=== PATIENT | female | born 1935 | race Caucasian/White ===

== ENCOUNTER 2017-04-28 12:05 | Emergency (ER) | payer MEDICARE, OTHER ==
[~2017-04-28] VITALS: Ht 167.6 cm; Wt 74.0 kg
[~2017-04-28 12:05] MED LIST: ALPR0.25 PO; ATEN-100 PO; CALC1TAB42 PO; CYCL1PAK PO; DILT30 PO; DOCU1CAP39 PO; DULO20 PO; DUONI NEB; ENEMENE PR; FENT25DI T-DERMAL; LANO0.1212 PO; LIDO5T TD; MILKSUS5 PO; NEUR600T PO; OXYC1SOL5 PO; PERI8.6T PO; PRAV20 PO; PREG25 PO; PRIL20CA PO; TRAZ50TA4 PO; WARF2 PO; [UNRECOGNIZED DRUG - OTHER] PO
[2017-04-28 12:26] VITALS: BP 128/58; PULSE 59; RESP 20; TEMP 97.8; O2SAT 95
[2017-04-28 12:36] VITALS: O2SAT 95
--- NOTE | 2017-04-28 12:37 | PD ---
HPI Chief Complaint: Dizziness Time Seen by Provider: 12:32 Travel History International Travel<30 days: No Contact w/Intl Traveler<30days: No Traveled to known affect area: No History of Present Illness HPI 81-year-old female with PMH of A. fib, chronic pain, left AKA, CHF, on Coumadin presents to the ED [facility] for evaluation of intermittent dizziness. Onset this morning. Patient denies vertigo symptoms. She complains of accompanying shortness of breath and nonproductive cough for "about a week." She endorses palpitations, which she states are chronic. She endorses chronic swelling of left lower extremity, no worse today. She denies headache, vision changes, chest pain, abdominal pain, nausea, vomiting, changes in bowel habits, dysuria. She does ambulate on her prosthesis. PFSH Past Medical History Hx Anticoagulant Therapy: Yes (warfarin) Arthritis: Yes Atrial Fibrillation: Yes Blood Disorders: No Anxiety: Yes Depression: No Heart Rhythm Problems: Yes (a fib) Cancer: No Cardiovascular Problems: Yes High Cholesterol: Yes Chemotherapy: No Chest Pain: No Congestive Heart Failure: Yes Diabetes: No Diminished Hearing: Yes Endocrine: No Gastrointestinal Disorders: Yes (ibs) GERD: Yes Genitourinary: No Hypertension: Yes Immune Disorder: No Musculoskeletal: Yes (chronic back pain) Neurologic: No Reproductive: No Respiratory: Yes (asthma) Immunizations Current: Yes Radiation Therapy: No Sleep Apnea: No Thyroid Disease: No Triglycerides - High: Yes (hyperlipidemia) Ulcer: No Past Surgical History Endocrine Surgery: Yes (TONSILLECTEMY) Eye Surgery: Yes (cataract) Gynecologic Surgery: Yes (TUBAL LIGATION) Hysterectomy: Yes Tonsillectomy: Yes Other Surgery: Yes (thoracic back surgery ,hysterectomy) Social History Alcohol Use: No Tobacco Use: No (quit 6 yrs ago) Substance Use: No Allergies-Medications (Allergen,Severity, Reaction): Coded Allergies: vancomycin (Unverified Allergy, Intermediate, Itching, 04/28/17) *MDRO Multi-Drug Resistant Organism (Verified Adverse Reaction, Unknown, 04/28/17) 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; 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 Uncoded Allergies: cefepime (Allergy, Severe, Rash, 05/13/15) Reported Meds & Prescriptions Reported Meds & Active Scripts Active Macrobid (Nitrofurantoin Monoh/Nitrofur Macro) 100 Mg Cap 100 Mg PO BID 5 Days Reported Zanaflex (Tizanidine HCl) 4 Mg Tab 4 Mg PO Q8HR PRN Milk of Magnesia Liq (Magnesium Hydroxide) 400 Mg/5 Ml Susp 30 Ml PO Q4HR PRN Loperamide (Loperamide HCl) 2 Mg Tablet 4 Mg PO INITIAL DOSE PRN After initial dose give 1 tab (2mg) after each loose stool-not to exceed 8 tablets/24hrs-May give liquid if unable to give tablet Vajrpqjh-Byueulowa-Uxovjlohsjk Liq 200-200-20 Mg/5 Ml Susp 30 Ml PO Q4HR PRN Take between meals or as directed. Shake well. Do not exceed 120 mL/24 hrs. Dulcolax Supp (Bisacodyl) 10 Mg Supp 10 Mg RECTAL DAILY PRN Tylenol (Acetaminophen) 325 Mg Tab 650 Mg PO Q4H PRN Coumadin (Warfarin) 1 Mg Tab 1 Mg PO DAILY@1600 Symbicort Inh (Budesonide/Formoterol Fumarate) 160-4.5 Mcg/Act Aero 1 Puff INH BID Senna-Docusate Sodium Tablet (Sennosides/Docusate Sodium) 8.6 Mg-50 Mg Tablet 1 Tab PO BID Requip (Ropinirole HCl) 0.25 Mg Tab 0.25 Mg PO HS Miralax Powder (Polyethylene Glycol 3350 Powder) 17 Gm Powd 17 Gm PO DAILY Mix and dissolve one measuring capful (17 grams) in 4-8oz water/juice. Prilosec (Omeprazole Magnesium) 20 Mg Tab 20 Mg PO DAILY Nystatin Topical 100,000 Unit/Gram Pow 1 Applic TOPICAL BID Apply to groin and inner thighs (instead of baby powder) Multi-Vitamin/Minerals (Multiple Vitamins W/ Minerals) 1 Tab Tab 1 Tab PO DAILY Lovastatin 20 Mg Tab 20 Mg PO DAILY Hydroxyzine HCl 25 Mg Tab 25 Mg PO HS Neurontin (Gabapentin) 600 Mg Tab 600 Mg PO TID Fentanyl Patch 72 HR (Fentanyl) 25 Mcg/Hr Patch 25 Mcg T-DERMAL Q72H Remove old patch before applying new patch Cymbalta DR (Duloxetine HCl) 30 Mg Capdr 30 Mg PO DAILY Cardizem (Diltiazem HCl) 30 Mg Tab 30 Mg PO QID Lanoxin (Digoxin) 125 Mcg Tablet 125 Mcg PO DAILY Caltrate 600+D Chew (Calcium Carbonate-Vitamin D Chew) 600-400 Mg-Unit Chew 1 Tab PO BID Tenormin (Atenolol) 25 Mg Tab 25 Mg PO DAILY Review of Systems Except as stated in HPI: all other systems reviewed are Neg Physical Exam Narrative GENERAL: Well-nourished, well-developed pleasant white female in no acute distress. A&O 4 SKIN: Focused skin assessment warm/dry. HEAD: Normocephalic. Atraumatic. EYES: No scleral icterus. No injection or drainage. NECK: Supple, trachea midline. No JVD or lymphadenopathy. CARDIOVASCULAR: Regular rate and rhythm without murmurs, gallops, or rubs. RESPIRATORY: Breath sounds clear and equal bilaterally. No accessory muscle use. GASTROINTESTINAL: Abdomen soft, non-tender, nondistended. Active bowel sounds. MUSCULOSKELETAL: No cyanosis. Left AKA with no signs of infection. Trace edema in the right lower extremity. NEUROLOGICAL: Awake and alert. Cranial nerves II through XII intact. Motor and sensory grossly within normal limits. Five out of 5 muscle strength in all muscle groups. Normal speech. BACK: Nontender without obvious deformity. No CVA tenderness. Data Data Last Documented VS Vital Signs Date Time Temp Pulse Resp B/P (MAP) Pulse Ox O2 Delivery O2 Flow Rate FiO2 04/28/17 12:36 95 Room Air 04/28/17 12:26 97.8 59 20 Orders Orders Electrocardiogram (04/28/17 12:32) Complete Blood Count With Diff (04/28/17 12:32) Comprehensive Metabolic Panel (04/28/17 12:32) Magnesium (Mg) (04/28/17 12:32) B-Type Natriuretic Peptide (04/28/17 12:32) Troponin I (04/28/17 12:32) Act Partial Throm Time (Ptt) (04/28/17 12:32) Prothrombin Time / Inr (Pt) (04/28/17 12:32) Urinalysis - C+S If Indicated (04/28/17 12:32) Chest, Single Ap (04/28/17 12:32) Ct Brain W/O Iv Contrast(Rout) (04/28/17 12:32) Ecg Monitoring (04/28/17 12:32) Iv Access Insert/Monitor (04/28/17 12:32) Oximetry (04/28/17 12:32) Sodium Chloride 0.9% Flush (Ns Flush) (04/28/17 12:45) Cath For Specimen (04/28/17 12:57) Sodium Chlorid 0.9% 500 Ml Inj (Ns 500 M (04/28/17 13:45) Orthostatic Vital Signs (04/28/17 13:41) Calcium Carbonate Chew (Tums Chew) (04/28/17 13:45) Urine Culture (04/28/17 13:40) Ceftriaxone Inj (Rocephin Inj) (04/28/17 14:30) Ed Discharge Order (04/28/17 14:32) Labs Laboratory Tests Test 04/28/17 12:40 04/28/17 13:40 White Blood Count 7.1 TH/MM3 Red Blood Count 4.44 MIL/MM3 Hemoglobin 13.1 GM/DL Hematocrit 39.5 % Mean Corpuscular Volume 89.1 FL Mean Corpuscular Hemoglobin 29.5 PG Mean Corpuscular Hemoglobin Concent 33.1 % Red Cell Distribution Width 13.8 % Platelet Count 185 TH/MM3 Mean Platelet Volume 8.3 FL Neutrophils (%) (Auto) 65.2 % Lymphocytes (%) (Auto) 20.9 % Monocytes (%) (Auto) 8.7 % Eosinophils (%) (Auto) 4.1 % Basophils (%) (Auto) 1.1 % Neutrophils # (Auto) 4.6 TH/MM3 Lymphocytes # (Auto) 1.5 TH/MM3 Monocytes # (Auto) 0.6 TH/MM3 Eosinophils # (Auto) 0.3 TH/MM3 Basophils # (Auto) 0.1 TH/MM3 CBC Comment DIFF FINAL Differential Comment Prothrombin Time 12.9 SEC Prothromb Time International Ratio 1.3 RATIO Activated Partial Thromboplast Time 25.2 SEC Blood Urea Nitrogen 19 MG/DL Creatinine 0.54 MG/DL Random Glucose 98 MG/DL Total Protein 5.6 GM/DL Albumin 2.7 GM/DL Calcium Level 8.4 MG/DL Magnesium Level 1.8 MG/DL Alkaline Phosphatase 127 U/L Aspartate Amino Transf (AST/SGOT) 16 U/L Alanine Aminotransferase (ALT/SGPT) 22 U/L Total Bilirubin 0.3 MG/DL Sodium Level 144 MEQ/L Potassium Level 4.0 MEQ/L Chloride Level 109 MEQ/L Carbon Dioxide Level 28.3 MEQ/L Anion Gap 7 MEQ/L Estimat Glomerular Filtration Rate 108 ML/MIN Troponin I LESS THAN 0.02 NG/ML B-Type Natriuretic Peptide 145 PG/ML Urine Color YELLOW Urine Turbidity HAZY Urine pH 5.5 Urine Specific [place] 1.024 Urine Protein 30 mg/dL Urine Glucose (UA) NEG mg/dL Urine Ketones NEG mg/dL Urine Occult Blood SMALL Urine Nitrite POS Urine Bilirubin NEG Urine Urobilinogen LESS THAN 2.0 MG/DL Urine Leukocyte Esterase LARGE Urine RBC 11 /hpf Urine WBC 141 /hpf Urine Squamous Epithelial Cells 1 /hpf Urine Calcium Oxalate Crystals OCC /hpf Urine Bacteria MANY /hpf Urine Mucus MOD /lpf Microscopic Urinalysis Comment CATH-CULTURE IND MDM Medical Decision Making Medical Screen Exam Complete: Yes Emergency Medical Condition: Yes Differential Diagnosis UTI versus dehydration versus metabolic derangement versus less likely ICH versus anxiety versus other Narrative Course 81-year-old female with PMH of A. fib, chronic pain, left AKA, CHF, on Coumadin presents to the ED from her [facility] for evaluation of intermittent dizziness. Onset this morning. Patient denies vertigo symptoms. She complains of accompanying shortness of breath and nonproductive cough for "about a week." She endorses palpitations, which she states are chronic. She endorses chronic swelling of left lower extremity, no worse today. She denies headache, vision changes, chest pain, abdominal pain, nausea, vomiting, changes in bowel habits, dysuria. She does ambulate on her prosthesis. Vitals reviewed. On physical exam the patient is alert and oriented 4. No focal neuro deficits. Chest is CTAB. Abdomen soft and nontender. Trace edema in the right lower extremity, left lower extremity with AKA without signs of infection. IV was established. Patient was administered 500 mL NS. EKG: Rate 59, A. fib with slow ventricular response. Normal axis. No acute ST changes. Reviewed by Dr. Romero. Similar to previous EKG. Troponin: Negative 1. CXR: No intrathoracic disease per radiology read. CT brain unremarkable. CBC: No leukocytosis or anemia. INR 1.3 CMP: BUN 19, creatinine 0.54. Calcium 8.4 BNP 145 UA: Hazy, nitrite positive. Large leukocyte Estrace, 141 WBCs, 11 RBCs, many bacteria. Culture indicated. The patient was administered 1 g calcium by mouth, 1 g of Rocephin IV. This is UTI. Patient's prescribed Macrobid 100 mg twice a day 5 days. She is instructed to return to the ED should her dizziness not resolve. She stable and discharged to her [facility]. Diagnosis Primary Impression: UTI (urinary tract infection) Qualified Codes: N39.0 - Urinary tract infection, site not specified Referrals: Primary Care Physician Patient Instructions: General Instructions, Urinary Tract Infection in Women ( ED) Additional Instructions: Rest, hydrate. Take all antibiotics until every pill is gone. Follow-up with your primary care provider. Return to the ED for any urgent or emergent medical condition. Med/Other Pt SpecificInfo: Prescription(s) given Scripts Nitrofurantoin Monohydrate Macrocrystals (Macrobid) 100 Mg Cap 100 MG PO BID for Infection for 5 Days, #10 CAP 0 Refills Prov: Dariel Romero MD 04/28/17 Disposition: 03 DISCHARGE TO SNF Condition: Stable Joi James Apr 28, 2017 12:37
[2017-04-28] MEDS ORDERED: SODIUM CHLORIDE 0.9% FLUSH 10 ML FLUSH IVF PRN (12:45)
[2017-04-28 12:54] LABS: AUTOMATED NEUTROPHIL # 4.6 TH/MM3 (1.8-7.7); BASOPHIL # 0.1 TH/MM3 (0-0.2); BASOPHIL % 1.1 % (0.0-2.0); EOSINOPHIL # 0.3 TH/MM3 (0-0.4); EOSINOPHIL % 4.1 % (0.0-4.0); HEMATOCRIT 39.5 % (35.0-46.0); HEMO FLAGS DIFF FINAL; LYMPH % 20.9 % (9.0-44.0); LYMPHOCYTE # 1.5 TH/MM3 (1.0-4.8); MEAN CELL VOLUME 89.1 FL (80.0-100.0); MEAN CORPUSCULAR HEMOGLOBIN 29.5 PG (27.0-34.0); MEAN CORPUSCULAR HGB CONC 33.1 % (32.0-36.0); MONO % 8.7 % (0.0-8.0); NEUT % 65.2 % (16.0-70.0); PLATELET COUNT 185 TH/MM3 (150-450); RED BLOOD COUNT 4.44 MIL/MM3 (4.00-5.30); RED CELL DISTRIBUTION WIDTH 13.8 % (11.6-17.2); WHITE BLOOD COUNT 7.1 TH/MM3 (4.0-11.0)
--- NOTE | 2017-04-28 12:56 | RADRPT ---
EXAM DATE/TIME: 04/28/2017 12:41 [facility] COMPARISON: CHEST SINGLE AP, October 08, 2015, 16:16. INDICATIONS : Shortness of breath and dizziness. MEDICAL HISTORY : Hypertension. Congestive heart failure. A-fib SURGICAL HISTORY : Hysterectomy. Tubal ligation. Back surgery. ENCOUNTER: Initial ACUITY: 1 day PAIN SCORE: 0/10 LOCATION: Bilateral chest FINDINGS: A single view of the chest demonstrates the lungs to be symmetrically aerated without evidence of mas s, infiltrate or effusion. The heart size is enlarged but stable.. Bony structures are stable. Evide nce of previous fusion of the lower thoracic and upper lumbar spine. CONCLUSION: No focal or acute intrathoracic disease. Enrique Reyes MD on April 28, 2017 at 12:54 Board Certified Radiologist. This report was verified electronically.
[2017-04-28 13:04] LABS: APTT (PATIENT) 25.2 SEC (24.3-30.1); INTERNATIONAL NORMALIZED RATIO 1.3 RATIO; PROTHROMBIN TIME - PATIENT 12.9 SEC (9.8-11.6)
[2017-04-28 13:23] LABS: ALT (GPT) 22 U/L (10-53); ANION GAP 7 MEQ/L (5-15); AST (GOT) 16 U/L (15-37); BICARBONATE 28.3 MEQ/L (21.0-32.0); BLOOD UREA NITROGEN 19 MG/DL (7-18); CHLORIDE 109 MEQ/L (98-107); GLOMERULAR FILTRATION RATE 108 ML/MIN (>89); MAGNESIUM 1.8 MG/DL (1.5-2.5); SODIUM (NA) 144 MEQ/L (136-145)
[2017-04-28] MEDS ORDERED: PRIL20TA2 PO (13:24)
[2017-04-28] MEDS ORDERED: FENT25DI T-DERMAL (13:24)
[2017-04-28] MEDS ORDERED: MILKSUS PO (13:24)
[2017-04-28] MEDS ORDERED: HYDR-3133 PO (13:24)
[2017-04-28] MEDS ORDERED: ATEN1TAB73 PO (13:24)
[2017-04-28] MEDS ORDERED: DULC10SU3 RECTAL (13:24)
[2017-04-28] MEDS ORDERED: MULTTAB62 PO (13:24)
[2017-04-28] MEDS ORDERED: LOVA20TA PO (13:24)
[2017-04-28] MEDS ORDERED: NYST1POW16 TOPICAL (13:24)
[2017-04-28] MEDS ORDERED: CALTCHW5 PO (13:24)
[2017-04-28] MEDS ORDERED: TIZA4 PO (13:24)
[2017-04-28] MEDS ORDERED: LANO0.12 PO (13:24)
[2017-04-28] MEDS ORDERED: MIRA3350 PO (13:24)
[2017-04-28] MEDS ORDERED: CYMB30CA PO (13:24)
[2017-04-28] MEDS ORDERED: SYMB160A INH (13:24)
[2017-04-28] MEDS ORDERED: TYLE325T PO (13:24)
[2017-04-28] MEDS ORDERED: SENN8.6T88 PO (13:24)
[2017-04-28] MEDS ORDERED: DILT31TA PO (13:24)
[2017-04-28] MEDS ORDERED: NEUR600T PO (13:24)
[2017-04-28] MEDS ORDERED: ROPI.25 PO (13:24)
[2017-04-28] MEDS ORDERED: LOPE2TAB21 PO (13:24)
[2017-04-28] MEDS ORDERED: COUM1TAB PO (13:24)
[2017-04-28] MEDS ORDERED: ALUMSUS2 PO (13:24)
[2017-04-28 13:27] LABS: ALKALINE PHOSPHATASE 127 U/L (45-117); TOTAL BILIRUBIN ADULT 0.3 MG/DL (0.2-1.0)
[2017-04-28] MEDS ORDERED: SODIUM CHLORID 0.9% 500 ML INJ 500 ML IV ONE (13:45)
[2017-04-28] MEDS ORDERED: CALCIUM CARBONATE 500 MG CHEWABLE TAB CHEW ONE (13:45)
[2017-04-28 14:19] LABS: BACTERIA, URINE MANY /hpf; BLOOD, URINE SMALL (NEG); CALCIUM OXALATE CRYSTALS,URINE OCC /hpf; COMMENT (UR) CATH-CULTURE IND; CULTURE IF INDICATED CATH CULTURE IND; GLUCOSE,URINE NEG (NEG); KETONE, URINE NEG (NEG); MUCUS URINE MOD /lpf (OCC); NITRITE,URINE POS (NEG); PH, URINE 5.5 (5.0-8.5); SQUAMOUS EPITHELIAL CELL URINE 1 /hpf (0-5); URINE COLOR YELLOW (YELLW/STRAW)
--- NOTE | 2017-04-28 14:25 | RADRPT ---
EXAM DATE/TIME: 04/28/2017 14:06 [facility] COMPARISON: No previous studies available for comparison. INDICATIONS : Intermittent dizziness. RADIATION DOSE: 30.95 CTDIvol (mGy) MEDICAL HISTORY : Cardiovascular disease. Hypertension. SURGICAL HISTORY : Tonsillectomy. ENCOUNTER: Initial ACUITY: 1 day PAIN SCALE: 0/10 LOCATION: cranial TECHNIQUE: Multiple contiguous axial images were obtained of the head. Using automated exposure control and adj ustment of the mA and/or kV according to patient size, radiation dose was kept as low as reasonably a chievable to obtain optimal diagnostic quality images. DICOM format image data is available electro nically for review and comparison. FINDINGS: CEREBRUM: The ventricles are normal for age. No evidence of midline shift, mass lesion, hemorrhage or acute in farction. No extra-axial fluid collections are seen. POSTERIOR FOSSA: The cerebellum and brainstem are intact. The 4th ventricle is midline. The cerebellopontine angle i s unremarkable. EXTRACRANIAL: The visualized portion of the orbits is intact. Chronic sinus disease in the sphenoid sinuses bilater ally, right greater than left. SKULL: The calvaria is intact. No evidence of skull fracture. CONCLUSION: 1. Unremarkable CT scan of the brain. 2. Chronic sinus disease involving the sphenoid sinuses. Enrique Reyes MD on April 28, 2017 at 14:22 Board Certified Radiologist. This report was verified electronically.
[2017-04-28] MEDS ORDERED: cefTRIAXone INJ 1,000 MG in SODIUM CHLORIDE 0.9% INJ 25 ML IV ONE (14:30)
[2017-04-28] MEDS ORDERED: MACR100C2 PO (14:31)
--- NOTE | 2017-04-29 13:19 | EKG ---
Date Performed: 04/28/2017 Time Performed: 12:31:37 PTAGE: 81 years EKG: Electrical baseline artifact Atrial fibrillation with slightly slow ventricular response Lo w limb lead voltage Poor initial anterior forces, which may be normal variant PREVIOUS TRACING 10/22/15 Since previous tracing, heart rate is slower, otherwise no signi ficant change. DOCTOR: Antolin Varghese Interpretating Date/Time 04/29/2017 13:18:11
== END 2017-04-28 16:35 ==
LOC: NEPC 12:05
DX: N39.0 Urinary tract infection, site not specified (principal); B96.29 Other Escherichia coli [E. coli] as the cause of diseases classified elsewhere; I48.91 Unspecified atrial fibrillation; E78.00 Pure hypercholesterolemia, unspecified; I11.0 Hypertensive heart disease with heart failure; I50.9 Heart failure, unspecified; K21.9 Gastro-esophageal reflux disease without esophagitis; Z79.01 Long term (current) use of anticoagulants
CPT/HCPCS: 70450; 71010; 80053; 81001; 83735; 83880; 84484; 85025; 85610; 85730; 87077; 87086; 87186; 93005; 96365; 99285; J0696

== ENCOUNTER 2018-03-08 08:41 | Inpatient (IN) ==
[2018-03-08] MEDS ORDERED: Acetaminophen 325 MG Tablet PO ONE (08:59)
[2018-03-08] MEDS ORDERED: Sod Chloride 0.9% Inj 100 ML IV.SIG SCH (09:00)
[2018-03-08] MEDS ORDERED: Sod Chloride 0.9% Inj 1,000 ML IV.SIG SCH ×2 (09:00)
[2018-03-08] MEDS ORDERED: Piperacil/Tazo 3.375 GM Premix 50 ML IV.SIG ONE (09:02)
--- NOTE | 2018-03-08 09:10 | ED ---
HPI General Chief Complaint: Fever Stated Complaint: fever Time Seen by Provider: 03/08/18 08:47 Source: EMS Mode of arrival: EMS Limitations: no limitations History of Present Illness HPI Narrative: Patient is an 82-year-old female who was brought to the emergency room by EMS for evaluation of "altered mental status with fever." Patient is a resident at [facility]. EMS were called as they were reporting altered mental status. Patient is currently alert and oriented x3, patient reports that for the past few days she has had a productive cough, reports that she is also had urinary urgency and frequency. Patient denies any headache or dizziness, denies any chest pain or shortness of breath, denies any abdominal pain, denies any weakness. Related Data Allergies Allergy/AdvReac Type Severity Reaction Status Date / Time vancomycin Allergy Intermediate Itching Unverified 04/28/17 12:25 cefepime Allergy Severe Rash Uncoded 05/13/15 12:40 *MDRO Multi-Drug Resistant AdvReac Unknown Uncoded 04/28/17 12:25 Organism Review of Systems ROS: all other systems reviewed are negative [facility] Medical History Medical History CHF (congestive heart failure) (Acute) COPD (chronic obstructive pulmonary disease) (Acute) Falls (Acute) Hypertension (Acute) Weakness (Acute) Surgical History Surgical History Status post below knee amputation of left lower extremity (Acute) Social History Social History Substance History: No History of Abuse Second Hand Smoke Exposure: No Smoking Status: Never smoker How Often Do You Have a Drink Containing Alcohol: Never Recent Travel in [facility] within the Last 8 Weeks: No Recent Out of Country Travel within the Last 8 Weeks: No Immunization History Tetanus Immunization: Unsure Exam Narrative Exam Narrative: GENERAL: mild distress, patient with a cellulitis to her right anterior thigh which radiates to her left anterior thigh. SKIN: Focused skin assessment warm/dry. HEAD: Atraumatic. Normocephalic. EYES: Pupils equal and round. No scleral icterus. No injection or drainage. ENT: No nasal bleeding or discharge. Mucous membranes pink and moist. NECK: Trachea midline. No JVD. CARDIOVASCULAR: Tachycardic with a systolic murmur appreciated. RESPIRATORY: No accessory muscle use. Clear to auscultation. Breath sounds equal bilaterally. GASTROINTESTINAL: Abdomen soft, non-tender, nondistended. Hepatic and splenic margins not palpable. MUSCULOSKELETAL: Patient with a left-sided AKA. No clubbing. No cyanosis. No edema. NEUROLOGICAL: Awake and alert. No obvious cranial nerve deficits. Motor grossly within normal limits. Normal speech. PSYCHIATRIC: Appropriate mood and affect; insight and judgment normal. Course Initial Documented Vital Signs Temperature 103.3 F H 03/08/18 08:52 Pulse Rate 124 H 03/08/18 08:52 Respiratory Rate 24 03/08/18 08:52 Blood Pressure 196/85 H 03/08/18 08:52 Last Documented Vital Signs Temperature 101.2 F H 03/08/18 10:26 Pulse Rate 108 H 03/08/18 10:26 Respiratory Rate 18 03/08/18 10:26 Blood Pressure 128/60 03/08/18 10:26 Pulse Oximetry 97 03/08/18 10:26 Medical Decision Making [facility] Narrative Medical decision making narrative: During the course of the patients emergency department visit, the patients history, examination, and differential diagnosis were reviewed with the patient. The patient was placed on a potline monitor with oximetry and frequent blood pressure monitoring. The patient had an IV access obtained and blood work sent for analysis. The patient was initially provided IVF, acetaminophen as well as IV vancomycin Patient with cellulitis to her right anterior to lateral thigh The patients laboratory studies were reviewed and remarkable for wbc 9.0, hgb 14.2, hcgt 43.5, platelet 153 sodium 140, chloride 106, bun 13, cr 0.68, glucose 149 lactic acid 2.0 X-ray of the chest shows mild bibasilar and right perihilar atelectatic changes and scarring, no acute infiltrates,, compensated cardiomegaly. Patient was only given 1 L of IV fluid, the other liters of IV fluid were held given her history of CHF. Patient does have SIRS criteria, she does have a UTI as well as a right thigh cellulitis and will require admission to the hospital. Case was reviewed with Dr. Daniel who accepts patient to service. Medical Screen Exam Complete: Yes Emergency Medical Condition: Yes Differential Diagnosis Differential Diagnosis: SEPSIS, pneumonia, UTI, bacteremia, cellulitis Lab Data Result diagrams: 03/08/18 09:00 03/08/18 09:00 Lab Results 03/08/18 03/08/18 03/08/18 Range/Units 09:00 09:00 09:00 WBC 9.0 (4.0-11.0) th/mm3 RBC 4.73 (4.00-5.30) mil/mm3 Hgb 14.2 (11.6-15.3) gm/dL Hct 43.5 (35.0-46.0) % MCV 92.2 (80.0-100.0) fL MCH 30.0 (27.0-34.0) pg MCHC 32.6 (32.0-36.0) % RDW 14.6 (11.6-17.2) % Plt Count 153 (150-450) th/mm3 MPV 8.1 (7.0-11.0) fL Neut % (Auto) 87.4 H (16.0-70.0) % Lymph % (Auto) 6.8 L (9.0-44.0) % [place] % (Auto) 2.9 (0.0-8.0) % Eos % (Auto) 2.4 (0.0-4.0) % Baso % (Auto) 0.5 (0.0-2.0) % Neut # (Auto) 7.9 H (1.8-7.7) th/mm3 Lymph # (Auto) 0.6 L (1.0-4.8) th/mm3 [place] # (Auto) 0.3 (0.0-0.9) th/mm3 Eos # (Auto) 0.2 (0.0-0.4) th/mm3 Baso # (Auto) 0.0 (0.0-0.2) th/mm3 WBC Differential . Differential Comment Auto diff final PT 16.1 H (9.8-11.6) sec INR 1.6 Ratio APTT 28.7 (24.3-30.1) sec Sodium 140 (136-145) meq/L Potassium 4.8 (3.5-5.1) meq/L Chloride 106 (98-107) meq/L Carbon Dioxide 27.9 (21.0-32.0) meq/L Anion Gap 6 (5-15) meq/L BUN 13 (7-18) mg/dL Creatinine 0.68 (0.50-1.00) mg/dL Estimated GFR 83 L (>89) mL/min Random Glucose 149 H (74-106) mg/dL Lactic Acid (0.4-2.0) mmol/L Calcium 8.1 L (8.5-10.1) mg/dL Magnesium 1.8 (1.5-2.5) mg/dL Total Bilirubin 0.8 (0.2-1.0) mg/dL AST 29 (15-37) U/L ALT 19 (10-53) U/L Alkaline Phosphatase 123 H (45-117) U/L Total Protein 6.5 (6.4-8.2) g/dL Albumin 2.8 L (3.4-5.0) g/dL Urine Color (Yellw/Straw) Urine Clarity (Clear) Urine pH (5.0-8.5) Ur Specific [place] (1.002-1.035) Urine Protein (Neg-Trace) mg/dL Urine Glucose (UA) (Negative) mg/dL Urine Ketones (Negative) mg/dL Urine Occult Blood (Negative) Urine Nitrate (Negative) Urine Bilirubin (Negative) Urine Urobilinogen (Less than 2) mg/dL Ur Leukocyte Esterase (Negative) Urine RBC (0-3) /hpf Urine WBC (0-5) /hpf Ur Squamous Epith Cells (0-5) /hpf Urine Bacteria (None) /hpf Micro UA Comment Ur Microscopic Review Urine Culture Comments 03/08/18 03/08/18 Range/Units 09:00 09:11 WBC (4.0-11.0) th/mm3 RBC (4.00-5.30) mil/mm3 Hgb (11.6-15.3) gm/dL Hct (35.0-46.0) % MCV (80.0-100.0) fL MCH (27.0-34.0) pg MCHC (32.0-36.0) % RDW (11.6-17.2) % Plt Count (150-450) th/mm3 MPV (7.0-11.0) fL Neut % (Auto) (16.0-70.0) % Lymph % (Auto) (9.0-44.0) % [place] % (Auto) (0.0-8.0) % Eos % (Auto) (0.0-4.0) % Baso % (Auto) (0.0-2.0) % Neut # (Auto) (1.8-7.7) th/mm3 Lymph # (Auto) (1.0-4.8) th/mm3 [place] # (Auto) (0.0-0.9) th/mm3 Eos # (Auto) (0.0-0.4) th/mm3 Baso # (Auto) (0.0-0.2) th/mm3 WBC Differential Differential Comment PT (9.8-11.6) sec INR Ratio APTT (24.3-30.1) sec Sodium (136-145) meq/L Potassium (3.5-5.1) meq/L Chloride (98-107) meq/L Carbon Dioxide (21.0-32.0) meq/L Anion Gap (5-15) meq/L BUN (7-18) mg/dL Creatinine (0.50-1.00) mg/dL Estimated GFR (>89) mL/min Random Glucose (74-106) mg/dL Lactic Acid 2.0 (0.4-2.0) mmol/L Calcium (8.5-10.1) mg/dL Magnesium (1.5-2.5) mg/dL Total Bilirubin (0.2-1.0) mg/dL AST (15-37) U/L ALT (10-53) U/L Alkaline Phosphatase (45-117) U/L Total Protein (6.4-8.2) g/dL Albumin (3.4-5.0) g/dL Urine Color Yellow (Yellw/Straw) Urine Clarity Hazy H (Clear) Urine pH 7.0 (5.0-8.5) Ur Specific [place] 1.010 (1.002-1.035) Urine Protein Negative (Neg-Trace) mg/dL Urine Glucose (UA) Negative (Negative) mg/dL Urine Ketones Trace H (Negative) mg/dL Urine Occult Blood Small H (Negative) Urine Nitrate Positive H (Negative) Urine Bilirubin Negative (Negative) Urine Urobilinogen Less than 2 (Less than 2) mg/dL Ur Leukocyte Esterase Moderate H (Negative) Urine RBC 3 (0-3) /hpf Urine WBC 37 H (0-5) /hpf Ur Squamous Epith Cells 1 (0-5) /hpf Urine Bacteria Moderate H (None) /hpf Micro UA Comment Culture indicated Ur Microscopic Review Not Reportable Urine Culture Comments Culture indicated Imaging Data Radiologist's impression: Chest X-Ray 03/08/18 09:00 CONCLUSION: 1. Mild bibasilar and right perihilar atelectatic changes/scarring. Otherwise, no acute infiltrate. 2. Compensated cardiomegaly. 3. Stable degenerative changes of the dorsal spine with transpedicular fixation of the thoracolumbar junction. Discharge Plan Discharge Disposition Patient Disposition: 30 Still Patient Discharge Condition Condition: Serious Discharge Details Diagnosis: Sepsis, Cellulitis, Acute UTI Physicians Team ED Provider: Jeannine Matson Primary Care Provider: UNKNOWN, Status ED Status: With Doctor
[2018-03-08 09:19] LABS: Baso % (Auto) 0.5 % (0.0-2.0); Eos # (Auto) 0.2 th/mm3 (0.0-0.4); Eos % (Auto) 2.4 % (0.0-4.0); Hematocrit 43.5 % (35.0-46.0); Hemoglobin 14.2 gm/dL (11.6-15.3); Lymph # (Auto) 0.6 th/mm3 (1.0-4.8); Lymph % (Auto) 6.8 % (9.0-44.0); Mean Corpuscular HGB Conc 32.6 % (32.0-36.0); Mean Corpuscular Volume 92.2 fL (80.0-100.0); Mean Platelet Volume 8.1 fL (7.0-11.0); Mono # (Auto) 0.3 th/mm3 (0.0-0.9); Mono % (Auto) 2.9 % (0.0-8.0); Neut # (Auto) 7.9 th/mm3 (1.8-7.7); Neut % (Auto) 87.4 % (16.0-70.0); Platelet Count 153 th/mm3 (150-450); Red Blood Count 4.73 mil/mm3 (4.00-5.30); Red Cell Distribution Width 14.6 % (11.6-17.2)
[2018-03-08 09:27] LABS: Activated Partial Thrombo Time 28.7 sec (24.3-30.1); INR 1.6 Ratio; Prothrombin Time 16.1 sec (9.8-11.6)
[2018-03-08 09:33] LABS: Alanine Aminotransferase 19 U/L (10-53)
[2018-03-08 09:35] LABS: Alkaline Phosphatase 123 U/L (45-117); Total Protein 6.5 g/dL (6.4-8.2)
--- NOTE | 2018-03-08 09:48 | XR ---
EXAM DATE: 03/08/2018 9:00 AM EDT AGE/SEX: 82 years / Female INDICATIONS: Shortness of breath. CLINICAL DATA: This is the patient's initial encounter. Patient reports that signs and symptoms have been present for 1 day and indicates a pain score of 0/10. MEDICAL/SURGICAL HISTORY: Hypertension. Congestive heart failure. AFIB. None. COMPARISON: [facility] – [place] CHEST SINGLE AP, 04/28/2017. . FINDINGS: A single AP view of the chest demonstrates the lungs to be symmetrically aerated with mild bibasilar atelectatic changes. Some linear atelectasis or scarring seen in the right perihilar distribution as well. Heart size is prominent but well compensated. Transpedicular fixation in the thoracolumbar junc tion. Osseous structures are intact with some degenerative spurring of the dorsal spine. CONCLUSION: 1. Mild bibasilar and right perihilar atelectatic changes/scarring. Otherwise, no acute infiltrate. 2. Compensated cardiomegaly. 3. Stable degenerative changes of the dorsal spine with transpedicular fixation of the thoracolumbar junction. Electronically signed by: Amilcar Gandhi MD 03/08/2018 9:46 AM EDT
[2018-03-08 09:49] LABS: Bacteria,Urine Moderate /hpf; Bilirubin,Urine Negative (Negative); Clarity,Urine Hazy (Clear); Color,Urine Yellow (Yellw/Straw); Glucose,Urine (UA) Negative (Negative); Leukocyte Esterase,Urine Moderate (Negative); Nitrite,Urine Positive (Negative); Squamous Epithelial Cell,Urine 1 /hpf (0-5)
[2018-03-08 09:54] LABS: Albumin 2.8 g/dL (3.4-5.0); Anion Gap 6 meq/L (5-15); Aspartate Aminotransferase 29 U/L (15-37); Blood Urea Nitrogen 13 mg/dL (7-18); Calcium 8.1 mg/dL (8.5-10.1); Carbon Dioxide 27.9 meq/L (21.0-32.0); Chloride 106 meq/L (98-107); Glomerular Filtration Rate 83 mL/min (>89); Glucose,Random 149 mg/dL (74-106); Magnesium 1.8 mg/dL (1.5-2.5); Sodium 140 meq/L (136-145)
[2018-03-08 09:57] LABS: Potassium 4.8 meq/L (3.5-5.1)
[2018-03-08] MEDS ORDERED: Azithromycin 250 MG Tablet PO ONE (10:42)
[2018-03-08] MEDS ORDERED: Bisacodyl 10 MG Supp RECTAL PRN (10:44)
[2018-03-08] MEDS ORDERED: Acetaminophen 325 MG Tablet PO PRN (10:44)
[2018-03-08] MEDS: Enoxaparin Inj 40 MG/0.4 ML Syringe SQ SCH (14:09)
[2018-03-08 15:24] LABS: Creatine Kinase 74 U/L (26-192)
--- NOTE | 2018-03-08 21:07 | P.HP ---
History of Present Illness Service: Ms. Bernstein is a pleasant 82 year old female with probable history of Atrial fibrillation, hyperlipidemia, left sided BKA who presents to the ED due to altered mental status, fever. Patient is a resident of [facility]. By the time ED provider evaluated patient, she was alert, oriented x 3 and coherent. At the time of this interview (around noon on 03/08/2018), patient also was coherent. She denies any chest pain, cough, dyspnea. She reports some dysuria but no hematuria. She also reports some mild redness of her lower extremity especially around her thighs. She reports no orthopnea but reports some leg swelling. No changes bladder or bowel habits. PMH: Atrial fibrillation, COPD, Hypertension, hyperlipidemia PSH: Back surgery, left sided BKA Social history: No smoking or drinking. Family history: No family history of Alzheimer's or Parkinson's. Primary Care Physician: UNKNOWN Inpatient Certification: I certify that the inpatient services were ordered in accordance with Medicare regulations governing the order. This includes certification that hospital inpatient services are reasonable and necessary and in the case of services not specified as inpatient-only under 42 CFR 419.22(n), that they are appropriately provided as inpatient services in accordance to with the 2-midnight benchmark under 43 CFR 412.3(e) Estimated Total Length of Stay (Days): 3 Plans for Post Hospital Care: Not yet determined Review of Systems All other systems reviewed negative except as stated in HPI [facility] - History History Provided By: Patient - Medical History Medical History: Medical History (Last Reviewed 03/08/18 @ 09:11 by Jeannine Matson) CHF (congestive heart failure) COPD (chronic obstructive pulmonary disease) Falls Hypertension Weakness - Surgical History Surgical History: Surgical History (Last Reviewed 03/08/18 @ 09:11 by Jeannine Matson) Status post below knee amputation of left lower extremity - Tobacco History Second Hand Smoke Exposure: No Tobacco Use In Past 30 Days: No Smoking Status: Former smoker - Alcohol History How Often Do You Have a Drink Containing Alcohol: Never - Substance Use History Substance History: No History of Abuse - Travel History Recent Travel in the [place] Within the Last 8 Weeks: No Recent Travel Out of the Country Within the Last 8 Weeks: No - Immunization History Tetanus Immunization: Unsure Hx Influenza Vaccine This Season: Yes Medications and Allergies Active Medications: Active Medications Acetaminophen (Tylenol) 650 mg PO Q4H PRN PRN Reason: Headache, fever, pain 1-4 Al Hydroxide/Mg Hydroxide (Milk Of Magnesia Liq) 30 ml PO Q12H PRN PRN Reason: Mild Constipation Azithromycin (Zithromax) 500 mg PO DAILY [facility] Stop: 03/14/18 08:59 Bisacodyl (Dulcolax Supp) 10 mg RECTAL DAILY PRN PRN Reason: SEVERE CONSITIPATION Enoxaparin Sodium (Lovenox Inj) 40 mg SQ Q24H [facility] Last Admin: 03/08/18 14:09 Dose: 40 mg Sodium Chloride (Ns Inj) 1,000 mls @ 0 mls/hr IV.SIG .Q0M [facility] Last Infusion: 03/08/18 12:43 Dose: Infused Sodium Chloride (Ns Inj) 100 mls @ 0 mls/hr IV.SIG .Q0M [facility] Sodium Chloride (Ns Inj) 1,000 mls @ 0 mls/hr IV.SIG .Q0M [facility] Ceftriaxone Sodium 2,000 mg/ (Sodium Chloride) 100 mls @ 200 mls/hr IV.SIG Q24H [facility] Lactulose (Lactulose Liq) 30 ml PO DAILY PRN PRN Reason: SEVERE CONSITIPATION Ondansetron HCl (Zofran Inj) 4 mg IV.PUSH Q6H PRN PRN Reason: NAUSEA OR VOMITING Sennosides (Senokot) 17.2 mg PO Q12H PRN PRN Reason: Moderate Constipation Allergies Allergy/AdvReac Type Severity Reaction Status Date / Time vancomycin Allergy Intermediate Itching Unverified 04/28/17 12:25 cefepime Allergy Severe Rash Uncoded 05/13/15 12:40 *MDRO Multi-Drug Resistant AdvReac Unknown Uncoded 04/28/17 12:25 Organism Home Medications Medication Instructions Recorded Confirmed Type atenolol 25 mg PO DAILY 03/08/18 03/08/18 History baclofen 10 mg PO BID 03/08/18 03/08/18 History cetirizine 10 mg PO DAILY 03/08/18 03/08/18 History digoxin 0.125 mg PO DAILY 03/08/18 03/08/18 History diltiazem HCl [Cardizem] 30 mg PO TID 03/08/18 03/08/18 History duloxetine 20 mg PO BID 03/08/18 03/08/18 History fentanyl 1 patch TRANSDERMAL Q72H 03/08/18 03/08/18 History furosemide [Lasix] 03/08/18 History gabapentin 600 mg PO TID 03/08/18 03/08/18 History lovastatin 20 mg PO BID 03/08/18 03/08/18 History warfarin 1 mg PO DAILY 03/08/18 03/08/18 History warfarin 2 mg PO [id number] 03/08/18 03/08/18 History Exam Vital signs: Vital Signs 03/08/18 08:52 03/08/18 09:05 03/08/18 09:06 Temperature 103.3 F H 103.3 F H Pulse Rate 124 H 116 H Respiratory Rate 24 20 Blood Pressure 196/85 H 152/65 H Pulse Oximetry 97 96 03/08/18 10:26 03/08/18 12:30 03/08/18 14:17 Temperature 101.2 F H 99.2 F 98.8 F Pulse Rate 108 H 97 H 97 H Respiratory Rate Blood Pressure 128/60 114/53 L 123/73 Pulse Oximetry 97 97 Intake & Output 03/08/18 03/08/18 03/09/18 06:59 18:59 06:59 Intake Total 1050 / 1050 Balance 1050 / 1050 Weight 68.039 kg Intake: IV 1050 / 1050 Zosyn 3.375 GM Premix 50 ML @ 50 / 50 100 mls/hr IV.SIG ONCE ONE Rx#: [id number] NS Inj 1,000 ML @ Wide Open IV. 1000 / 1000 SIG .Q0M [facility] Rx#:[id number] Narrative: GENERAL: This is a well-nourished, well-developed patient, in no apparent distress. SKIN: Lower part of right lower ext has mild erythema and 1+ edema. However, RLE thigh area has significant erythema. Right sided BKA noted. HEAD: Atraumatic. Normocephalic. No temporal or scalp tenderness. EYES: Pupils equal round and reactive. No injection or drainage. ENT: Nose without bleeding, purulent drainage or septal hematoma. Airway patent. NECK: Trachea midline. No lymphadenopathy. Supple, nontender, no meningeal signs. CARDIOVASCULAR: Regular rate and rhythm without murmurs, gallops, or rubs. No JVD. RESPIRATORY: Clear to auscultation. Breath sounds equal bilaterally. No wheezes , rales, or rhonchi. GASTROINTESTINAL: Abdomen soft, non-tender, nondistended. No guarding. MUSCULOSKELETAL: Extremities without clubbing, cyanosis. RLE thigh area erythema , NEUROLOGICAL: Awake and alert. Cranial nerves II through XII intact. No focal neurological deficits. Normal speech. Results - Labs CBC & Chem 7: 03/08/18 09:00 03/08/18 09:00 Labs: Laboratory Results - last 24 hr 03/08/18 03/08/18 03/08/18 09:00 09:00 09:00 WBC 9.0 RBC 4.73 Hgb 14.2 Hct 43.5 MCV 92.2 MCH 30.0 MCHC 32.6 RDW 14.6 Plt Count 153 MPV 8.1 Neut % (Auto) 87.4 H Lymph % (Auto) 6.8 L [place] % (Auto) 2.9 Eos % (Auto) 2.4 Baso % (Auto) 0.5 Neut # (Auto) 7.9 H Lymph # (Auto) 0.6 L [place] # (Auto) 0.3 Eos # (Auto) 0.2 Baso # (Auto) 0.0 WBC Differential . Differential Comment Auto diff final PT 16.1 H INR 1.6 APTT 28.7 Sodium Potassium Chloride Carbon Dioxide Anion Gap BUN Creatinine Estimated GFR Random Glucose Lactic Acid Calcium Magnesium Total Bilirubin AST ALT Alkaline Phosphatase Total Creatine Kinase 74 Troponin I Less than 0.02 L B-Natriuretic Peptide Total Protein Albumin Urine Color Urine Clarity Urine pH Ur Specific [place] Urine Protein Urine Glucose (UA) Urine Ketones Urine Occult Blood Urine Nitrate Urine Bilirubin Urine Urobilinogen Ur Leukocyte Esterase Urine RBC Urine WBC Ur Squamous Epith Cells Urine Bacteria Micro UA Comment Ur Microscopic Review Urine Culture Comments 03/08/18 03/08/18 03/08/18 09:00 09:00 09:00 WBC RBC Hgb Hct MCV MCH MCHC RDW Plt Count MPV Neut % (Auto) Lymph % (Auto) [place] % (Auto) Eos % (Auto) Baso % (Auto) Neut # (Auto) Lymph # (Auto) [place] # (Auto) Eos # (Auto) Baso # (Auto) WBC Differential Differential Comment PT INR APTT Sodium 140 Potassium 4.8 Chloride 106 Carbon Dioxide 27.9 Anion Gap 6 BUN 13 Creatinine 0.68 Estimated GFR 83 L Random Glucose 149 H Lactic Acid 2.0 Calcium 8.1 L Magnesium 1.8 Total Bilirubin 0.8 AST 29 ALT 19 Alkaline Phosphatase 123 H Total Creatine Kinase Troponin I B-Natriuretic Peptide 122 H Total Protein 6.5 Albumin 2.8 L Urine Color Urine Clarity Urine pH Ur Specific [place] Urine Protein Urine Glucose (UA) Urine Ketones Urine Occult Blood Urine Nitrate Urine Bilirubin Urine Urobilinogen Ur Leukocyte Esterase Urine RBC Urine WBC Ur Squamous Epith Cells Urine Bacteria Micro UA Comment Ur Microscopic Review Urine Culture Comments 03/08/18 09:11 WBC RBC Hgb Hct MCV MCH MCHC RDW Plt Count MPV Neut % (Auto) Lymph % (Auto) [place] % (Auto) Eos % (Auto) Baso % (Auto) Neut # (Auto) Lymph # (Auto) [place] # (Auto) Eos # (Auto) Baso # (Auto) WBC Differential Differential Comment PT INR APTT Sodium Potassium Chloride Carbon Dioxide Anion Gap BUN Creatinine Estimated GFR Random Glucose Lactic Acid Calcium Magnesium Total Bilirubin AST ALT Alkaline Phosphatase Total Creatine Kinase Troponin I B-Natriuretic Peptide Total Protein Albumin Urine Color Yellow Urine Clarity Hazy H Urine pH 7.0 Ur Specific [place] 1.010 Urine Protein Negative Urine Glucose (UA) Negative Urine Ketones Trace H Urine Occult Blood Small H Urine Nitrate Positive H Urine Bilirubin Negative Urine Urobilinogen Less than 2 Ur Leukocyte Esterase Moderate H Urine RBC 3 Urine WBC 37 H Ur Squamous Epith Cells 1 Urine Bacteria Moderate H Micro UA Comment Culture indicated Ur Microscopic Review Not Reportable Urine Culture Comments Culture indicated - Imaging Impressions Chest X-Ray 03/08/18 09:00 CONCLUSION: 1. Mild bibasilar and right perihilar atelectatic changes/scarring. Otherwise, no acute infiltrate. 2. Compensated cardiomegaly. 3. Stable degenerative changes of the dorsal spine with transpedicular fixation of the thoracolumbar junction. Caprini VTE Risk Assessment Caprini VTE Risk Assessment: No/Low Risk (score <= 1) Caprini Risk Assessment Model: Point Value = 1 Point Value = 2 Point Value = 3 Point Value = 5 Age 41-60 Minor surgery BMI > 25 kg/m2 Swollen legs Varicose veins or History of unexplained or recurrent spontaneous Oral contraceptives or hormone replacement Sepsis (< 1 month) Serious lung disease, including pneumonia (< 1 month) Abnormal pulmonary function Acute myocardial infarction Congestive heart failure (< 1 month) History of inflammatory bowel disease Medical patient at bed rest Age 61-74 Arthroscopic surgery Major open surgery (> 45 min) Laparoscopic surgery (> 45 min) Malignancy Confined to bed (> 72 hours) Immobilizing plaster cast Central venous access Age >= 75 History of VTE Family history of VTE Factor V Leiden Prothrombin [id number] Lupus anticoagulant Anticardiolipin antibodies Elevated serum homocysteine Heparin-induced thrombocytopenia Other congenital or acquired thrombophilia Stroke (< 1 month) Elective arthroplasty Hip, pelvis, or leg fracture Acute spinal cord injury (< 1 month) Prophylaxis Regimen: Total Risk Factor Score Risk Level Prophylaxis Regimen 0-1 Low Early ambulation 2 Moderate Order ONE of the following: *Sequential Compression Device (SCD) *Heparin 5000 units SQ BID 3-4 Higher Order ONE of the following medications: *Heparin 5000 units SQ TID *Enoxaparin/Lovenox 40 mg SQ daily (WT < 150 kg, CrCl > 30 mL/min) *Enoxaparin/Lovenox 30 mg SQ daily (WT < 150 kg, CrCl > 10-29 mL/min) *Enoxaparin/Lovenox 30 mg SQ BID (WT < 150 kg, CrCl > 30 mL/min) AND/OR *Sequential Compression Device (SCD) 5 or more Highest Order ONE of the following medications: *Heparin 5000 units SQ TID (Preferred with Epidurals) *Enoxaparin/Lovenox 40 mg SQ daily (WT < 150 kg, CrCl > 30 mL/min) *Enoxaparin/Lovenox 30 mg SQ daily (WT < 150 kg, CrCl > 10-29 mL/min) *Enoxaparin/Lovenox 30 mg SQ BID (WT < 150 kg, CrCl > 30 mL/min) AND *Sequential Compression Device (SCD) Assessment and Plan - Plan Ms. Bernstein is a pleasant 82 year old female who presents to the ED for an evaluation for altered mental status. Patient resides at [facility]. Patient was alert, oriented x 3 by the time ED provider assessed patient, she was alert, oriented x 3. Sepsis (Temp > 103F, Resp rate 24, suspected infectiooun celllitis). Acute right lower extremity cellulitis -No purulence noted. -We can likely cover with Ceftriaxone 2g Qday. -De-escalate abx if needed Probable bronchitis or early pneumonia - Continue Ceftriaxone but also start Azithromycin. - DuoNeb PRN Q4hrs while awauke Probable Atrial fibirllation Hyperlipidemia Probable congestive heart failure, likely systolic -Will start Metoprolol tartrate 25mg BID with holding parameters. -Start Cardizem 30mg QID. Consider switching to Long acting Cardizem upon discharge. -Patient is on Warfarin for anticoagulation. INR 1.6. -Patient may benefit from Apixaban instead of Warfarin. Apixaban 2.5mg BID maybe an appropriate dose. -Continue statin. -Will start Torsemide 10mg Qday. Full code. Lovenox.
--- NOTE | 2018-03-08 21:07 | ECG ---
Date Performed: 03/08/2018 Time Performed: 08:50:41 PTAGE: 82 years EKG: TECHNICALLY POOR TRACING WITH MARKED BASELINE WANDERING ATRIAL FIBRILLATION WITH RAPID VENT RICULAR RESPONSE LOW QRS VOLTAGE IN EXTREMITY LEADS NONSPECIFIC ST-T CHANGE Compared to previous trac ing, ventricular response to the atrial fibrillation is more rapid. Repeat tracing recommended ABNORM AL ECG PREVIOUS TRACING : 04/28/2017 12.31 DOCTOR: Antolin Varghese Interpretating Date/Time 03/08/2018 21:05:49
[2018-03-08] MEDS: dilTIAZem 30 MG Tablet PO SCH (23:17)
[2018-03-09] MEDS ORDERED: Baclofen 10 MG Tablet PO ONE (03:24)
--- NOTE | 2018-03-09 08:33 | P.PNIM ---
Subjective Interval history: Follow-up sepsis, early pneumonia and UTI. Patient seen and examined, lying in bed comfortably in no apparent distress, on supplemental O2. Did sleep well. No shortness of breath or chest pain. Tolerating p.o. intake, denies any abdominal pain, nausea or vomiting. Continued on IV antibiotics. VSS. Afebrile. Physical Exam Vital signs: Vital Signs 03/08/18 08:52 03/08/18 09:05 03/08/18 09:06 Temperature 103.3 F H 103.3 F H Pulse Rate 124 H 116 H Respiratory Rate 24 20 Blood Pressure 196/85 H 152/65 H Pulse Oximetry 97 96 03/08/18 10:26 03/08/18 12:30 03/08/18 14:17 Temperature 101.2 F H 99.2 F 98.8 F Pulse Rate 108 H 97 H 97 H Respiratory Rate 18 18 18 Blood Pressure 128/60 114/53 L 123/73 Pulse Oximetry 97 97 03/08/18 20:00 03/09/18 00:00 Temperature 97.4 F L 98.5 F Pulse Rate 86 87 Respiratory Rate 18 18 Blood Pressure 129/62 132/58 L Pulse Oximetry 99 99 Intake & Output 03/08/18 03/09/18 03/09/18 18:59 06:59 18:59 Intake Total 1050 / 1050 340 / 340 Output Total 250 / 250 Balance 1050 / 1050 90 / 90 Weight 68.039 kg 68.3 kg Intake: IV 1050 / 1050 100 / 100 Zosyn 3.375 GM Premix 50 ML @ 50 / 50 100 mls/hr IV.SIG ONCE ONE Rx#: [id number] NS Inj 1,000 ML @ Wide Open IV. 1000 / 1000 SIG .Q0M [facility] Rx#:[id number] Rocephin Inj 2,000 MG In NS Inj 100 / 100 100 ML @ 200 mls/hr IV.SIG Q24H [facility] Rx#:[id number] Oral 240 / 240 Output: Urine 250 / 250 Narrative: GENERAL: This is a well-nourished, well-developed patient, in no apparent distress. Lying in bed comfortably on supplemental O2, 3-1/2 L nasal cannula. SKIN: Lower part of right lower ext has mild erythema and 1+ edema. However, RLE lateral thigh area has significant erythema. No purulence. Left sided BKA noted. HEAD: Atraumatic. Normocephalic. No temporal or scalp tenderness. EYES: Pupils equal round and reactive. No injection or drainage. ENT: Nose without bleeding, purulent drainage or septal hematoma. Airway patent. NECK: Trachea midline. No lymphadenopathy. Supple, nontender, no meningeal signs. CARDIOVASCULAR: Regular rate and rhythm without murmurs, gallops, or rubs. No JVD. RESPIRATORY: Clear to auscultation. Breath sounds equal bilaterally. No wheezes , rales, or rhonchi. GASTROINTESTINAL: Abdomen soft, non-tender, nondistended. No guarding. MUSCULOSKELETAL: Extremities without clubbing, cyanosis. RLE thigh area erythema , NEUROLOGICAL: Awake and alert. Cranial nerves II through XII intact. No focal neurological deficits. Normal speech. Results - Labs CBC & Chem 7: 03/08/18 09:00 03/08/18 09:00 Laboratory Results - last 24 hr 03/08/18 03/08/18 03/08/18 09:00 09:00 09:00 WBC 9.0 RBC 4.73 Hgb 14.2 Hct 43.5 MCV 92.2 MCH 30.0 MCHC 32.6 RDW 14.6 Plt Count 153 MPV 8.1 Neut % (Auto) 87.4 H Lymph % (Auto) 6.8 L [place] % (Auto) 2.9 Eos % (Auto) 2.4 Baso % (Auto) 0.5 Neut # (Auto) 7.9 H Lymph # (Auto) 0.6 L [place] # (Auto) 0.3 Eos # (Auto) 0.2 Baso # (Auto) 0.0 WBC Differential . Differential Comment Auto diff final PT 16.1 H INR 1.6 APTT 28.7 Sodium Potassium Chloride Carbon Dioxide Anion Gap BUN Creatinine Estimated GFR Random Glucose Lactic Acid Calcium Magnesium Total Bilirubin AST ALT Alkaline Phosphatase Total Creatine Kinase 74 Troponin I Less than 0.02 L B-Natriuretic Peptide Total Protein Albumin Urine Color Urine Clarity Urine pH Ur Specific [place] Urine Protein Urine Glucose (UA) Urine Ketones Urine Occult Blood Urine Nitrate Urine Bilirubin Urine Urobilinogen Ur Leukocyte Esterase Urine RBC Urine WBC Ur Squamous Epith Cells Urine Bacteria Micro UA Comment Ur Microscopic Review Urine Culture Comments Digoxin 03/08/18 03/08/18 03/08/18 09:00 09:00 09:00 WBC RBC Hgb Hct MCV MCH MCHC RDW Plt Count MPV Neut % (Auto) Lymph % (Auto) [place] % (Auto) Eos % (Auto) Baso % (Auto) Neut # (Auto) Lymph # (Auto) [place] # (Auto) Eos # (Auto) Baso # (Auto) WBC Differential Differential Comment PT INR APTT Sodium 140 Potassium 4.8 Chloride 106 Carbon Dioxide 27.9 Anion Gap 6 BUN 13 Creatinine 0.68 Estimated GFR 83 L Random Glucose 149 H Lactic Acid 2.0 Calcium 8.1 L Magnesium 1.8 Total Bilirubin 0.8 AST 29 ALT 19 Alkaline Phosphatase 123 H Total Creatine Kinase Troponin I B-Natriuretic Peptide 122 H Total Protein 6.5 Albumin 2.8 L Urine Color Urine Clarity Urine pH Ur Specific [place] Urine Protein Urine Glucose (UA) Urine Ketones Urine Occult Blood Urine Nitrate Urine Bilirubin Urine Urobilinogen Ur Leukocyte Esterase Urine RBC Urine WBC Ur Squamous Epith Cells Urine Bacteria Micro UA Comment Ur Microscopic Review Urine Culture Comments Digoxin 03/08/18 03/08/18 09:11 22:05 WBC RBC Hgb Hct MCV MCH MCHC RDW Plt Count MPV Neut % (Auto) Lymph % (Auto) [place] % (Auto) Eos % (Auto) Baso % (Auto) Neut # (Auto) Lymph # (Auto) [place] # (Auto) Eos # (Auto) Baso # (Auto) WBC Differential Differential Comment PT INR APTT Sodium Potassium Chloride Carbon Dioxide Anion Gap BUN Creatinine Estimated GFR Random Glucose Lactic Acid Calcium Magnesium Total Bilirubin AST ALT Alkaline Phosphatase Total Creatine Kinase Troponin I B-Natriuretic Peptide Total Protein Albumin Urine Color Yellow Urine Clarity Hazy H Urine pH 7.0 Ur Specific [place] 1.010 Urine Protein Negative Urine Glucose (UA) Negative Urine Ketones Trace H Urine Occult Blood Small H Urine Nitrate Positive H Urine Bilirubin Negative Urine Urobilinogen Less than 2 Ur Leukocyte Esterase Moderate H Urine RBC 3 Urine WBC 37 H Ur Squamous Epith Cells 1 Urine Bacteria Moderate H Micro UA Comment Culture indicated Ur Microscopic Review Not Reportable Urine Culture Comments Culture indicated Digoxin 0.8 Microbiology 03/08/18 09:00 Blood - Peripheral Anaerobic Blood Culture - Preliminary gram positive cocci 03/08/18 09:00 Blood - Peripheral Anaerobic Blood Culture - Preliminary gram positive cocci 03/08/18 09:13 Nasal Wash Influenza Types A,B Antigen - Final Negative for FLU A and B antigen Infection due to influenza A or B cannot be ruled out since the antigen present in the sample may be below the detection limit of the test. - Imaging Impressions Chest X-Ray 03/08/18 09:00 CONCLUSION: 1. Mild bibasilar and right perihilar atelectatic changes/scarring. Otherwise, no acute infiltrate. 2. Compensated cardiomegaly. 3. Stable degenerative changes of the dorsal spine with transpedicular fixation of the thoracolumbar junction. Assessment and Plan - Plan Ms. Bernstein is a pleasant 82 year old female who presents to the ED for an evaluation for altered mental status. Patient resides at [facility]. Patient was alert, oriented x 3 by the time ED provider assessed patient, she was alert, oriented x 3. Sepsis (Temp > 103F, Resp rate 24, suspected infection cellulitis as well as possible UTI). Acute right lower extremity cellulitis -Cover with Ceftriaxone 2g Qday. -Continued erythema to lateral aspect of right leg as well as right mid- calf. Monitor for improvement. No purulence noted. Probable bronchitis or early pneumonia Hypoxia with need for supplemental O2 suspect secondary to above -Continue Ceftriaxone but also start Azithromycin. -DuoNeb PRN Q4hrs while awake -Patient complaint of cough, will add Mucinex. -Wean O2 as needed, currently on 3.5 L nasal cannula. Does not use oxygen at home. Abnormal UA rule out UTI -UA positive for nitrates, leukocyte esterase and white blood cells. Urine culture pending. Follow. -Patient was started on Ceftriaxone, will continue. Await culture growth. Probable Atrial fibrillation Hyperlipidemia Probable congestive heart failure, likely systolic -Started on Metoprolol tartrate 25mg BID with holding parameters. Continue. -Started on Cardizem 30mg QID. Consider switching to Long acting Cardizem upon discharge. -Patient is on Warfarin for anticoagulation. INR 1.6. -Patient may benefit from Apixaban instead of Warfarin. Apixaban 2.5mg BID maybe an appropriate dose. -Continue statin. -Will start Torsemide 10mg Qday. Full code. Lovenox. Code Status: Full code Discussed Condition With: Patient Discharge Planning: Awaiting clinical improvement, still on IV antibiotics and supplemental O2.
[2018-03-09] MEDS: Metoprolol Tartrate 25 MG Tablet PO SCH ×2 (10:02→22:23)
[2018-03-09] MEDS: Azithromycin 250 MG Tablet PO SCH (10:02)
[2018-03-09] MEDS: dilTIAZem 30 MG Tablet PO SCH ×4 (10:02→22:24)
[2018-03-09] MEDS: Enoxaparin Inj 40 MG/0.4 ML Syringe SQ SCH (13:06)
[2018-03-09] MEDS ORDERED: Digoxin 125 MCG Tablet PO SCH (16:30)
[2018-03-09] MEDS ORDERED: Gabapentin 300 MG Capsule PO SCH (18:00)
[2018-03-09] MEDS ORDERED: dilTIAZem 30 MG Tablet PO SCH (18:00)
[2018-03-09] MEDS: Baclofen 10 MG Tablet PO SCH (22:22)
[2018-03-10 08:28] LABS: INR 1.2 Ratio; Prothrombin Time 12.1 sec (9.8-11.6)
[2018-03-10] MEDS: Metoprolol Tartrate 25 MG Tablet PO SCH ×2 (08:48→21:39)
[2018-03-10] MEDS: Baclofen 10 MG Tablet PO SCH ×2 (08:48→21:39)
[2018-03-10] MEDS: dilTIAZem 30 MG Tablet PO SCH (08:49)
[2018-03-10] MEDS: Azithromycin 250 MG Tablet PO SCH (08:49)
--- NOTE | 2018-03-10 08:55 | P.PNIM ---
Subjective Interval history: Follow-up pneumonia, UTI, cellulitis. Patient seen and examined, lying in bed comfortably no apparent distress. Patient is on room air breathing comfortably. No chest pain. Patient urine growing ESBL positive as well as E. coli. Blood cultures pending. Afebrile overnight. Vital signs stable. No acute events. Await culture growth, continue antibiotics. Physical Exam Vital signs: Vital Signs 03/09/18 09:09 03/09/18 12:00 03/09/18 13:16 Temperature 97.7 F Pulse Rate 97 H 75 Respiratory Rate 18 20 Blood Pressure 146/73 H Pulse Oximetry 94 L 96 03/09/18 15:52 03/09/18 19:30 03/09/18 20:00 Temperature 98.1 F 96.5 F L Pulse Rate 84 78 Respiratory Rate 18 20 Blood Pressure 138/65 139/63 Pulse Oximetry 100 94 L 98 03/10/18 00:00 03/10/18 04:00 03/10/18 08:00 Temperature 96.5 F L 96.5 F L 96.9 F L Pulse Rate 62 62 78 Respiratory Rate 18 18 16 Blood Pressure 144/62 H 144/62 H 160/69 H Pulse Oximetry 98 98 98 03/10/18 08:07 03/10/18 08:40 Temperature Pulse Rate Respiratory Rate Blood Pressure Pulse Oximetry 98 94 L Intake & Output 03/09/18 03/10/18 03/10/18 18:59 06:59 18:59 Intake Total 340 / 340 Output Total 700 / 700 Balance -700 / -700 340 / 340 Weight 69 kg Intake: IV 100 / 100 Rocephin Inj 2,000 MG In NS Inj 100 / 100 100 ML @ 200 mls/hr IV.SIG Q24H [facility] Rx#:[id number] Oral 240 / 240 Output: Urine 700 / 700 Other: Date of Last Bowel Movement 03/09/18 # Bowel Movements 1 Narrative: GENERAL: This is a well-nourished, well-developed patient, in no apparent distress. Lying in bed comfortably SKIN: Lower part of right lower ext has mild erythema and trace edema. However, RLE lateral thigh area has improving erythema. No purulence. Left sided BKA noted. HEAD: Atraumatic. Normocephalic. No temporal or scalp tenderness. EYES: Pupils equal round and reactive. No injection or drainage. ENT: Nose without bleeding, purulent drainage or septal hematoma. Airway patent. NECK: Trachea midline. No lymphadenopathy. Supple, nontender, no meningeal signs. CARDIOVASCULAR: Regular rate and rhythm without murmurs, gallops, or rubs. No JVD. RESPIRATORY: Clear to auscultation. Breath sounds equal bilaterally. No wheezes , rales, or rhonchi. GASTROINTESTINAL: Abdomen soft, non-tender, nondistended. No guarding. MUSCULOSKELETAL: Extremities without clubbing, cyanosis. RLE thigh area erythema , NEUROLOGICAL: Awake and alert. Cranial nerves II through XII intact. No focal neurological deficits. Normal speech. Results - Labs CBC & Chem 7: 03/08/18 09:00 03/08/18 09:00 Laboratory Results - last 24 hr 03/08/18 03/10/18 09:11 06:25 PT 12.1 H INR 1.2 Urine Color Yellow Urine Clarity Hazy H Urine pH 7.0 Ur Specific [place] 1.010 Urine Protein Negative Urine Glucose (UA) Negative Urine Ketones Trace H Urine Occult Blood Small H Urine Nitrate Positive H Urine Bilirubin Negative Urine Urobilinogen Less than 2 Ur Leukocyte Esterase Moderate H Urine RBC 3 Urine WBC 37 H Ur Squamous Epith Cells 1 Urine Bacteria Moderate H Micro UA Comment Culture indicated Urine Culture Comments Culture indicated Microbiology 03/08/18 09:11 Clean Catch Urine Urine Culture - Final Escherichia coli ESBL positive 03/08/18 09:00 Blood - Peripheral Aerobic Blood Culture - Preliminary No growth in 1 day 03/08/18 09:00 Blood - Peripheral Anaerobic Blood Culture - Preliminary Group B beta Strep 03/08/18 09:00 Blood - Peripheral Aerobic Blood Culture - Preliminary No growth in 1 day 03/08/18 09:00 Blood - Peripheral Anaerobic Blood Culture - Preliminary gram positive cocci Assessment and Plan - Plan Ms. Bernstein is a pleasant 82 year old female who presents to the ED for an evaluation for altered mental status. Patient resides at [facility]. Patient was alert, oriented x 3 by the time ED provider assessed patient, she was alert, oriented x 3. Sepsis (Initially Temp > 103F, Resp rate 24, suspected infection cellulitis as well as possible UTI and pneumonia). Acute right lower extremity cellulitis Urinary tract infection with ESBL positive and E. coli Health-care associated pneumonia, from a jail Hypoxia with need for supplemental O2 suspect secondary to probable pneumonia, improved. -UA positive for nitrates, leukocyte esterase and white blood cells. Urine culture showing ESBL positive and E. coli. -On Zosyn for ESBL + urine. Continue. -Improving erythema to lateral aspect of right leg as well as right mid- calf. No purulence noted. -DuoNeb PRN Q4hrs while awake -Patient complaint of cough, continue Mucinex. -Oxygen weaned, tolerating room air. -ID consulted, input and recommendations pending. History of atrial fibrillation Hyperlipidemia History of congestive heart failure, likely systolic -Started on Metoprolol tartrate 25mg BID with holding parameters. Continue. -Started on Cardizem 30mg QID, switched to long acting Cardizem 120 mg daily. -Patient is on Warfarin for anticoagulation. INR 1.2. -Patient may benefit from Apixaban instead of Warfarin. Started on Apixaban 2.5mg BID. -Continue statin. -Continue on Torsemide 10mg Qday. -Obtain ECHO. Full code. Apixaban. Discharge Planning: Awaiting clinical improvement and cultures. ID consulted.
[2018-03-10] MEDS ORDERED: Atenolol 25 MG Tablet PO SCH (09:00)
[2018-03-10] MEDS ORDERED: Warfarin Consult Pharmacy OTHER PRN (09:47)
[2018-03-10] MEDS: dilTIAZem CD 120 MG Capsule PO SCH (12:28)
[2018-03-10] MEDS: Piperacil/Tazo 4.5 GM Premix 4.5 GM/100 ML BAG IV.SIG SCH ×2 (13:22→17:52)
--- NOTE | 2018-03-10 17:47 | P.CONID ---
History of Present Illness Service: ID Consult date: 03/10/18 Requesting Physician: La Nena Mcmanus Reason for Consult: POSITIVE BLOOD CULTURES / ESBL UTI Primary Care Provider: UNKNOWN RESIDENT AT [facility] Chief Complaint: ALTERED MENTAL STATUS History of Present Illness: 82 yr old female admitted with altered mental status from the [facility] facility where she resides. She states she has been in routine health with no sob , cough , nvd, falls, or back pain. She was found to have strep beta in the blood in all 4 bottles and UTI with ecoli esbl. The patient tells me about a week ago she was found to have redness over the right hip inwhich she states is tender a swollen. She has a history of left BKA about 5 yrs ago and only stands to transfer. She does not recall any pain. She was told yesterday by her doctor that her right leg was red. She is incontinent. Review of Systems Constitutional: Reports chills ( she woke up freezing with rigors.), Reports fatigue, Reports fever(s), Reports weakness Eyes: Denies bulging eyes, Denies floaters Ears, Nose, Mouth, and Throat: Denies nasal congestion, Denies neck lump, Denies post nasal drip, Denies sore throat Cardiovascular: Denies chest pain, Denies foot swelling, Denies leg swelling, Denies radiating jaw, neck or arm pain Respiratory: Denies change in phlegm color, Denies shortness of breath Gastrointestinal: Denies abdominal pain, Denies constant urge to pass stool, Denies cramping, Denies feeling full early, Denies incontinent of stools, Denies loose stools, Denies nausea, Denies pain with swallowing, Denies vomiting blood Genitourinary: Denies painful urination Skin/Breast: Reports redness (right hip and leg), Reports rash (right hip ), Denies acne Neurologic: Reports abnormal hearing, Reports confusion Psychiatric: Denies abnormal sleep pattern Endocrine: Denies cold intolerance Hematologic/Lymphatic: Denies easy bleeding Allergic/Immunologic: Denies throat swelling PMFSH - History History Provided By: Patient - Medical History Medical History: Medical History (Last Reviewed 03/09/18 @ 11:32 by Raquel Estevez) CHF (congestive heart failure) COPD (chronic obstructive pulmonary disease) Falls Hypertension Weakness - Surgical History Surgical History: Surgical History (Last Reviewed 03/09/18 @ 11:32 by Raquel Estevez) Status post below knee amputation of left lower extremity - Tobacco History Second Hand Smoke Exposure: No Tobacco Use In Past 30 Days: No Smoking Status: Former smoker - Alcohol History How Often Do You Have a Drink Containing Alcohol: Never - Substance Use History Substance History: No History of Abuse - Travel History Recent Travel in the [place] Within the Last 8 Weeks: No Recent Travel Out of the Country Within the Last 8 Weeks: No - Immunization History Tetanus Immunization: Unsure Hx Influenza Vaccine This Season: Yes Medications and Allergies Active Medications: Active Medications Acetaminophen (Tylenol) 650 mg PO Q4H PRN PRN Reason: Headache, fever, pain 1-4 Al Hydroxide/Mg Hydroxide (Milk Of Magnino Liq) 30 ml PO Q12H PRN PRN Reason: Mild Constipation Albuterol (Duoneb Neb (Prn)) 1 ampul NEB Q4HR NEB PRN PRN Reason: DYSPNEA Last Admin: 03/09/18 13:14 Dose: 1 ampul Apixaban (Eliquis) 2.5 mg PO BID [facility] Last Admin: 03/10/18 12:28 Dose: 2.5 mg Baclofen (Lioresal) 10 mg PO BID [facility] Last Admin: 03/10/18 08:48 Dose: 10 mg Bisacodyl (Dulcolax Supp) 10 mg RECTAL DAILY PRN PRN Reason: SEVERE CONSITIPATION Cetirizine HCl (Zyrtec) 10 mg PO DAILY [facility] Last Admin: 03/10/18 08:48 Dose: 10 mg Digoxin (Lanoxin) 125 mcg PO DAILY [facility] Last Admin: 03/09/18 18:16 Dose: Not Given Diltiazem HCl (Cardizem Cd 24hr) 120 mg PO DAILY [facility] Last Admin: 03/10/18 12:28 Dose: 120 mg Duloxetine HCl (Cymbalta) 20 mg PO BID [facility] Last Admin: 03/10/18 08:48 Dose: 20 mg Fentanyl (Duragesic 25 Mcg Patch.72hr) 1 patch T-DERMAL Q72H [facility] Last Admin: 03/10/18 17:32 Dose: 1 patch Piperacillin/Tazobactam/Dextrose (Zosyn 4.5 Gm Premix) 4.5 gm in 100 mls @ 200 mls/hr IV.SIG Q6H [facility] Last Infusion: 10/21/18 14:08 Dose: Infused Lactulose (Lactulose Liq) 30 ml PO DAILY PRN PRN Reason: SEVERE CONSITIPATION Metoprolol Tartrate (Lopressor) 25 mg PO BID [facility] Last Admin: 03/10/18 08:48 Dose: 25 mg Ondansetron HCl (Zofran Inj) 4 mg IV.PUSH Q6H PRN PRN Reason: NAUSEA OR VOMITING Patch Removal (Remove Old Patch) 0 each T-DERMAL Q72H [facility] Pravastatin Sodium (Pravachol) 20 mg PO BID [facility] Last Admin: 03/10/18 08:48 Dose: 20 mg Sennosides (Senokot) 17.2 mg PO Q12H PRN PRN Reason: Moderate Constipation Torsemide (Demadex) 10 mg PO DAILY [facility] Last Admin: 03/10/18 08:48 Dose: 10 mg Allergies Allergy/AdvReac Type Severity Reaction Status Date / Time vancomycin Allergy Intermediate Itching Unverified 04/28/17 12:25 cefepime Allergy Severe Rash Uncoded 05/13/15 12:40 *MDRO Multi-Drug Resistant AdvReac Unknown Uncoded 04/28/17 12:25 Organism Home Medications Medication Instructions Recorded Confirmed Type atenolol 25 mg PO DAILY 03/08/18 03/08/18 History baclofen 10 mg PO BID 03/08/18 03/08/18 History cetirizine 10 mg PO DAILY 03/08/18 03/08/18 History digoxin 0.125 mg PO DAILY 03/08/18 03/08/18 History diltiazem HCl [Cardizem] 30 mg PO TID 03/08/18 03/08/18 History duloxetine 20 mg PO BID 03/08/18 03/08/18 History fentanyl 1 patch TRANSDERMAL Q72H 03/08/18 03/08/18 History furosemide [Lasix] 03/08/18 History gabapentin 600 mg PO TID 03/08/18 03/08/18 History lovastatin 20 mg PO BID 03/08/18 03/08/18 History warfarin 1 mg PO DAILY 03/08/18 03/08/18 History warfarin 2 mg PO [id number] 03/08/18 03/08/18 History Exam Vital signs: Vital Signs 03/09/18 19:30 03/09/18 20:00 03/10/18 00:00 Temperature 96.5 F L 96.5 F L Pulse Rate 78 62 Respiratory Rate 20 18 Blood Pressure 139/63 144/62 H Pulse Oximetry 94 L 98 98 03/10/18 04:00 03/10/18 08:00 03/10/18 08:07 Temperature 96.5 F L 96.9 F L Pulse Rate 62 78 Respiratory Rate 18 16 Blood Pressure 144/62 H 160/69 H Pulse Oximetry 98 98 98 03/10/18 08:40 03/10/18 11:03 03/10/18 12:00 Temperature 97.0 F L Pulse Rate 76 Respiratory Rate 16 Blood Pressure 155/68 H Pulse Oximetry 94 L 93 L 98 03/10/18 15:52 Temperature 97.0 F L Pulse Rate 76 Respiratory Rate 16 Blood Pressure 156/67 H Pulse Oximetry 98 Intake & Output 03/09/18 03/10/18 03/10/18 18:59 06:59 18:59 Intake Total 340 / 340 100 / 100 Output Total 700 / 700 Balance -700 / -700 340 / 340 100 / 100 Weight 69 kg Intake: IV 100 / 100 100 / 100 Zosyn 4.5 GM Premix 4.5 gm In 100 / 100 100 ml @ 200 mls/hr IV.SIG Q6H [facility] Rx#:[id number] Rocephin Inj 2,000 MG In NS Inj 100 / 100 100 ML @ 200 mls/hr IV.SIG Q24H [facility] Rx#:[id number] Oral 240 / 240 Output: Urine 700 / 700 Other: Date of Last Bowel Movement 03/09/18 # Bowel Movements 1 1 - Constitutional no acute distress - Routine HEENT Exam Head: Present: normocephalic Eye: Present: PERRL ENT: Present: mucous membranes moist - Routine Neck Exam Present: supple - Routine Chest/Breast/Axilla Exam Chest wall: Absent: tenderness - Routine Respiratory Exam Present: CTA bilaterally - Routine Cardiovascular Exam Present: S1, S2 - Routine Abdominal Exam Present: soft, normoactive bowel sounds. Absent: rebound - Routine Skin Exam Present: intact, warm - Routine Neurological Exam Present: alert, oriented X3 Results - Labs CBC & Chem 7: 03/08/18 09:00 03/08/18 09:00 Labs: Laboratory Results - last 24 hr 03/10/18 06:25 PT 12.1 H INR 1.2 Assessment and Plan (1) Bacteremia Status: Acute Code(s): R78.81 - Bacteremia (2) Cellulitis Status: Acute Code(s): L03.90 - Cellulitis, unspecified (3) Acute UTI Status: Acute Code(s): N39.0 - Urinary tract infection, site not specified - Plan Will check a right hip ct r/o abscess Will treat with zosyn for now and fu will repeat bc may need an echo will monitor and fu will need repeat bc / uac
--- NOTE | 2018-03-10 21:38 | ECHRPT ---
Indication: HEART FAILURE CONCLUSIONS The left ventricular systolic function is normal with an estimated ejection fraction in the range of 55-60%. Normal left ventricular size. Wall thickness is normal. No regional wall motion abnormalities are present. Diffuse calcification of the aortic valve. Mild thickening of the tricuspid valve leaflets. There is trace tricuspid valve regurgitation. The estimated pulmonary arterial pressure is 45 mmHg. BP: / HR: Rhythm: Sinus MEASUREMENTS (Male / Female) Normal Values Technical Quality:Fair 2D ECHO LV Diastolic Diameter PLAX 4.5 cm 4.2 - 5.9 / 3.9 - 5.3 cm LV Systolic Diameter PLAX 3.4 cm IVS Diastolic Thickness 1.0 cm 0.6 - 1.0 / 0.6 - 0.9 cm LVPW Diastolic Thickness 1.1 cm 0.6 - 1.0 / 0.6 - 0.9 cm LV Relative Wall Thickness 0.5 LVOT Diameter 1.5 cm LA Systolic Diameter LX 3.8 cm 3.0 - 4.0 / 2.7 - 3.8 cm M-MODE Aortic Root Diameter MM 1.8 cm DOPPLER AV Peak Velocity 111.0 cm/s AV Peak Gradient 4.9 mmHg LVOT Peak Velocity 107.0 cm/s LVOT Peak Gradient 4.6 mmHg AV Area Cont Eq pk 1.7 cm MV Area PHT 3.1 cm LV E' Lateral Velocity 8.5 cm/s LV E' Septal Velocity 8.0 cm/s TR Peak Velocity 296.0 cm/s TR Peak Gradient 35.0 mmHg Right Atrial Pressure 10.0 mmHg Pulmonary Artery Systolic Pressu 45.0 mmHg Right Ventricular Systolic Press 45.0 mmHg PV Peak Velocity 115.0 cm/s PV Peak Gradient 5.3 mmHg FINDINGS LEFT VENTRICLE The left ventricular systolic function is normal with an estimated ejection fraction in the range of 55-60%. Normal left ventricular size. Wall thickness is normal. No regional wall motion abnormalities are present. RIGHT VENTRICLE Normal right ventricular size and systolic function. LEFT ATRIUM The left atrial size is normal. RIGHT ATRIUM The right atrial size is normal. ATRIAL SEPTUM Normal atrial septal thickness without atrial level shunting by limited color doppler interrogation. AORTA The aortic root and proximal ascending aorta are normal in size on limited imaging. MITRAL VALVE Structurally normal mitral valve. No mitral valve stenosis or regurgitation. AORTIC VALVE Trileaflet aortic valve. Diffuse calcification of the aortic valve. No aortic valve stenosis. TRICUSPID VALVE Mild thickening of the tricuspid valve leaflets. There is trace tricuspid valve regurgitation. The estimated pulmonary arterial pressure is 45 mmHg. PULMONARY VALVE No pulmonary valve regurgitation or stenosis. VESSELS The inferior vena cava is normal in size. PERICARDIUM No pericardial effusion. Dean Roberts MD, FACC (Electronically Signed) Final Date:10 March 2018 21:37
[2018-03-11] MEDS: Piperacil/Tazo 4.5 GM Premix 4.5 GM/100 ML BAG IV.SIG SCH ×5 (00:36→23:58)
[2018-03-11 05:35] LABS: Baso % (Auto) 0.4 % (0.0-2.0); Eos # (Auto) 0.4 th/mm3 (0.0-0.4); Eos % (Auto) 5.8 % (0.0-4.0); Hematocrit 40.6 % (35.0-46.0); Hemoglobin 13.1 gm/dL (11.6-15.3); Lymph # (Auto) 0.9 th/mm3 (1.0-4.8); Lymph % (Auto) 15.3 % (9.0-44.0); Mean Corpuscular HGB Conc 32.3 % (32.0-36.0); Mean Corpuscular Hemoglobin 29.4 pg (27.0-34.0); Mono # (Auto) 0.6 th/mm3 (0.0-0.9); Mono % (Auto) 9.2 % (0.0-8.0); Neut # (Auto) 4.2 th/mm3 (1.8-7.7); Neut % (Auto) 69.3 % (16.0-70.0); Platelet Count 209 th/mm3 (150-450); Red Blood Count 4.46 mil/mm3 (4.00-5.30); Red Cell Distribution Width 13.3 % (11.6-17.2); White Blood Count 6.1 th/mm3 (4.0-11.0)
[2018-03-11 05:50] LABS: Chloride 104 meq/L (98-107); Potassium 3.3 meq/L (3.5-5.1); Sodium 143 meq/L (136-145)
[2018-03-11 05:52] LABS: INR 1.5 Ratio; Prothrombin Time 14.8 sec (9.8-11.6)
[2018-03-11 05:54] LABS: Calcium 8.8 mg/dL (8.5-10.1)
[2018-03-11 05:55] LABS: Anion Gap 7 meq/L (5-15); Blood Urea Nitrogen 13 mg/dL (7-18); Carbon Dioxide 31.7 meq/L (21.0-32.0); Glucose,Random 124 mg/dL (74-106)
[2018-03-11 05:58] LABS: Glomerular Filtration Rate Greater Than 89 mL/min (>89)
--- NOTE | 2018-03-11 07:38 | P.PNIM ---
Subjective Interval history: Follow-up ESBL positive UTI, cellulitis. Patient seen and examined, sitting up in bed comfortably in no apparent distress. On room air with adequate saturations. Denies any shortness of breath or chest pain. Repeat blood cultures negative to date, will continue to follow. Afebrile overnight. Vital signs stable. Tolerating p.o. intake without any nausea or vomiting. Continue PT, encourage increase in activity. ID following, awaiting repeat urine culture and CT. Physical Exam Vital signs: Vital Signs 03/10/18 08:00 03/10/18 08:07 03/10/18 08:40 Temperature 96.9 F L Pulse Rate 78 Respiratory Rate 16 Blood Pressure 160/69 H Pulse Oximetry 98 98 94 L 03/10/18 11:03 03/10/18 12:00 03/10/18 15:52 Temperature 97.0 F L 97.0 F L Pulse Rate 76 76 Respiratory Rate 16 16 Blood Pressure 155/68 H 156/67 H Pulse Oximetry 93 L 98 98 03/10/18 19:30 03/10/18 20:00 03/11/18 00:00 Temperature 98.1 F 96.6 F L Pulse Rate 76 72 Respiratory Rate 20 20 Blood Pressure 188/82 H 143/65 H Pulse Oximetry 96 97 95 Intake & Output 03/10/18 03/11/18 03/11/18 18:59 06:59 18:59 Intake Total 440 / 440 440 / 440 Output Total 600 / 600 Balance 440 / 440 -160 / -160 Weight 69.1 kg Intake: IV 200 / 200 200 / 200 Zosyn 4.5 GM Premix 4.5 gm In 200 / 200 200 / 200 100 ml @ 200 mls/hr IV.SIG Q6H [facility] Rx#:[id number] Oral 240 / 240 240 / 240 Output: Urine 600 / 600 Other: # Bowel Movements 1 Narrative: GENERAL: This is a well-nourished, well-developed patient, in no apparent distress. Lying in bed comfortably SKIN: Lower part of right lower ext has mild erythema and trace edema, improving significantly today. However, RLE lateral thigh area has improving erythema. No purulence. Left sided BKA noted. HEAD: Atraumatic. Normocephalic. No temporal or scalp tenderness. EYES: Pupils equal round and reactive. No injection or drainage. ENT: Nose without bleeding, purulent drainage or septal hematoma. Airway patent. NECK: Trachea midline. No lymphadenopathy. Supple, nontender, no meningeal signs. CARDIOVASCULAR: Regular rate and rhythm without murmurs, gallops, or rubs. No JVD. RESPIRATORY: Clear to auscultation. Breath sounds equal bilaterally. No wheezes , rales, or rhonchi. GASTROINTESTINAL: Abdomen soft, non-tender, nondistended. No guarding. MUSCULOSKELETAL: Extremities without clubbing, cyanosis. RLE thigh area erythema , NEUROLOGICAL: Awake and alert. Cranial nerves II through XII intact. No focal neurological deficits. Normal speech. Results - Labs CBC & Chem 7: 03/11/18 04:50 03/11/18 04:50 Laboratory Results - last 24 hr 03/10/18 03/11/18 03/11/18 06:25 04:50 04:50 CBC w Diff Auto diff final WBC 6.1 RBC 4.46 Hgb 13.1 Hct 40.6 MCV 91.0 MCH 29.4 MCHC 32.3 RDW 13.3 Plt Count 209 D MPV 8.0 Neut % (Auto) 69.3 Lymph % (Auto) 15.3 [place] % (Auto) 9.2 H Eos % (Auto) 5.8 H Baso % (Auto) 0.4 Neut # (Auto) 4.2 Lymph # (Auto) 0.9 L [place] # (Auto) 0.6 Eos # (Auto) 0.4 Baso # (Auto) 0.0 WBC Differential . Differential Comment . PT 12.1 H INR 1.2 Sodium 143 Potassium 3.3 L Chloride 104 Carbon Dioxide 31.7 Anion Gap 7 BUN 13 Creatinine 0.60 Estimated GFR Greater than 89 Random Glucose 124 H Calcium 8.8 03/11/18 04:50 CBC w Diff WBC RBC Hgb Hct MCV MCH MCHC RDW Plt Count MPV Neut % (Auto) Lymph % (Auto) [place] % (Auto) Eos % (Auto) Baso % (Auto) Neut # (Auto) Lymph # (Auto) [place] # (Auto) Eos # (Auto) Baso # (Auto) WBC Differential Differential Comment PT 14.8 H INR 1.5 Sodium Potassium Chloride Carbon Dioxide Anion Gap BUN Creatinine Estimated GFR Random Glucose Calcium Microbiology 03/08/18 09:00 Blood - Peripheral Aerobic Blood Culture - Preliminary No growth in 2 days 03/08/18 09:00 Blood - Peripheral Anaerobic Blood Culture - Preliminary Group B beta Strep 03/08/18 09:00 Blood - Peripheral Aerobic Blood Culture - Preliminary No growth in 2 days 03/08/18 09:00 Blood - Peripheral Anaerobic Blood Culture - Preliminary Group B beta Strep 03/09/18 17:29 Blood - Peripheral Aerobic Blood Culture - Preliminary No growth in 1 day 03/09/18 17:29 Blood - Peripheral Anaerobic Blood Culture - Preliminary No growth in 1 day 03/09/18 17:24 Blood - Peripheral Aerobic Blood Culture - Preliminary No growth in 1 day 03/09/18 17:24 Blood - Peripheral Anaerobic Blood Culture - Preliminary No growth in 1 day 03/08/18 09:11 Clean Catch Urine Urine Culture - Final Escherichia coli ESBL positive Assessment and Plan - Plan Ms. Bernstein is a pleasant 82 year old female who presents to the ED for an evaluation for altered mental status. Patient resides at [facility]. Patient was alert, oriented x 3 by the time ED provider assessed patient, she was alert, oriented x 3. Sepsis (Initially Temp > 103F, Resp rate 24, suspected infection cellulitis as well as possible UTI and HACP). Acute right lower extremity cellulitis, improving Urinary tract infection with ESBL positive and E. coli Health-care associated pneumonia, from a longterm Hypoxia with need for supplemental O2 suspect secondary to probable pneumonia, improved. -UA positive for nitrates, leukocyte esterase and white blood cells. Urine culture showing ESBL positive and E. coli. -On Zosyn for ESBL + urine and cellulitis. Continue. Repeat urine culture pending. Follow. -Improving erythema to lateral aspect of right leg as well as right mid-calf. No purulence noted. -DuoNeb PRN Q4hrs while awake. Patient complaint of cough, continue Mucinex. -Oxygen weaned, tolerating room air. -ID consulted, input and recommendations appreciated. UA repeated today, follow. Follow repeat blood cultures. -Right hip CT done today reviewed, abscess ruled out. -Encourage increased activity. PT is following. Patient resides at [place], [place] disposition is to return to facility when stable. History of atrial fibrillation Hyperlipidemia History of congestive heart failure, compensated diastolic -Continue Metoprolol tartrate 25mg BID and Cardizem ER 120 mg PO daily with holding parameters. -Patient was on Warfarin for anticoagulation on presentation. Patient may benefit from Apixaban instead of Warfarin. Started on Apixaban 2.5mg BID. DC Coumadin. -Continue statin. -Home Lasix switched to Torsemide 10mg Qday. Continue. Monitor intake and output , equal fluid balance noted. -Echocardiogram done and reviewed showing adequate EF with mild pulmonary hypertension, PA P 45. History of peripheral neuropathy: Patient is stating she has pain overnight secondary to chronic peripheral neuropathy. Restarted home gabapentin. Continue baclofen. Supportive care. Full code. Apixaban. Discharge Planning: Awaiting repeat UA and blood cultures. Per ID, if negative tomorrow may be discharged with Augmentin.
[2018-03-11] MEDS: Metoprolol Tartrate 25 MG Tablet PO SCH ×2 (08:23→21:21)
[2018-03-11] MEDS: Baclofen 10 MG Tablet PO SCH ×2 (08:24→21:21)
[2018-03-11] MEDS: dilTIAZem CD 120 MG Capsule PO SCH (08:24)
[2018-03-11] MEDS: Gabapentin 300 MG Capsule PO SCH ×3 (08:36→17:58)
--- NOTE | 2018-03-11 09:40 | CT ---
EXAM DATE: 03/11/2018 8:19 AM EDT AGE/SEX: 82 years / Female INDICATIONS: Cellulitis. CLINICAL DATA: This is the patient's initial encounter. Patient reports that signs and symptoms have been present for 2 days and indicates a pain score of 5/10. MEDICAL/SURGICAL HISTORY: Congestive heart failure. Chronic obstructive pulmonary disease. Hypert ension. . Left extremity below the knee amputation. RADIATION DOSE: 21.66 CTDI (mGy) COMPARISON: [facility] – [place]EL[place]/O CONTRAST, 07/10/2015. . TECHNIQUE: Multiple contiguous axial images were acquired using a multirow detector CT scanner withou t contrast and after intravenous administration of 85 ml Omnipaque 350 (iohexol) nonionic water-solu ble contrast as a single exam dose. Multiplanar reconstruction was performed in the sagittal and cor onal planes. Using automated exposure control and adjustment of the mA and/or kV according to patien t size, radiation dose was kept as low as reasonably achievable to obtain optimal diagnostic quality images. DICOM format image data is available electronically for review and comparison. FINDINGS: Bones: The bony structures are grossly intact. 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 There is no evidence of a joint effusion. The osteoarthritis is about the same compared to the prior examination. Joints: There is prominent osteoarthritis at both hip joints. This is not significant change compare d to the prior examination. Soft Tissues: There is some nonspecific soft tissue changes in the subcutaneous fat adjacent to the right hip. No loculated fluid collections are seen to suggest a drainable abscess. There is some foca l soft tissue skin changes along the medial right buttocks. Other: There is a fibroid uterus present which is unchanged compared to the prior examination. A few stable nonspecific mildly prominent inguinal lymph nodes are seen bilaterally, right greater than le ft. This is not significant change from 2016. The bowel gas pattern is unremarkable. CONCLUSION: 1. Prominent osteoarthritis is noted involving the right hip. This is not significant change compare d to the prior study. 2. Nonspecific soft tissue changes are seen in the subcutaneous soft tissues adjacent to the right h ip. No loculated fluid collections are demonstrated. 3. Focal soft tissue changes adjacent to the skin along the right medial buttocks. This could repres ent a cutaneous ulcer. Recommend correlation with direct visualization. Electronically signed by: Enrique Reyes MD 03/11/2018 9:39 AM EDT
--- NOTE | 2018-03-11 09:41 | P.PNID ---
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 Objective Vital Signs 03/10/18 11:03 03/10/18 12:00 03/10/18 15:52 Temperature 97.0 F L 97.0 F L Pulse Rate 76 76 Respiratory Rate 16 16 Blood Pressure 155/68 H 156/67 H Pulse Oximetry 93 L 98 98 03/10/18 19:30 03/10/18 20:00 03/11/18 00:00 Temperature 98.1 F 96.6 F L Pulse Rate 76 72 Respiratory Rate 20 20 Blood Pressure 188/82 H 143/65 H Pulse Oximetry 96 97 95 03/11/18 08:00 03/11/18 08:14 Temperature 97.1 F L Pulse Rate 76 Respiratory Rate 21 Blood Pressure 195/78 H Pulse Oximetry 95 94 L Intake & Output 03/10/18 03/11/18 03/11/18 18:59 06:59 18:59 Intake Total 440 / 440 440 / 440 240 / 240 Output Total 600 / 600 200 / 200 Balance 440 / 440 -160 / -160 40 / 40 Weight 69.1 kg Intake: IV 200 / 200 200 / 200 Zosyn 4.5 GM Premix 4.5 gm In 200 / 200 200 / 200 100 ml @ 200 mls/hr IV.SIG Q6H [facility] Rx#:[id number] Oral 240 / 240 240 / 240 240 / 240 Output: Urine 600 / 600 200 / 200 Other: # Bowel Movements 1 03/08/18 09:00 Blood - Peripheral Aerobic Blood Culture - Preliminary No growth in 2 days 03/08/18 09:00 Blood - Peripheral Anaerobic Blood Culture - Preliminary Group B beta Strep 03/08/18 09:00 Blood - Peripheral Aerobic Blood Culture - Preliminary No growth in 2 days 03/08/18 09:00 Blood - Peripheral Anaerobic Blood Culture - Preliminary Group B beta Strep 03/09/18 17:29 Blood - Peripheral Aerobic Blood Culture - Preliminary No growth in 1 day 03/09/18 17:29 Blood - Peripheral Anaerobic Blood Culture - Preliminary No growth in 1 day 03/09/18 17:24 Blood - Peripheral Aerobic Blood Culture - Preliminary No growth in 1 day 03/09/18 17:24 Blood - Peripheral Anaerobic Blood Culture - Preliminary No growth in 1 day 03/08/18 09:11 Clean Catch Urine Urine Culture - Final Escherichia coli ESBL positive 03/08/18 09:13 Nasal Wash Influenza Types A,B Antigen - Final Negative for FLU A and B antigen Infection due to influenza A or B cannot be ruled out since the antigen present in the sample may be below the detection limit of the test. Lab - Hematology Results 03/11/18 04:50 CBC w Diff Auto diff final WBC 6.1 RBC 4.46 Hgb 13.1 Hct 40.6 MCV 91.0 MCH 29.4 MCHC 32.3 RDW 13.3 Plt Count 209 D MPV 8.0 Neut % (Auto) 69.3 Lymph % (Auto) 15.3 [place] % (Auto) 9.2 H Eos % (Auto) 5.8 H Baso % (Auto) 0.4 Neut # (Auto) 4.2 Lymph # (Auto) 0.9 L [place] # (Auto) 0.6 Eos # (Auto) 0.4 Baso # (Auto) 0.0 WBC Differential . Differential Comment . Lab - Chemistry Results 03/11/18 04:50 Sodium 143 Potassium 3.3 L Chloride 104 Carbon Dioxide 31.7 Anion Gap 7 BUN 13 Creatinine 0.60 Estimated GFR Greater than 89 Random Glucose 124 H Calcium 8.8 Imaging: ITS Impressions Chest X-Ray 03/08/18 09:00 CONCLUSION: 1. Mild bibasilar and right perihilar atelectatic changes/scarring. Otherwise, no acute infiltrate. 2. Compensated cardiomegaly. 3. Stable degenerative changes of the dorsal spine with transpedicular fixation of the thoracolumbar junction. Physical Exam: Alert, Od[place] x 3 Pallor No icterus Chest : Clear Heart Soft Syst murmur Abdomen : Soft BS present Rt hip some erythema Left BKA Assessment and Plan (1) Sepsis Status: Acute Code(s): A41.9 - Sepsis, unspecified organism (2) Cellulitis Status: Acute Code(s): L03.90 - Cellulitis, unspecified (3) Acute UTI Status: Acute Code(s): N39.0 - Urinary tract infection, site not specified (4) Bacteremia Status: Acute Code(s): R78.81 - Bacteremia - Plan CT hip pending result Follow repeat Blood cultures and Urine cultures Continue Zosyn If repeat cultures ok and CT with no deep infection then should be able to change to PO Augmentin (1) Sepsis Qualifiers: Sepsis type: sepsis due to unspecified organism Qualified Code(s): A41.9 - Sepsis, unspecified organism
--- NOTE | 2018-03-11 12:05 | P.DS ---
Date of admission: 03/08/18 10:59 Primary care physician: UNKNOWN Anticipated date of discharge: 03/12/18 Brief History from admission: Ms. Bernstein is a pleasant 82 year old female with probable history of Atrial fibrillation, hyperlipidemia, left sided BKA who presents to the ED due to altered mental status, fever. Patient is a resident of [facility]. By the time ED provider evaluated patient, she was alert, oriented x 3 and coherent. At the time of this interview (around noon on 03/08/2018), patient also was coherent. She denies any chest pain, cough, dyspnea. She reports some dysuria but no hematuria. She also reports some mild redness of her lower extremity especially around her thighs. She reports no orthopnea but reports some leg swelling. No changes bladder or bowel habits. PMH: Atrial fibrillation, COPD, Hypertension, hyperlipidemia PSH: Back surgery, left sided BKA Social history: No smoking or drinking. Family history: No family history of Alzheimer's or Parkinson's. DS: Diagnosis - Discharge Diagnosis (1) ESBL (extended spectrum beta-lactamase) producing bacteria infection Status: Acute (2) Sepsis Status: Acute (3) Cellulitis Status: Acute (4) Acute UTI Status: Acute (5) Bacteremia Status: Acute DS: Medications - Discharge Medications Prescriptions: apixaban [Eliquis] 2.5 mg PO BID 30 Days #60 tab diltiazem HCl 120 mg PO DAILY 30 Days #30 cap lisinopril 10 mg PO DAILY 30 Days #30 tab metoprolol tartrate 25 mg PO BID 30 Days #60 tab torsemide 10 mg PO DAILY 30 Days #60 tab DS: Summary Hospital Course: Ms. Bernstein is a pleasant 82 year old female who presents to the ED for an evaluation for altered mental status. Patient resides at [facility]. Patient met sepsis criteria upon admission with Temp > 103F, Resp rate 24 , suspected infection cellulitis as well as possible UTI and HACP. She also had hypoxia with need for supplemental O2. Initially HACP was suspected. She was found to have acute right lower extremity cellulitis and a UTI that was positive for ESBL and ecoli. UA positive for nitrates, leukocyte esterase and white blood cells. Urine culture showing ESBL positive and E. coli. Blood cultures were also positive initially with group B beta strep. Was placed on Zosyn and ID was consulted during hospitalization. A UA was repeated prior to DC as well as repeat BC were repeated and negative. Erythema improved on lower right extremity. Right hip CT done today reviewed, abscess ruled out. Oxygen was eventually weaned. DuoNeb PRN Q4hrs while awake. Patient complaint of cough , continue Mucinex. Patient has a history of atrial fibrillation, hyperlipidemia and CHF. Was started on Metoprolol tartrate 25mg BID and Cardizem ER 120 mg PO daily with holding parameters during hospitalization for tachycardia. She was also on Warfarin for anticoagulation on presentation. Patient may benefit from Apixaban instead of Warfarin. Started on Apixaban 2.5mg BID. DCd Coumadin. Was also continued on her home statin. Home Lasix switched to Torsemide 10mg Qday. Echocardiogram done and showing adequate EF with mild pulmonary hypertension, PAP 45. Will continue on diuretics. History of peripheral neuropathy, continued on home Baclofen and gabapentin. ABX per dc plan. - Time Spent with Patient Total time spent providing and/or coordinating discharge services: Greater than 30 minutes - Quality: VTE Deep Vein Thrombosis/Pulmonary Embolism Present on Admission: No Exam Vital signs: Vital Signs 03/10/18 12:00 03/10/18 15:52 03/10/18 19:30 Temperature 97.0 F L 97.0 F L Pulse Rate 76 76 Respiratory Rate 16 16 Blood Pressure 155/68 H 156/67 H Pulse Oximetry 98 98 96 03/10/18 20:00 03/11/18 00:00 03/11/18 08:00 Temperature 98.1 F 96.6 F L 97.1 F L Pulse Rate 76 72 76 Respiratory Rate 20 20 21 Blood Pressure 188/82 H 143/65 H 195/78 H Pulse Oximetry 97 95 95 03/11/18 08:14 Temperature Pulse Rate Respiratory Rate Blood Pressure Pulse Oximetry 94 L Intake & Output 03/10/18 03/11/18 03/11/18 18:59 06:59 18:59 Intake Total 440 / 440 440 / 440 240 / 240 Output Total 600 / 600 200 / 200 Balance 440 / 440 -160 / -160 40 / 40 Weight 69.1 kg Intake: IV 200 / 200 200 / 200 Zosyn 4.5 GM Premix 4.5 gm In 200 / 200 200 / 200 100 ml @ 200 mls/hr IV.SIG Q6H [facility] Rx#:[id number] Oral 240 / 240 240 / 240 240 / 240 Output: Urine 600 / 600 200 / 200 Other: # Bowel Movements 1 Narrative: GENERAL: This is a well-nourished, well-developed patient, in no apparent distress. Lying in bed comfortably SKIN: Lower part of right lower ext has mild erythema and trace edema, improving significantly today. However, RLE lateral thigh area has improving erythema. No purulence. Left sided BKA noted. HEAD: Atraumatic. Normocephalic. No temporal or scalp tenderness. EYES: Pupils equal round and reactive. No injection or drainage. ENT: Nose without bleeding, purulent drainage or septal hematoma. Airway patent. NECK: Trachea midline. No lymphadenopathy. Supple, nontender, no meningeal signs. CARDIOVASCULAR: Regular rate and rhythm without murmurs, gallops, or rubs. No JVD. RESPIRATORY: Clear to auscultation. Breath sounds equal bilaterally. No wheezes , rales, or rhonchi. GASTROINTESTINAL: Abdomen soft, non-tender, nondistended. No guarding. MUSCULOSKELETAL: Extremities without clubbing, cyanosis. RLE thigh area erythema , NEUROLOGICAL: Awake and alert. Cranial nerves II through XII intact. No focal neurological deficits. Normal speech. Results Procedures completed during hospitalization: See below. Labs on day of discharge: Labs from last 24 hours 03/11/18 03/11/18 03/11/18 04:50 04:50 04:50 CBC w Diff Auto diff final WBC 6.1 RBC 4.46 Hgb 13.1 Hct 40.6 MCV 91.0 MCH 29.4 MCHC 32.3 RDW 13.3 Plt Count 209 D MPV 8.0 Neut % (Auto) 69.3 Lymph % (Auto) 15.3 [place] % (Auto) 9.2 H Eos % (Auto) 5.8 H Baso % (Auto) 0.4 Neut # (Auto) 4.2 Lymph # (Auto) 0.9 L [place] # (Auto) 0.6 Eos # (Auto) 0.4 Baso # (Auto) 0.0 WBC Differential . Differential Comment . PT 14.8 H INR 1.5 Sodium 143 Potassium 3.3 L Chloride 104 Carbon Dioxide 31.7 Anion Gap 7 BUN 13 Creatinine 0.60 Estimated GFR Greater than 89 Random Glucose 124 H Calcium 8.8 Preliminary micro results at discharge 03/08/18 09:00 Aerobic Blood Culture - Preliminary Blood - Peripheral No growth in 3 days 03/08/18 09:00 Aerobic Blood Culture - Preliminary Blood - Peripheral No growth in 3 days 03/09/18 17:29 Aerobic Blood Culture - Preliminary Blood - Peripheral No growth in 2 days Anaerobic Blood Culture - Preliminary No growth in 2 days 03/09/18 17:24 Aerobic Blood Culture - Preliminary Blood - Peripheral No growth in 2 days Anaerobic Blood Culture - Preliminary No growth in 2 days - Impressions ITS Impressions Chest X-Ray 03/08/18 09:00 CONCLUSION: 1. Mild bibasilar and right perihilar atelectatic changes/scarring. Otherwise, no acute infiltrate. 2. Compensated cardiomegaly. 3. Stable degenerative changes of the dorsal spine with transpedicular fixation of the thoracolumbar junction. Hip CT 03/11/18 00:00 CONCLUSION: 1. Prominent osteoarthritis is noted involving the right hip. This is not significant change compared to the prior study. 2. Nonspecific soft tissue changes are seen in the subcutaneous soft tissues adjacent to the right hip. No loculated fluid collections are demonstrated. 3. Focal soft tissue changes adjacent to the skin along the right medial buttocks. This could represent a cutaneous ulcer. Recommend correlation with direct visualization. Discharge Plan - Discharge Disposition Patient Disposition: 01 Discharge Home - Discharge Condition Condition: Stable - Discharge Details Anticipated Discharge Date: 03/12/18 - Physicians Team Primary Care Provider: UNKNOWN, Attending Provider: Beverly Charles Other Providers: Emerita Self MD
[2018-03-11] MEDS: Lisinopril 10 MG Tablet PO SCH (12:20)
[2018-03-11 16:54] LABS: Bilirubin,Urine Negative (Negative); Clarity,Urine Clear (Clear); Color,Urine Yellow (Yellw/Straw); Glucose,Urine (UA) Negative (Negative); Leukocyte Esterase,Urine Negative (Negative); Nitrite,Urine Negative (Negative); PH,Urine 5.5 (5.0-8.5); Urobilinogen,Urine 0.2 mg/dL (Less than 2)
[2018-03-11 16:59] LABS: Bacteria,Urine Rare /hpf; RBC,Urine 0-3 /hpf (0-3); Squamous Epithelial Cell,Urine 0-5 /hpf (0-5); WBC,Urine 0-5 /hpf (0-5)
[2018-03-11 20:13] VITALS: RESP 18
[2018-03-12] MEDS: Piperacil/Tazo 4.5 GM Premix 4.5 GM/100 ML BAG IV.SIG SCH ×2 (06:18→12:01)
[2018-03-12 06:34] LABS: INR 1.5 Ratio; Prothrombin Time 15.4 sec (9.8-11.6)
[2018-03-12] MEDS: Gabapentin 300 MG Capsule PO SCH ×2 (08:04→12:00)
[2018-03-12] MEDS: Metoprolol Tartrate 25 MG Tablet PO SCH (08:05)
[2018-03-12] MEDS: Baclofen 10 MG Tablet PO SCH (08:05)
[2018-03-12] MEDS: dilTIAZem CD 120 MG Capsule PO SCH (08:06)
[2018-03-12] MEDS: Lisinopril 10 MG Tablet PO SCH (08:06)
--- NOTE | 2018-03-12 09:24 | P.PN ---
Subjective Interval history: 82-year-old female who is seen and examined today for follow-up on altered mental status, urinary tract infection, bacteremia. Patient is doing much better. She remains afebrile. Patient denies any new complaints. Vital signs remained stable. Physical Exam Vital signs: Vital Signs 03/11/18 12:00 03/11/18 16:00 03/11/18 20:00 Temperature 97.0 F L 97.0 F L 98.6 F Pulse Rate 70 83 87 Respiratory Rate 21 19 18 Blood Pressure 137/65 114/63 122/58 L Pulse Oximetry 96 95 94 L 03/12/18 00:00 03/12/18 08:53 Temperature 97.5 F L 97.7 F Pulse Rate 76 84 Respiratory Rate 18 18 Blood Pressure 134/61 129/61 Pulse Oximetry 93 L 94 L Intake & Output 03/11/18 03/12/18 03/12/18 18:59 06:59 18:59 Intake Total 800 / 800 945 / 945 100 / 100 Output Total 701 / 701 1100 / 1100 Balance 99 / 99 -155 / -155 100 / 100 Weight 78.2 kg Intake: IV 200 / 200 100 / 100 100 / 100 Zosyn 4.5 GM Premix 4.5 gm In 200 / 200 100 / 100 100 / 100 100 ml @ 200 mls/hr IV.SIG Q6H [facility] Rx#:[id number] Oral 600 / 600 845 / 845 Output: Urine 700 / 700 1100 / 1100 Stool Other: Date of Last Bowel Movement 03/11/18 Narrative: GENERAL: Well-developed, well-nourished, in no acute distress. alert and orientated HEENT: Head is normocephalic without any lesions or masses noted. Facial features are symmetric. Eyes: Extraocular muscles are intact. Conjunctivae were clear. NECK: Supple without any masses. Trachea midline no deviation. No JVD, CARDIAC: Regular rhythm, regular rate. S1/S2 are heard. No murmurs gallops or rubs. LUNGS: Clear to auscultation bilaterally. No wheeze, rhonchi or rales. No use of accessory muscles on inspiration or expiration. ABDOMEN: Soft, nontender. Nondistended. Bowel sounds heard in all 4 quadrants. No organomegaly or masses. Negative rebound, negative guarding EXTREMITIES: No edema, pulses are equal bilaterally. No cyanosis or clubbing. Left below the knee amputation NEUROLOGY: Mood and affect appear appropriate. Cranial nerves II through XII grossly intact. Moving all extremities, speech is clear Results - Labs CBC & Chem 7: 03/11/18 04:50 03/11/18 04:50 Laboratory Results - last 24 hr 03/11/18 03/12/18 16:45 05:00 PT 15.4 H INR 1.5 Urine Color Yellow Urine Clarity Clear Urine pH 5.5 Ur Specific [place] 1.020 Urine Protein Negative Urine Glucose (UA) Negative Urine Ketones Trace H Urine Occult Blood Trace Urine Nitrate Negative Urine Bilirubin Negative Urine Urobilinogen 0.2 Ur Leukocyte Esterase Negative Urine RBC 0-3 Urine WBC 0-5 Ur Squamous Epith Cells 0-5 Urine Bacteria Rare H Micro UA Comment Culture not ind Ur Microscopic Review Microscopic reviewed Urine Culture Comments Culture not ind Microbiology 03/08/18 09:00 Blood - Peripheral Aerobic Blood Culture - Preliminary No growth in 3 days 03/08/18 09:00 Blood - Peripheral Anaerobic Blood Culture - Final Group B beta Strep 03/08/18 09:00 Blood - Peripheral Aerobic Blood Culture - Preliminary No growth in 3 days 03/08/18 09:00 Blood - Peripheral Anaerobic Blood Culture - Final Group B beta Strep 03/09/18 17:29 Blood - Peripheral Aerobic Blood Culture - Preliminary No growth in 2 days 03/09/18 17:29 Blood - Peripheral Anaerobic Blood Culture - Preliminary No growth in 2 days 03/09/18 17:24 Blood - Peripheral Aerobic Blood Culture - Preliminary No growth in 2 days 03/09/18 17:24 Blood - Peripheral Anaerobic Blood Culture - Preliminary No growth in 2 days - Imaging Impressions Hip CT 03/11/18 00:00 CONCLUSION: 1. Prominent osteoarthritis is noted involving the right hip. This is not significant change compared to the prior study. 2. Nonspecific soft tissue changes are seen in the subcutaneous soft tissues adjacent to the right hip. No loculated fluid collections are demonstrated. 3. Focal soft tissue changes adjacent to the skin along the right medial buttocks. This could represent a cutaneous ulcer. Recommend correlation with direct visualization. - Procedures ECHOCARDIOGRAM CONCLUSIONS The left ventricular systolic function is normal with an estimated ejection fraction in the range of 55-60%. Normal left ventricular size. Wall thickness is normal. No regional wall motion abnormalities are present. Diffuse calcification of the aortic valve. Mild thickening of the tricuspid valve leaflets. There is trace tricuspid valve regurgitation. The estimated pulmonary arterial pressure is 45 mmHg. Assessment and Plan - Plan Altered mental status, resolved -Secondary to sepsis, urinary tract infection, cellulitis, bacteremia -Continue monitor neurological function Sepsis, resolved -Patient initially met criteria on presentation with febrile illness, cellulitis , urinary tract infection, tachypnea -Patient was initially started on empirical antibiotics -Patient was pancultured which did indicate significant urinary tract infection as well as bacteremia Bacteremia -Patient had positive blood cultures 2/ with group B beta strep -Patient currently on Zosyn -Infectious disease evaluated patient continue to follow, they indicate that if patient remains clinically stable, cultures are negative patient be discharged with Augmentin Urinary tract infection with ESBL positive E. coli -Infectious disease following the patient -Patient continued on Zosyn [facility] associated pneumonia with mild hypoxia -Patient no longer requiring O2 supplementation -Royalo lams -Mucinex -Continue antibiotics Atrial fibrillation -Patient continued on metoprolol 25 mg twice daily and Cardizem 120 mg p.o. daily -Patient was on Coumadin, however was changed to apixaban 2.5 mg twice daily Compensated diastolic congestive heart failure -Patient continued on home medications -Lasix was switched to torsemide 10 mg daily -Continue monitor input and output Hyperlipidemia -Statin was continued Peripheral neuropathy -Home medications have been continued DVT prevention -Patient is on apixaban Discharge Planning: Case management consulted for discharge planning to [facility]
[2018-03-12 12:38] VITALS: BP 121/57; PULSE 55; TEMP 98.1
[2018-03-12 14:41] VITALS: O2SAT 93
== END 2018-03-12 14:45 ==
LOC: NEPE 08:41 → NEDA 10:59 → PH3 18:07
PROVIDERS: ADMIT Internal Medicine; ATTEND Internal Medicine

== ENCOUNTER 2018-04-19 17:28 | Inpatient (IN) ==
--- NOTE | 2018-04-19 18:15 | ED ---
HPI General Chief complaint: Medical Clearance Stated complaint: Medical clearance Time Seen by Provider: 04/19/18 17:49 History of Present Illness HPI narrative: 82-year-old female with a history of hypertension, CHF, COPD, A. fib, dementia, neuropathy, status post left leg BKA is brought to the emergency department from her half-way facility for evaluation of altered mental status and hypotension. Per EMS report they were called by the half-way facility as she had a blood pressure of 80s over 60s at the half-way facility and is more confused than usual per the half-way. Per EMS her blood pressure and vitals have all been normal on route. The patient states that she is feeling fatigued and has basically been sleeping for the last 2 days. Otherwise she has no specific complaints. She denies any chest pain, shortness of breath, abdominal pain, nausea, vomiting, diarrhea. She is awake, alert and oriented to person, place, situation and year. Related Data Home Medications Medication Instructions Recorded Confirmed baclofen 10 mg PO BID 03/08/18 04/19/18 cetirizine 10 mg PO DAILY 03/08/18 04/19/18 duloxetine 20 mg PO BID 03/08/18 04/19/18 fentanyl 1 patch TRANSDERMAL Q72H 03/08/18 04/19/18 gabapentin [Neurontin] 600 mg PO TID 03/08/18 04/19/18 lovastatin 20 mg PO BID 03/08/18 04/19/18 albuterol sulfate 2.5 mg INHALATION QID 04/19/18 04/19/18 apixaban [Eliquis] 2.5 mg PO BID 04/19/18 04/19/18 atenolol 25 mg PO DAILY 04/19/18 04/19/18 budesonide-formoterol [Symbicort] 2 puff INHALATION BID 04/19/18 04/19/18 diltiazem HCl [DILT-XR] 120 mg PO DAILY 04/19/18 04/19/18 lisinopril 10 mg PO DAILY 04/19/18 04/19/18 melatonin 5 mg PO HS PRN 04/19/18 04/19/18 metoprolol tartrate 25 mg PO BID 04/19/18 04/19/18 tiotropium bromide [Spiriva with 1 cap INHALATION DAILY 04/19/18 04/19/18 HandiHaler] torsemide 10 mg PO DAILY 04/19/18 04/19/18 Allergies Allergy/AdvReac Type Severity Reaction Status Date / Time vancomycin Allergy Intermediate Itching Verified 04/19/18 21:25 cefepime Allergy Rash Verified 04/19/18 21:25 *MDRO Multi-Drug Resistant AdvReac Unknown Ulcers Uncoded 04/19/18 20:49 Organism Review of Systems ROS: all other systems reviewed are negative [facility] Medical History Medical History Afib (Acute) CHF (congestive heart failure) (Acute) COPD (chronic obstructive pulmonary disease) (Acute) Falls (Acute) Hypertension (Acute) MDRO (multiple drug resistant organisms) resistance (Acute ~04/19/18) Weakness (Acute) Surgical History Surgical History Status post below knee amputation of left lower extremity (Acute) Social History Social History Substance History: No History of Abuse Second Hand Smoke Exposure: No Smoking Status: Former smoker How Often Do You Have a Drink Containing Alcohol: Never Recent Travel in [facility] within the Last 8 Weeks: No Recent Out of Country Travel within the Last 8 Weeks: No Immunization History Tetanus Immunization: Unsure Exam Narrative Exam Narrative: GENERAL: Well-nourished and well-developed female patient in no acute distress who is nontoxic appearing. SKIN: Warm and dry. HEAD: Normocephalic and atraumatic. EYES: No injection, drainage, or hyphema noted. PERRLA. EOMI. ENT: No nasal drainage noted. Oropharynx is clear and the TMs are normal with good landmarks. NECK: Supple and the trachea is midline. CARDIOVASCULAR: Regular rate and rhythm. RESPIRATORY: Breath sounds are equal bilaterally with no accessory muscle use, wheezing, rhonchi, or crackles. GASTROINTESTINAL: Abdomen is soft, non-tender, and nondistended. MUSCULOSKELETAL: Status post left BKA. No obvious deformities, swelling, cyanosis, or ecchymosis is present throughout the upper and lower extremities. Patient has full range of motion without any signs of neurovascular compromise. Distal pulses are 2+ throughout. NEUROLOGICAL: Awake, alert, and oriented. Normal speech and gait. Cranial nerves are grossly intact. Course Initial Documented Vital Signs Temperature 98.9 F 04/19/18 17:33 Pulse Rate 86 04/19/18 17:33 Respiratory Rate 18 04/19/18 17:33 Blood Pressure 125/61 04/19/18 17:33 Pulse Oximetry 94 L 04/19/18 17:33 Last Documented Vital Signs Temperature 97.4 F L 04/22/18 11:48 Pulse Rate 60 04/22/18 11:48 Respiratory Rate 20 04/22/18 11:48 Blood Pressure 140/57 L 04/22/18 11:48 Pulse Oximetry 96 04/22/18 11:48 Medical Decision Making MDM Narrative Medical decision making narrative: 82-year-old female is brought to the emergency department from her fdc facility for evaluation of altered mental status and hypotension per report of the nursing facility. Patient is afebrile, vital signs are stable here in the emergency department. Patient's mental status is appropriate, she does not seem confused or altered. Will check labs and imaging. Chest x-ray is negative CBC is unremarkable. CMP shows acute kidney injury with creatinine 1.39, BUN 31, GFR 36. Her creatinine has doubled since previous admission last month. Urinalysis shows small occult blood, large leukocyte esterase, 9 red blood cells , 154 white blood cells, many white blood cell clumps, few yeast. Head CT negative for any acute abnormalities. Patient had recent admission with UTI with E. coli ESBL positive with multiple resistances - reviewed the susceptible antibiotics and therefore patient administered doxycycline since she did have a sensitivity to tetracycline. Patient administered 500 cc IV bolus. She will be admitted for acute kidney injury and UTI. I discussed this with Dr. High [facility] who accepts patient for admission. Medical Screen Exam Complete: Yes Emergency Medical Condition: Yes Lab Data Result diagrams: 04/21/18 09:14 04/21/18 09:14 Lab Results 04/19/18 04/19/18 04/19/18 Range/Units 18:18 18:18 19:35 WBC 7.1 (4.0-11.0) th/mm3 RBC 4.26 (4.00-5.30) mil/mm3 Hgb 13.1 (11.6-15.3) gm/dL Hct 39.2 (35.0-46.0) % MCV 92.1 (80.0-100.0) fL MCH 30.7 (27.0-34.0) pg MCHC 33.3 (32.0-36.0) % RDW 14.4 (11.6-17.2) % Plt Count 197 (150-450) th/mm3 MPV 9.1 (7.0-11.0) fL Neut % (Auto) 62.8 (16.0-70.0) % Lymph % (Auto) 20.9 (9.0-44.0) % [place] % (Auto) 10.0 H (0.0-8.0) % Eos % (Auto) 5.6 H (0.0-4.0) % Baso % (Auto) 0.7 (0.0-2.0) % Neut # (Auto) 4.5 (1.8-7.7) th/mm3 Lymph # (Auto) 1.5 (1.0-4.8) th/mm3 [place] # (Auto) 0.7 (0.0-0.9) th/mm3 Eos # (Auto) 0.4 (0.0-0.4) th/mm3 Baso # (Auto) 0.0 (0.0-0.2) th/mm3 WBC Differential . Differential Comment Auto diff final Sodium 142 (136-145) meq/L Potassium 4.7 (3.5-5.1) meq/L Chloride 110 H (98-107) meq/L Carbon Dioxide 27.8 (21.0-32.0) meq/L Anion Gap 4 L (5-15) meq/L BUN 31 H (7-18) mg/dL Creatinine 1.39 H (0.50-1.00) mg/dL Estimated GFR 36 L (>89) mL/min POC Glucose (68-110) mg/dl Random Glucose 120 H (74-106) mg/dL Calcium 8.9 (8.5-10.1) mg/dL Magnesium 2.2 (1.5-2.5) mg/dL Total Bilirubin 0.5 (0.2-1.0) mg/dL AST 20 (15-37) U/L ALT 16 (10-53) U/L Alkaline Phosphatase 115 (45-117) U/L Troponin I Less than 0.02 L (0.02-0.05) ng/mL Total Protein 6.8 (6.4-8.2) g/dL Albumin 3.2 L (3.4-5.0) g/dL Urine Color Yellow (Yellw/Straw) Urine Clarity Turbid H (Clear) Urine pH 5.0 (5.0-8.5) Ur Specific [place] 1.011 (1.002-1.035) Urine Protein Negative (Neg-Trace) mg/dL Urine Glucose (UA) Negative (Negative) mg/dL Urine Ketones Negative (Negative) mg/dL Urine Occult Blood Small H (Negative) Urine Nitrate Negative (Negative) Urine Bilirubin Negative (Negative) Urine Urobilinogen Less than 2 (Less than 2) mg/dL Ur Leukocyte Esterase Large H (Negative) Urine RBC 9 H (0-3) /hpf Urine WBC 154 H (0-5) /hpf Urine WBC Clumps Many H (None) Hyaline Casts 14 (0-3) /lpf Urine Yeast Few H (None) /hpf Micro UA Comment Cath-culture ind Ur Microscopic Review Not Reportable Urine Culture Comments Cath-cult indicated 04/19/18 04/20/18 04/20/18 Range/Units 23:10 07:39 07:39 WBC 5.3 (4.0-11.0) th/mm3 RBC 4.28 (4.00-5.30) mil/mm3 Hgb 12.8 (11.6-15.3) gm/dL Hct 39.9 (35.0-46.0) % MCV 93.3 (80.0-100.0) fL MCH 29.9 (27.0-34.0) pg MCHC 32.0 (32.0-36.0) % RDW 14.8 (11.6-17.2) % Plt Count 157 (150-450) th/mm3 MPV 9.5 (7.0-11.0) fL Neut % (Auto) 56.1 (16.0-70.0) % Lymph % (Auto) 26.4 (9.0-44.0) % [place] % (Auto) 10.2 H (0.0-8.0) % Eos % (Auto) 6.5 H (0.0-4.0) % Baso % (Auto) 0.8 (0.0-2.0) % Neut # (Auto) 3.0 (1.8-7.7) th/mm3 Lymph # (Auto) 1.4 (1.0-4.8) th/mm3 [place] # (Auto) 0.5 (0.0-0.9) th/mm3 Eos # (Auto) 0.3 (0.0-0.4) th/mm3 Baso # (Auto) 0.0 (0.0-0.2) th/mm3 WBC Differential . Differential Comment Auto diff final Sodium 143 (136-145) meq/L Potassium 5.3 H (3.5-5.1) meq/L Chloride 113 H (98-107) meq/L Carbon Dioxide 25.4 (21.0-32.0) meq/L Anion Gap 5 (5-15) meq/L BUN 23 H (7-18) mg/dL Creatinine 0.93 (0.50-1.00) mg/dL Estimated GFR 58 L (>89) mL/min POC Glucose 130 H (68-110) mg/dl Random Glucose 82 (74-106) mg/dL Calcium 8.8 (8.5-10.1) mg/dL Magnesium (1.5-2.5) mg/dL Total Bilirubin 0.7 (0.2-1.0) mg/dL AST 28 (15-37) U/L ALT 16 (10-53) U/L Alkaline Phosphatase 94 (45-117) U/L Troponin I (0.02-0.05) ng/mL Total Protein 6.1 L D (6.4-8.2) g/dL Albumin 2.7 L (3.4-5.0) g/dL Urine Color (Yellw/Straw) Urine Clarity (Clear) Urine pH (5.0-8.5) Ur Specific [place] (1.002-1.035) Urine Protein (Neg-Trace) mg/dL Urine Glucose (UA) (Negative) mg/dL Urine Ketones (Negative) mg/dL Urine Occult Blood (Negative) Urine Nitrate (Negative) Urine Bilirubin (Negative) Urine Urobilinogen (Less than 2) mg/dL Ur Leukocyte Esterase (Negative) Urine RBC (0-3) /hpf Urine WBC (0-5) /hpf Urine WBC Clumps (None) Hyaline Casts (0-3) /lpf Urine Yeast (None) /hpf Micro UA Comment Ur Microscopic Review Urine Culture Comments 04/21/18 04/21/18 Range/Units 09:14 09:14 WBC 5.9 (4.0-11.0) th/mm3 RBC 4.23 (4.00-5.30) mil/mm3 Hgb 12.9 (11.6-15.3) gm/dL Hct 38.5 (35.0-46.0) % MCV 90.8 (80.0-100.0) fL MCH 30.5 (27.0-34.0) pg MCHC 33.6 (32.0-36.0) % RDW 14.1 (11.6-17.2) % Plt Count 172 (150-450) th/mm3 MPV 8.8 (7.0-11.0) fL Neut % (Auto) (16.0-70.0) % Lymph % (Auto) (9.0-44.0) % [place] % (Auto) (0.0-8.0) % Eos % (Auto) (0.0-4.0) % Baso % (Auto) (0.0-2.0) % Neut # (Auto) (1.8-7.7) th/mm3 Lymph # (Auto) (1.0-4.8) th/mm3 [place] # (Auto) (0.0-0.9) th/mm3 Eos # (Auto) (0.0-0.4) th/mm3 Baso # (Auto) (0.0-0.2) th/mm3 WBC Differential Differential Comment Sodium 144 (136-145) meq/L Potassium 3.9 D (3.5-5.1) meq/L Chloride 113 H (98-107) meq/L Carbon Dioxide 26.3 (21.0-32.0) meq/L Anion Gap 5 (5-15) meq/L BUN 14 (7-18) mg/dL Creatinine 0.70 (0.50-1.00) mg/dL Estimated GFR 80 L (>89) mL/min POC Glucose (68-110) mg/dl Random Glucose 118 H (74-106) mg/dL Calcium 8.8 (8.5-10.1) mg/dL Magnesium (1.5-2.5) mg/dL Total Bilirubin (0.2-1.0) mg/dL AST (15-37) U/L ALT (10-53) U/L Alkaline Phosphatase (45-117) U/L Troponin I (0.02-0.05) ng/mL Total Protein (6.4-8.2) g/dL Albumin (3.4-5.0) g/dL Urine Color (Yellw/Straw) Urine Clarity (Clear) Urine pH (5.0-8.5) Ur Specific [place] (1.002-1.035) Urine Protein (Neg-Trace) mg/dL Urine Glucose (UA) (Negative) mg/dL Urine Ketones (Negative) mg/dL Urine Occult Blood (Negative) Urine Nitrate (Negative) Urine Bilirubin (Negative) Urine Urobilinogen (Less than 2) mg/dL Ur Leukocyte Esterase (Negative) Urine RBC (0-3) /hpf Urine WBC (0-5) /hpf Urine WBC Clumps (None) Hyaline Casts (0-3) /lpf Urine Yeast (None) /hpf Micro UA Comment Ur Microscopic Review Urine Culture Comments Imaging Data Radiologist's impression: Chest X-Ray 04/19/18 18:13 CONCLUSION: Stable appearance with no acute cardiopulmonary disease. There is no evidence of pneumonia. Head CT 04/19/18 18:13 CONCLUSION: 1. Suboptimal examination with motion artifact. No evidence of acute hemorrhage or mass effect. 2. Chronic sinusitis again noted involving the sphenoid sinuses. . Discharge Plan Discharge Disposition Patient Disposition: 30 Still Patient Discharge Details Diagnosis: MANDY (acute kidney injury), Acute UTI Physicians Team ED Provider: Nya Solorio ED Midlevel Provider: Caitlin Candelario Primary Care Provider: Primary Care Beronicai,Jazmin Attending Provider: Jose Roque Other Providers: Karon Bautista Status ED Status: Left Department Discharge Information Discharge Date/Time: 04/19/18 23:18
[2018-04-19 18:31] LABS: Baso % (Auto) 0.7 % (0.0-2.0); Eos # (Auto) 0.4 th/mm3 (0.0-0.4); Eos % (Auto) 5.6 % (0.0-4.0); Hematocrit 39.2 % (35.0-46.0); Hemoglobin 13.1 gm/dL (11.6-15.3); Lymph # (Auto) 1.5 th/mm3 (1.0-4.8); Lymph % (Auto) 20.9 % (9.0-44.0); Mean Corpuscular HGB Conc 33.3 % (32.0-36.0); Mean Corpuscular Hemoglobin 30.7 pg (27.0-34.0); Mean Corpuscular Volume 92.1 fL (80.0-100.0); Mean Platelet Volume 9.1 fL (7.0-11.0); Mono # (Auto) 0.7 th/mm3 (0.0-0.9); Neut # (Auto) 4.5 th/mm3 (1.8-7.7); Neut % (Auto) 62.8 % (16.0-70.0); Platelet Count 197 th/mm3 (150-450); Red Blood Count 4.26 mil/mm3 (4.00-5.30); Red Cell Distribution Width 14.4 % (11.6-17.2); White Blood Count 7.1 th/mm3 (4.0-11.0)
--- NOTE | 2018-04-19 18:31 | XR ---
EXAM DATE: 04/19/2018 6:26 PM EST AGE/SEX: 82 years / Female INDICATIONS: Cough. CLINICAL DATA: This is the patient's initial encounter. Patient reports that signs and symptoms have been present for 1 day and indicates a pain score of 0/10. MEDICAL/SURGICAL HISTORY: Hypertension. None. [place] [facility] [place]. . FINDINGS: A single AP view of the chest demonstrates the lungs to be symmetrically aerated without evidence of mass, infiltrate or effusion. The heart size remains prominent with no perihilar edema. Osseous stru ctures are stable in appearance. Postoperative changes are again noted involving the lower thoracic a nd lumbar spine with Elida rods. Sclerotic changes are again noted in the aorta. Multiple overly ing retrocardiac region leads are present. CONCLUSION: Stable appearance with no acute cardiopulmonary disease. There is no evidence of pneumonia. Electronically signed by: Cuco Kearney MD 04/19/2018 6:29 PM EST
[2018-04-19 19:01] LABS: Alanine Aminotransferase 16 U/L (10-53); Albumin 3.2 g/dL (3.4-5.0); Anion Gap 4 meq/L (5-15); Aspartate Aminotransferase 20 U/L (15-37); Blood Urea Nitrogen 31 mg/dL (7-18); Calcium 8.9 mg/dL (8.5-10.1); Carbon Dioxide 27.8 meq/L (21.0-32.0); Chloride 110 meq/L (98-107); Glomerular Filtration Rate 36 mL/min (>89); Glucose,Random 120 mg/dL (74-106); Magnesium 2.2 mg/dL (1.5-2.5); Potassium 4.7 meq/L (3.5-5.1); Sodium 142 meq/L (136-145)
[2018-04-19 19:05] LABS: Alkaline Phosphatase 115 U/L (45-117); Total Protein 6.8 g/dL (6.4-8.2)
--- NOTE | 2018-04-19 19:31 | CT ---
EXAM DATE: 04/19/2018 7:27 PM EST AGE/SEX: 82 years / Female INDICATIONS: Altered mental status; patient is hypotensive. CLINICAL DATA: This is the patient's initial encounter. Patient reports that signs and symptoms have been present for 1 day and indicates a pain score of 0/10. MEDICAL/SURGICAL HISTORY: Congestive heart failure. Chronic obstructive pulmonary disease. Hypert ension. . AKA left leg. RADIATION DOSE: 36.76 CTDI (mGy) COMPARISON: [facility] – [place], [place] BRAIN W/O CONTRAST, 04/28/2017. . TECHNIQUE: CT of the head without contrast. Using automated exposure control and adjustment of the mA and/or kV according to patient size, radiation dose was kept as low as reasonably achievable to ob tain optimal diagnostic quality images. DICOM format image data is available electronically for revi ew and comparison. FINDINGS: This study is degraded by motion artifact. Cerebrum: The ventricles are normal for age. No evidence of midline shift, mass lesion, hemorrhage or acute infarction. No extraaxial fluid collections are seen. Posterior Fossa: The cerebellum and brainstem are intact. The 4th ventricle is midline. The cerebe llopontine angle is unremarkable. Extracranial: The visualized portion of the orbits is intact. Sinusitis is again noted involving the sphenoid sinuses. Skull: The calvaria is intact. No evidence of skull fracture. CONCLUSION: 1. Suboptimal examination with motion artifact. No evidence of acute hemorrhage or mass effect. 2. Chronic sinusitis again noted involving the sphenoid sinuses. . Electronically signed by: Cuco Kearney MD 04/19/2018 7:30 PM EST
[2018-04-19 20:08] LABS: Bilirubin,Urine Negative (Negative); Clarity,Urine Turbid (Clear); Color,Urine Yellow (Yellw/Straw); Glucose,Urine (UA) Negative (Negative); Hyaline Casts,Urine 14 /lpf (0-3); Leukocyte Esterase,Urine Large (Negative); Nitrite,Urine Negative (Negative); Specific Gravity,Urine 1.011 (1.002-1.035)
[2018-04-19] MEDS ORDERED: Sodium Chlor 0.9% Inj 500 ML IV.SIG SCH (21:00)
[2018-04-19] MEDS ORDERED: Melatonin 5 MG Tablet PO PRN (21:04)
[2018-04-19] MEDS ORDERED: Acetaminophen 325 MG Tablet PO PRN (21:10)
[2018-04-19] MEDS ORDERED: Bisacodyl 10 MG Supp RECTAL PRN (21:10)
--- NOTE | 2018-04-19 21:13 | P.HPIM ---
History of Present Illness Primary Care Physician: No Primary Care Physician History of Present Illness: This is an 82-year-old female with a PMH of HTN, Hyperlipidemia, CHF (Echo 03/10 with EF 55-60%), A. fib on Eliquis, h/o Left BKA and Dementia who was sent to the ER from [facility] for AMS and hypotension. Recent admit 03/08- for UTI/Sepsis. Upon EMS arrival, BP 80's systolic, s/p IVF w/ improvement. Pt poor historian, but reports increased lethargy for the last few days. Unsure if she's had fever/chills. On arrival, BP 125/61, HR 86, O2 sat 94% on RA, Afebrile. CBC unremarkable. Creatinine 1.39, previously 0.60 on 03/11/2018. UA positive for UTI. CT Head with no acute findings. CXR with stable appearance. Per review of UTI from 03/08, +ESBL E Coli, s/p Doxycycline in ER. - Diagnosis (1) Encephalopathy (2) MANDY (acute kidney injury) (3) UTI (urinary tract infection) (4) CHF (congestive heart failure) (5) Afib Review of Systems PAST FAMILY HISTORY: Reviewed. No h/o DM or CAD All other systems reviewed negative except as stated in HPI [facility] - History History Provided By: Patient, Simonizer / EMT - Medical History Medical History: Medical History (Last Updated 04/19/18 @ 18:13 by Debi Hopkins RN) Afib CHF (congestive heart failure) COPD (chronic obstructive pulmonary disease) Falls Hypertension MDRO (multiple drug resistant organisms) resistance Onset Date: ~03/08/18 Weakness - Surgical History Surgical History: Surgical History (Last Reviewed 04/19/18 @ 18:13 by Debi Hopkins RN) Status post below knee amputation of left lower extremity - Tobacco History Second Hand Smoke Exposure: No Smoking Status: Never smoker - Alcohol History How Often Do You Have a Drink Containing Alcohol: Never - Substance Use History Substance History: No History of Abuse - Travel History Recent Travel in the [facility] Within the Last 8 Weeks: No Recent Travel Out of the Country Within the Last 8 Weeks: No - Immunization History Tetanus Immunization: Unsure Medications and Allergies Active Medications: Active Medications Acetaminophen (Tylenol) 650 mg PO Q4H PRN PRN Reason: Temp > 100.4 Al Hydroxide/Mg Hydroxide (Milk Of Magnesia Liq) 30 ml PO Q12H PRN PRN Reason: Mild Constipation Apixaban (Eliquis) 2.5 mg PO BID [facility] Atenolol (Tenormin) 25 mg PO DAILY [facility] Baclofen (Lioresal) 10 mg PO BID [facility] Bisacodyl (Dulcolax Supp) 10 mg RECTAL DAILY PRN PRN Reason: SEVERE CONSITIPATION Budesonide/Formoterol Fumarate (Symbicort 160/4.5 Mcg Inh) 2 puff INH BID [facility] Duloxetine HCl (Cymbalta) 20 mg PO BID [facility] Fentanyl (Duragesic 25 Mcg Patch.72hr) 1 patch T-DERMAL Q72H [facility] Sodium Chloride (Ns Inj) 500 mls @ 1,000 mls/hr IV.SIG BOLUS [facility] Stop: 04/19/18 21:29 Last Admin: 04/19/18 20:48 Dose: 1,000 mls/hr Ertapenem 1,000 mg/ Sodium (Chloride) 100 mls @ 200 mls/hr IV.SIG Q24H [facility] Sodium Chloride (Ns Inj) 1,000 mls @ 100 mls/hr IV.CONT .Q10H [facility] Lactulose (Lactulose Liq) 30 ml PO DAILY PRN PRN Reason: SEVERE CONSITIPATION Melatonin (Melatonin) 5 mg PO HS PRN PRN Reason: Insomnia Non-Formulary Medication (Diltiazem Hcl [Dilt-Xr]) 120 mg PO DAILY [facility] Non-Formulary Medication (Lovastatin [Lovastatin]) 20 mg PO BID [facility] Non-Formulary Medication (Gabapentin [Neurontin]) 600 mg PO TID [facility] Ondansetron HCl (Zofran Inj) 4 mg IV.PUSH Q6H PRN PRN Reason: NAUSEA OR VOMITING Senna/Docusate Sodium (Gardenia-Colace) 1 tab PO BID [facility] Sennosides (Senokot) 17.2 mg PO Q12H PRN PRN Reason: Moderate Constipation Sodium Chloride (Ns Flush) 2 ml IV.FLUSH PRN PRN PRN Reason: FLUSH AFTER USING IV ACCESS Sodium Chloride (Ns Flush) 2 ml IV.FLUSH BID [facility] Sodium Chloride (Ns Flush) 2 ml IV.FLUSH PRN PRN PRN Reason: FLUSH AFTER USING IV ACCESS Tiotropium [place] (Spiriva 18 Mcg Inh) mcg INH DAILY [facility] Allergies Allergy/AdvReac Type Severity Reaction Status Date / Time vancomycin Allergy Intermediate Itching Verified 04/19/18 21:25 cefepime Allergy Rash Verified 04/19/18 21:25 *MDRO Multi-Drug Resistant AdvReac Unknown Ulcers Uncoded 04/19/18 20:49 Organism Home Medications Medication Instructions Recorded Confirmed Type baclofen 10 mg PO BID 03/08/18 04/19/18 History cetirizine 10 mg PO DAILY 03/08/18 04/19/18 History duloxetine 20 mg PO BID 03/08/18 04/19/18 History fentanyl 1 patch TRANSDERMAL Q72H 03/08/18 04/19/18 History gabapentin [Neurontin] 600 mg PO TID 03/08/18 04/19/18 History lovastatin 20 mg PO BID 03/08/18 04/19/18 History albuterol sulfate 2.5 mg INHALATION QID 04/19/18 04/19/18 History apixaban [Eliquis] 2.5 mg PO BID 04/19/18 04/19/18 History atenolol 25 mg PO DAILY 04/19/18 04/19/18 History budesonide-formoterol [Symbicort] 2 puff INHALATION BID 04/19/18 04/19/18 History diltiazem HCl [DILT-XR] 120 mg PO DAILY 04/19/18 04/19/18 History lisinopril 10 mg PO DAILY 04/19/18 04/19/18 History melatonin 5 mg PO HS PRN 04/19/18 04/19/18 History metoprolol tartrate 25 mg PO BID 04/19/18 04/19/18 History tiotropium bromide [Spiriva with 1 cap INHALATION DAILY 04/19/18 04/19/18 History HandiHaler] torsemide 10 mg PO DAILY 04/19/18 04/19/18 History Exam Vital signs: Vital Signs 04/19/18 17:33 04/19/18 18:12 04/19/18 18:42 Temperature 98.9 F Pulse Rate 86 84 Respiratory Rate 18 22 Blood Pressure 125/61 Pulse Oximetry 94 L 96 04/19/18 20:50 Temperature Pulse Rate 85 Respiratory Rate 20 Blood Pressure 130/62 Pulse Oximetry 96 Intake & Output 04/19/18 04/19/18 04/20/18 06:59 18:59 06:59 Weight 180 kg Other: # Voids 1 # Incontinent Voids 1 # Urine Diapers 1 Narrative: PE: GENERAL: Pleasant elderly white female in no acute distress. SKIN: Focused skin assessment warm and dry. HEENT: PERRLA, EOMI. No scleral icterus or conjunctival pallor. No lid lag or facial droop. CARDIOVASCULAR: Regular rate and rhythm. No obvious murmurs to auscultation. No chest tenderness to palpation. RESPIRATORY: No obvious rhonchi or wheezing. Clear to auscultation. Breath sounds equal bilaterally. GASTROINTESTINAL: Abdomen soft, non-tender, nondistended. BS normal. MUSCULOSKELETAL: Extremities without clubbing, cyanosis, or edema. No obvious deformities. Left BKA NEUROLOGICAL: Awake, alert. No focal neurologic deficits. Moving both upper and lower extremities spontaneously. PSYCHIATRIC: Appropriate mood and affect. Insight and judgment normal. Results - Labs CBC & Chem 7: 04/19/18 18:18 04/19/18 18:18 Labs: Short CBC 04/19/18 Range/Units 18:18 WBC 7.1 (4.0-11.0) th/mm3 Hgb 13.1 (11.6-15.3) gm/dL Hct 39.2 (35.0-46.0) % Plt Count 197 (150-450) th/mm3 BMP 04/19/18 18:18 Sodium 142 Potassium 4.7 Chloride 110 H Carbon Dioxide 27.8 BUN 31 H Creatinine 1.39 H Calcium 8.9 Cardiac Enzymes 04/19/18 Range/Units 18:18 Troponin I Less than 0.02 L (0.02-0.05) ng/mL Liver Function 04/19/18 Range/Units 18:18 Total Bilirubin 0.5 (0.2-1.0) mg/dL AST 20 (15-37) U/L ALT 16 (10-53) U/L Alkaline Phosphatase 115 (45-117) U/L Albumin 3.2 L (3.4-5.0) g/dL Urine 04/19/18 Range/Units 19:35 Urine Color Yellow (Yellw/Straw) Urine Clarity Turbid H (Clear) Urine pH 5.0 (5.0-8.5) Ur Specific [place] 1.011 (1.002-1.035) Urine Protein Negative (Neg-Trace) mg/dL Urine Glucose (UA) Negative (Negative) mg/dL - Imaging Impressions Chest X-Ray 04/19/18 18:13 CONCLUSION: Stable appearance with no acute cardiopulmonary disease. There is no evidence of pneumonia. Head CT 04/19/18 18:13 CONCLUSION: 1. Suboptimal examination with motion artifact. No evidence of acute hemorrhage or mass effect. 2. Chronic sinusitis again noted involving the sphenoid sinuses. . Caprini VTE Risk Assessment Caprini VTE Risk Assessment: No/Low Risk (score <= 1) Caprini Risk Assessment Model: Point Value = 1 Point Value = 2 Point Value = 3 Point Value = 5 Age 41-60 Minor surgery BMI > 25 kg/m2 Swollen legs Varicose veins or History of unexplained or recurrent spontaneous Oral contraceptives or hormone replacement Sepsis (< 1 month) Serious lung disease, including pneumonia (< 1 month) Abnormal pulmonary function Acute myocardial infarction Congestive heart failure (< 1 month) History of inflammatory bowel disease Medical patient at bed rest Age 61-74 Arthroscopic surgery Major open surgery (> 45 min) Laparoscopic surgery (> 45 min) Malignancy Confined to bed (> 72 hours) Immobilizing plaster cast Central venous access Age >= 75 History of VTE Family history of VTE Factor V Leiden Prothrombin [id number] Lupus anticoagulant Anticardiolipin antibodies Elevated serum homocysteine Heparin-induced thrombocytopenia Other congenital or acquired thrombophilia Stroke (< 1 month) Elective arthroplasty Hip, pelvis, or leg fracture Acute spinal cord injury (< 1 month) Prophylaxis Regimen: Total Risk Factor Score Risk Level Prophylaxis Regimen 0-1 Low Early ambulation 2 Moderate Order ONE of the following: *Sequential Compression Device (SCD) *Heparin 5000 units SQ BID 3-4 Higher Order ONE of the following medications: *Heparin 5000 units SQ TID *Enoxaparin/Lovenox 40 mg SQ daily (WT < 150 kg, CrCl > 30 mL/min) *Enoxaparin/Lovenox 30 mg SQ daily (WT < 150 kg, CrCl > 10-29 mL/min) *Enoxaparin/Lovenox 30 mg SQ BID (WT < 150 kg, CrCl > 30 mL/min) AND/OR *Sequential Compression Device (SCD) 5 or more Highest Order ONE of the following medications: *Heparin 5000 units SQ TID (Preferred with Epidurals) *Enoxaparin/Lovenox 40 mg SQ daily (WT < 150 kg, CrCl > 30 mL/min) *Enoxaparin/Lovenox 30 mg SQ daily (WT < 150 kg, CrCl > 10-29 mL/min) *Enoxaparin/Lovenox 30 mg SQ BID (WT < 150 kg, CrCl > 30 mL/min) AND *Sequential Compression Device (SCD) Assessment and Plan - Assessment (1) Encephalopathy Code(s): G93.40 - Encephalopathy, unspecified Status: Acute (2) MANDY (acute kidney injury) Code(s): N17.9 - Acute kidney failure, unspecified Status: Acute (3) UTI (urinary tract infection) Code(s): N39.0 - Urinary tract infection, site not specified Status: Acute (4) CHF (congestive heart failure) Code(s): I50.9 - Heart failure, unspecified Status: Acute (5) Afib Code(s): I48.91 - Unspecified atrial fibrillation Status: Acute - Plan A/P: 1. Encephalopathy: acute episode of AMS per report, likely secondary to transient hypotension and UTI, pt now seemingly back to baseline mental status. CT Head w/ no acute findings. Neuro checks. 2. UTI: Recurrent. Previous admit 03/08-03/11/18 for UTI/Sepsis, Urine Culture 03/08 +ESBL E Coli, s/p Doxycycline in ER, susceptibilities/YAMIL reviewed , will continue w/ Ertapenem, consult ID for further eval/recommendations regarding antibiotic regimen. Follow urine cultures. 3. MANDY: Creatinine 1.39, previously 0.06 on 03/11/2018. IVF for hydration, monitor I/O, repeat labs in am. 4. DVT Prophylaxis: SCD/Teds 5. Social work for d/c planning as needed. 6. Case discussed w/ ER physician at length, labs/records/imaging reviewed by me.
[2018-04-20] MEDS: Sod Chloride 0.9% Inj 1,000 ML IV.CONT SCH ×3 (00:25→21:51)
[2018-04-20 08:32] LABS: Baso % (Auto) 0.8 % (0.0-2.0); Eos # (Auto) 0.3 th/mm3 (0.0-0.4); Eos % (Auto) 6.5 % (0.0-4.0); Hematocrit 39.9 % (35.0-46.0); Hemoglobin 12.8 gm/dL (11.6-15.3); Lymph # (Auto) 1.4 th/mm3 (1.0-4.8); Lymph % (Auto) 26.4 % (9.0-44.0); Mean Corpuscular Hemoglobin 29.9 pg (27.0-34.0); Mean Corpuscular Volume 93.3 fL (80.0-100.0); Mean Platelet Volume 9.5 fL (7.0-11.0); Mono # (Auto) 0.5 th/mm3 (0.0-0.9); Mono % (Auto) 10.2 % (0.0-8.0); Neut % (Auto) 56.1 % (16.0-70.0); Platelet Count 157 th/mm3 (150-450); Red Blood Count 4.28 mil/mm3 (4.00-5.30); Red Cell Distribution Width 14.8 % (11.6-17.2); White Blood Count 5.3 th/mm3 (4.0-11.0)
[2018-04-20 09:03] LABS: Alanine Aminotransferase 16 U/L (10-53)
[2018-04-20 09:05] LABS: Alkaline Phosphatase 94 U/L (45-117); Total Protein 6.1 g/dL (6.4-8.2)
[2018-04-20 09:09] LABS: Albumin 2.7 g/dL (3.4-5.0); Anion Gap 5 meq/L (5-15); Aspartate Aminotransferase 28 U/L (15-37); Blood Urea Nitrogen 23 mg/dL (7-18); Calcium 8.8 mg/dL (8.5-10.1); Carbon Dioxide 25.4 meq/L (21.0-32.0); Chloride 113 meq/L (98-107); Glomerular Filtration Rate 58 mL/min (>89); Glucose,Random 82 mg/dL (74-106); Potassium 5.3 meq/L (3.5-5.1); Sodium 143 meq/L (136-145)
[2018-04-20] MEDS: Gabapentin 300 MG Capsule PO SCH ×2 (10:08→21:52)
[2018-04-20] MEDS: dilTIAZem CD 120 MG Capsule PO SCH (10:08)
[2018-04-20] MEDS: Baclofen 10 MG Tablet PO SCH ×2 (10:09→21:52)
[2018-04-20] MEDS: Senna/Docusate Sodium 8.6/50 MG Tablet PO SCH ×2 (10:09→21:52)
[2018-04-20] MEDS: Atenolol 25 MG Tablet PO SCH (10:09)
[2018-04-20] MEDS: Budesonide-Formoterol 160/4.5 MCG 6 GM Inhaler INH SCH ×2 (10:10→21:53)
[2018-04-20] MEDS: Tiotropium Bromide 18 MCG/ACT Inhaler INH SCH (10:10)
--- NOTE | 2018-04-20 12:48 | ECG ---
Date Performed: 04/19/2018 Time Performed: 19:27:54 PTAGE: 82 years EKG: ATRIAL FIBRILLATION LOW QRS VOLTAGE IN PRECORDIAL LEADS SEPTAL MYOCARDIAL INFARCTION ABNORM AL ECG Since the PREVIOUS TRACING , no significant change noted PREVIOUS TRACIN04/19/2018 19.27 DOCTOR: Micky Abrams Interpretating Date/Time 04/20/2018 12:48:24
--- NOTE | 2018-04-20 17:16 | P.PNIM ---
Subjective Interval history: Pt found lying in bed, dressed in hospital gown, NAD, alert and oriented x4. States that she feels "fine" and does not recall the events leading up to this admission but remembers reasons for prior hospitalization last month. Per pt, Last BM was "a few days ago, but I feel like I could go right now". Good Appetite, Sleeping/Eating well. Denies Fever, MARIN, Chest Pain, SOB, Abdominal Pain, N/V, Suprapubic Pain, Pelvic Pain, Flank Pain, Dysuria, Dark Urine, Change in Stool, Rash, or Paresthesias. No worries or concerns at this time. GEN: Denies Fever, Fatigue, Weight Loss/Gain HEENT: Denies MARIN, Vision Changes, Ear Pain, Neck Pain, Sore Throat Cardio: Denies Chest Pain, Jaw/Arm Claudication, Edema Lungs: Denies SOB, Cough GI: Denies N/V, Ab Pain, Diarrhea/Constipation, Melena, Hematochezia, Constipation, Last BM several days ago per pt : Denies Dysuria, Dark Urine, Flank Pain, Suprapubic Pain, Pelvic Pain, Incontinence MSK: Denies Muscle Aches/Pains, Edema SKIN: Denies Rash, Pruritus, or Open Wounds Neuro: Denies Weakness Attending note: Patient denies any complaints. She is alert and oriented. She denies any pain. No fevers. Physical Exam Vital signs: Vital Signs 04/19/18 17:33 04/19/18 18:12 04/19/18 18:42 Temperature 98.9 F Pulse Rate 86 84 Respiratory Rate 18 22 Blood Pressure 125/61 Pulse Oximetry 94 L 96 04/19/18 20:50 04/20/18 00:00 04/20/18 00:24 Temperature 98.5 F Pulse Rate 85 69 75 Respiratory Rate 20 17 14 Blood Pressure 130/62 128/58 L Pulse Oximetry 96 96 96 04/20/18 04:00 04/20/18 07:56 04/20/18 08:00 Temperature 98.4 F 98 F Pulse Rate 67 92 H 73 Respiratory Rate 17 20 Blood Pressure 126/59 L 125/67 Pulse Oximetry 96 95 04/20/18 11:59 04/20/18 16:00 Temperature 98.2 F 98.1 F Pulse Rate 96 H 67 Respiratory Rate 20 18 Blood Pressure 146/74 H 118/60 Pulse Oximetry 96 94 L Intake & Output 04/19/18 04/20/18 04/20/18 18:59 06:59 18:59 Intake Total 500 / 500 1100 / 1100 Output Total 1100 / 1100 Balance -600 / -600 1100 / 1100 Weight 180 kg Intake: IV 500 / 500 1100 / 1100 NS Inj 1,000 ML @ 100 mls/hr IV 1000 / 1000 .CONT .Q10H [facility] Rx#:[id number] INVanz Inj 1,000 MG In NS Inj 100 / 100 100 ML @ 200 mls/hr IV.SIG Q24H [facility] Rx#:[id number] NS Inj 500 ML @ 1000 mls/hr IV. 500 / 500 SIG BOLUS [facility] Rx#:[id number] Output: Urine Amount (Catheter) 1100 / 1100 Indwelling Urethral Catheter 1100 / 1100 Other: # Voids 1 # Incontinent Voids 1 # Urine Diapers 1 Narrative: GEN: lying in bed, dressed in hospital gown, NAD, pleasant, cooperative HEENT: Head - normocephalic, atraumatic, no edema, No lid lag or facial droop; Eye - nonicteric, noninjected, no conjunctival pallor CARDIO: RRR, Normal S1/S2, No murmurs/rubs/gallops GI: +BS all 4 quadrants, Abdomen soft, non-tender, nondistended, No organomegaly or masses noted : No suprapubic tenderness to palpation NEURO: Awake, Alert, Oriented x4. No focal neurologic deficits. Moving both upper and lower extremities spontaneously. PSYCH: Mood "good", Mood Congruent and Appropriate Affect. Insight and judgment normal. MSK: No obvious bony defects, edema. Left AKA SKIN: Warm, Dry, Intact, No rash/jaundice/petechiae/purpura Attending: GENERAL: No acute distress. CARDIOVASCULAR: Regular rate and rhythm without murmurs, gallops, or rubs. RESPIRATORY: Breath sounds equal bilaterally. No accessory muscle use. GASTROINTESTINAL: Abdomen soft, non-tender, nondistended. MUSCULOSKELETAL: No cyanosis, or edema. s/p left AKA NEURO: Alert and oriented x4. Non focal. - Urinary Catheter Management Indwelling Urethral Catheter Cath placed during this visit: yes Reason for continuing: Other continuation reason Insertion date: 04/19/18 Insertion time: 20:00 Results - Labs CBC & Chem 7: 04/20/18 07:39 04/20/18 07:39 Laboratory Results - last 24 hr 04/19/18 04/19/18 04/19/18 18:18 18:18 19:35 WBC 7.1 RBC 4.26 Hgb 13.1 Hct 39.2 MCV 92.1 MCH 30.7 MCHC 33.3 RDW 14.4 Plt Count 197 MPV 9.1 Neut % (Auto) 62.8 Lymph % (Auto) 20.9 Hitchcock % (Auto) 10.0 H Eos % (Auto) 5.6 H Baso % (Auto) 0.7 Neut # (Auto) 4.5 Lymph # (Auto) 1.5 [place] # (Auto) 0.7 Eos # (Auto) 0.4 Baso # (Auto) 0.0 WBC Differential . Differential Comment Auto diff final Sodium 142 Potassium 4.7 Chloride 110 H Carbon Dioxide 27.8 Anion Gap 4 L BUN 31 H Creatinine 1.39 H Estimated GFR 36 L POC Glucose Random Glucose 120 H Calcium 8.9 Magnesium 2.2 Total Bilirubin 0.5 AST 20 ALT 16 Alkaline Phosphatase 115 Troponin I Less than 0.02 L Total Protein 6.8 Albumin 3.2 L Urine Color Yellow Urine Clarity Turbid H Urine pH 5.0 Ur Specific [place] 1.011 Urine Protein Negative Urine Glucose (UA) Negative Urine Ketones Negative Urine Occult Blood Small H Urine Nitrate Negative Urine Bilirubin Negative Urine Urobilinogen Less than 2 Ur Leukocyte Esterase Large H Urine RBC 9 H Urine WBC 154 H Urine WBC Clumps Many H Hyaline Casts 14 Urine Yeast Few H Micro UA Comment Cath-culture ind Ur Microscopic Review Not Reportable Urine Culture Comments Cath-cult indicated 04/19/18 04/20/18 04/20/18 23:10 07:39 07:39 WBC 5.3 RBC 4.28 Hgb 12.8 Hct 39.9 MCV 93.3 MCH 29.9 MCHC 32.0 RDW 14.8 Plt Count 157 MPV 9.5 Neut % (Auto) 56.1 Lymph % (Auto) 26.4 [place] % (Auto) 10.2 H Eos % (Auto) 6.5 H Baso % (Auto) 0.8 Neut # (Auto) 3.0 Lymph # (Auto) 1.4 [place] # (Auto) 0.5 Eos # (Auto) 0.3 Baso # (Auto) 0.0 WBC Differential . Differential Comment Auto diff final Sodium 143 Potassium 5.3 H Chloride 113 H Carbon Dioxide 25.4 Anion Gap 5 BUN 23 H Creatinine 0.93 Estimated GFR 58 L POC Glucose 130 H Random Glucose 82 Calcium 8.8 Magnesium Total Bilirubin 0.7 AST 28 ALT 16 Alkaline Phosphatase 94 Troponin I Total Protein 6.1 L D Albumin 2.7 L Urine Color Urine Clarity Urine pH Ur Specific [place] Urine Protein Urine Glucose (UA) Urine Ketones Urine Occult Blood Urine Nitrate Urine Bilirubin Urine Urobilinogen Ur Leukocyte Esterase Urine RBC Urine WBC Urine WBC Clumps Hyaline Casts Urine Yeast Micro UA Comment Ur Microscopic Review Urine Culture Comments Microbiology 04/19/18 19:35 Clean Catch Urine Urine Culture - Preliminary gram negative rods - Imaging Impressions Chest X-Ray 04/19/18 18:13 CONCLUSION: Stable appearance with no acute cardiopulmonary disease. There is no evidence of pneumonia. Head CT 04/19/18 18:13 CONCLUSION: 1. Suboptimal examination with motion artifact. No evidence of acute hemorrhage or mass effect. 2. Chronic sinusitis again noted involving the sphenoid sinuses. . Assessment and Plan - Plan 82 yo Female w/ Hx of AFIB, CHF, COPD, HTN, Hyperlipidemia, and Recurrent MDRO UTIs, who was admitted after presenting to the ED on 04/19/18 for AMS in the context of recurrent UTIs and recent hospitalization on 03/08- for Sepsis and UTI. Cultures on 03/11/18 grew E.coli ESBL+. Pt discharged on Doxycycline at the time. She returned with encephalopathy and recurrent UTI. 1) Encephalopathy - acute episode of AMS per report, likely secondary to transient hypotension and UTI, pt now seemingly back to baseline mental status. * CT Head w/ no acute findings * Monitor with frequent Neuro checks for delirium, AMS, and deterioration * Resolved 2) UTI - Recurrent, Previous admit 03/08-03/11/18 for UTI/Sepsis, Urine Culture 03/08 +ESBL E Coli, s/p Doxycycline in ER * Urine Culture significant for Gram Negative Rods (04/20/18) - sensitivity pending, will continue to follow and adjust tx regimen accordingly * Continue Ertapenem * Consult ID for further evaluation/recommendations regarding antibiotic regimen 3) MANDY - Likely prerenal. Improving, most recent Creatinine is 0.93 (04/20/18) was Creatinine 1.39 on admission (04/19/18), previously 0.06 on 03/11/2018 * Continue to monitor I/O * Follow up labs in AM. 4) Chronic Pain Syndrome - stable * Monitor for Hypotension * Continue Home Meds - Gabapentin 600mg twice daily, Duloxetine 20mg twice daily 5) AFIB and CHF - stable * Monitor for arrhythmias with daily EKG or Telemetry * Continue Home Meds - Apixaban 2.5mg twice daily, Diltiazem 120mg once daily 6) COPD - stable * Continue Home Meds - DuoNebs prn, Symbicort 2 puffs twice daily, Tiotropium 18mcg inhalation once daily 7) HTN - stable * Continue Home Meds - Atenolol 25mg once daily 8) Hyperlipidemia - stable * Continue Home Meds - Pravastatin 20mg twice daily 9) Hx of Falls * Fall Risk, assist pt with ambulation, grooming tasks, and showering 10) DVT Prophylaxis - On Eliquis. - Attending Attestation The exam, history, and the medical decision-making described in the above note were completed with the assistance of the medcial student Marc Lopez. I reviewed, edited and agree with the findings presented. I attest that I had a [id number] encounter with the patient on the same day, and personally performed and documented my assessment and findings in the medical record. Patient with encephalopathy likely due to recurrent ESBL E coli UTI. Follow cultures. Continue IV abx. ID consulted. Much improved.
--- NOTE | 2018-04-20 19:48 | P.CONID ---
History of Present Illness Service: ID Consult date: 04/20/18 Requesting Physician: Goldie High Reason for Consult: UTI, ESBL+ Primary Care Provider: No Primary Care Physician History of Present Illness: 82 yo female poor historian ESBL+ E coli UTI in February presented essentially with mental staus grace mills stabel, afebrile on presentation Abnormal UA with prominen pyuria,+LE and nitrite GNBs in urine culture Endorses frequent UTIs Started on Ertapenem Feels better Review of Systems All other systems reviewed negative except as stated in HPI PMFSH - History History Provided By: Patient - Medical History Medical History: Medical History (Last Reviewed 04/21/18 @ 02:05 by Karon Bautista MD) Afib CHF (congestive heart failure) COPD (chronic obstructive pulmonary disease) Falls Hypertension MDRO (multiple drug resistant organisms) resistance Onset Date: ~03/08/18 Weakness - Surgical History Surgical History: Surgical History (Last Reviewed 04/21/18 @ 02:05 by Karon Bautista MD) Status post below knee amputation of left lower extremity - Tobacco History Second Hand Smoke Exposure: No Smoking Status: Former smoker - Alcohol History How Often Do You Have a Drink Containing Alcohol: Never - Substance Use History Substance History: No History of Abuse - Travel History Recent Travel in the [place] Within the Last 8 Weeks: No Recent Travel Out of the Country Within the Last 8 Weeks: No - Immunization History Tetanus Immunization: <5 Years Hx Influenza Vaccine This Season: Yes Medications and Allergies Active Medications: Active Medications Acetaminophen (Tylenol) 650 mg PO Q4H PRN PRN Reason: Temp > 100.4 Al Hydroxide/Mg Hydroxide (Milk Of [place]pe [place]) 30 ml PO Q12H PRN PRN Reason: Mild Constipation Albuterol (Duoneb Neb (Prn)) 1 ampul NEB Q2HR NEB PRN PRN Reason: SHORTNESS OF BREATH/WHEEZING Last Admin: 04/20/18 00:21 Dose: 1 ampul Apixaban (Eliquis) 2.5 mg PO BID [facility] Last Admin: 04/20/18 10:08 Dose: 2.5 mg Atenolol (Tenormin) 25 mg PO DAILY [facility] Last Admin: 04/20/18 10:09 Dose: 25 mg Baclofen (Lioresal) 10 mg PO BID [facility] Last Admin: 04/20/18 10:09 Dose: 10 mg Bisacodyl (Dulcolax Supp) 10 mg RECTAL DAILY PRN PRN Reason: SEVERE CONSITIPATION Budesonide/Formoterol Fumarate (Symbicort 160/4.5 Mcg Inh) 2 puff INH BID [facility] Last Admin: 04/20/18 10:10 Dose: 2 puff Diltiazem HCl (Cardizem Cd 24hr) 120 mg PO DAILY [facility] Last Admin: 04/20/18 10:08 Dose: 120 mg Duloxetine HCl (Cymbalta) 20 mg PO BID [facility] Last Admin: 04/20/18 10:08 Dose: 20 mg Fentanyl (Duragesic 25 Mcg Patch.72hr) 1 patch T-DERMAL Q72H [facility] Last Admin: 04/19/18 23:01 Dose: Not Given Gabapentin (Neurontin) 600 mg PO Q12HR [facility] Last Admin: 04/20/18 10:08 Dose: 600 mg Ertapenem 1,000 mg/ Sodium (Chloride) 100 mls @ 200 mls/hr IV.SIG Q24H [facility] Last Infusion: 04/20/18 11:44 Dose: Infused Sodium Chloride (Ns Inj) 1,000 mls @ 100 mls/hr IV.CONT .Q10H [facility] Last Admin: 04/20/18 10:22 Dose: 100 mls/hr Lactulose (Lactulose Liq) 30 ml PO DAILY PRN PRN Reason: SEVERE CONSITIPATION Melatonin (Melatonin) 5 mg PO HS PRN PRN Reason: Insomnia Ondansetron HCl (Zofran Inj) 4 mg IV.PUSH Q6H PRN PRN Reason: NAUSEA OR VOMITING Patch Removal (Remove Old Patch) 1 each T-DERMAL Q72H [facility] Pravastatin Sodium (Pravachol) 20 mg PO BID [facility] Last Admin: 04/20/18 10:08 Dose: 20 mg Senna/Docusate Sodium ([place]ia-Colace) 1 tab PO BID [facility] Last Admin: 04/20/18 10:09 Dose: Not Given Sennosides (Senokot) 17.2 mg PO Q12H PRN PRN Reason: Moderate Constipation Sodium Chloride (Ns Flush) 2 ml IV.FLUSH BID [facility] Last Admin: 04/20/18 10:21 Dose: Not Given Sodium Chloride (Ns Flush) 2 ml IV.FLUSH PRN PRN PRN Reason: FLUSH AFTER USING IV ACCESS Tiotropium [place] (Spiriva 18 Mcg Inh) 18 mcg INH DAILY [facility] Last Admin: 04/20/18 10:10 Dose: 18 mcg Allergies Allergy/AdvReac Type Severity Reaction Status Date / Time vancomycin Allergy Intermediate Itching Verified 04/19/18 21:25 cefepime Allergy Rash Verified 04/19/18 21:25 *MDRO Multi-Drug Resistant AdvReac Unknown Ulcers Uncoded 04/19/18 20:49 Organism Home Medications Medication Instructions Recorded Confirmed Type baclofen 10 mg PO BID 03/08/18 04/19/18 History cetirizine 10 mg PO DAILY 03/08/18 04/19/18 History duloxetine 20 mg PO BID 03/08/18 04/19/18 History fentanyl 1 patch TRANSDERMAL Q72H 03/08/18 04/19/18 History gabapentin [Neurontin] 600 mg PO TID 03/08/18 04/19/18 History lovastatin 20 mg PO BID 03/08/18 04/19/18 History albuterol sulfate 2.5 mg INHALATION QID 04/19/18 04/19/18 History apixaban [Eliquis] 2.5 mg PO BID 04/19/18 04/19/18 History atenolol 25 mg PO DAILY 04/19/18 04/19/18 History budesonide-formoterol [Symbicort] 2 puff INHALATION BID 04/19/18 04/19/18 History diltiazem HCl [DILT-XR] 120 mg PO DAILY 04/19/18 04/19/18 History lisinopril 10 mg PO DAILY 04/19/18 04/19/18 History melatonin 5 mg PO HS PRN 04/19/18 04/19/18 History metoprolol tartrate 25 mg PO BID 04/19/18 04/19/18 History tiotropium bromide [Spiriva with 1 cap INHALATION DAILY 04/19/18 04/19/18 History HandiHaler] torsemide 10 mg PO DAILY 04/19/18 04/19/18 History Exam Vital signs: Vital Signs 04/19/18 20:50 04/20/18 00:00 04/20/18 00:24 Temperature 98.5 F Pulse Rate 85 69 75 Respiratory Rate 20 17 14 Blood Pressure 130/62 128/58 L Pulse Oximetry 96 96 96 04/20/18 04:00 04/20/18 07:56 04/20/18 08:00 Temperature 98.4 F 98 F Pulse Rate 67 92 H 73 Respiratory Rate 17 20 Blood Pressure 126/59 L 125/67 Pulse Oximetry 96 95 04/20/18 11:59 04/20/18 16:00 Temperature 98.2 F 98.1 F Pulse Rate 96 H 68 Respiratory Rate 20 18 Blood Pressure 146/74 H 118/60 Pulse Oximetry 96 94 L Intake & Output 04/20/18 04/20/18 04/21/18 06:59 18:59 06:59 Intake Total 500 / 500 1940 / 1940 Output Total 1100 / 1100 1000 / 1000 Balance -600 / -600 940 / 940 Intake: IV 500 / 500 1100 / 1100 NS Inj 1,000 ML @ 100 mls/hr IV 1000 / 1000 .CONT .Q10H [facility] Rx#:[id number] INVanz Inj 1,000 MG In NS Inj 100 / 100 100 ML @ 200 mls/hr IV.SIG Q24H [facility] Rx#:[id number] NS Inj 500 ML @ 1000 mls/hr IV. 500 / 500 SIG BOLUS [facility] Rx#:[id number] Oral 840 / 840 Output: Urine 1000 / 1000 Urine Amount (Catheter) 1100 / 1100 Indwelling Urethral Catheter 1100 / 1100 Other: # Voids 1 # Incontinent Voids 1 # Urine Diapers 1 Date of Last Bowel Movement 05/19/18 # Bowel Movements 1 - Constitutional no acute distress, average body habitus - Routine HEENT Exam Head: Present: normocephalic, atraumatic Eye: Present: EOMI, PERRL ENT: Present: mucous membranes moist, oropharynx clear - Routine Neck Exam Present: supple. Absent: JVD - Routine Respiratory Exam Present: CTA bilaterally. Absent: decreased breath sounds, respiratory distress - Routine Cardiovascular Exam Present: RRR, S1, S2. Absent: murmur, gallop, rubs - Routine Abdominal Exam Present: soft, normoactive bowel sounds. Absent: tenderness, distended - Routine Exam Comments: arias in place with slightly cloudy yellow urine - Routine Extremities Exam Present: amputation (L AKA well healed). Absent: cyanosis, clubbing, edema - Routine Skin Exam Present: dry, warm. Absent: erythema, rash - Routine Neurological Exam Present: alert, oriented X3, CN II-XII intact. Absent: sensory deficit, motor deficit - Routine Psychiatric Exam Present: normal affect, cooperative Results - Labs CBC & Chem 7: 04/20/18 07:39 04/20/18 07:39 Labs: Laboratory Results - last 24 hr 04/19/18 04/19/18 04/20/18 19:35 23:10 07:39 WBC 5.3 RBC 4.28 Hgb 12.8 Hct 39.9 MCV 93.3 MCH 29.9 MCHC 32.0 RDW 14.8 Plt Count 157 MPV 9.5 Neut % (Auto) 56.1 Lymph % (Auto) 26.4 [place] % (Auto) 10.2 H Eos % (Auto) 6.5 H Baso % (Auto) 0.8 Neut # (Auto) 3.0 Lymph # (Auto) 1.4 [place] # (Auto) 0.5 Eos # (Auto) 0.3 Baso # (Auto) 0.0 WBC Differential . Differential Comment Auto diff final Sodium Potassium Chloride Carbon Dioxide Anion Gap BUN Creatinine Estimated GFR POC Glucose 130 H Random Glucose Calcium Total Bilirubin AST ALT Alkaline Phosphatase Total Protein Albumin Urine Color Yellow Urine Clarity Turbid H Urine pH 5.0 Ur Specific [place] 1.011 Urine Protein Negative Urine Glucose (UA) Negative Urine Ketones Negative Urine Occult Blood Small H Urine Nitrate Negative Urine Bilirubin Negative Urine Urobilinogen Less than 2 Ur Leukocyte Esterase Large H Urine RBC 9 H Urine WBC 154 H Urine WBC Clumps Many H Hyaline Casts 14 Urine Yeast Few H Micro UA Comment Cath-culture ind Ur Microscopic Review Not Reportable Urine Culture Comments Cath-cult indicated 04/20/18 07:39 WBC RBC Hgb Hct MCV MCH MCHC RDW Plt Count MPV Neut % (Auto) Lymph % (Auto) [place] % (Auto) Eos % (Auto) Baso % (Auto) Neut # (Auto) Lymph # (Auto) [place] # (Auto) Eos # (Auto) Baso # (Auto) WBC Differential Differential Comment Sodium 143 Potassium 5.3 H Chloride 113 H Carbon Dioxide 25.4 Anion Gap 5 BUN 23 H Creatinine 0.93 Estimated GFR 58 L POC Glucose Random Glucose 82 Calcium 8.8 Total Bilirubin 0.7 AST 28 ALT 16 Alkaline Phosphatase 94 Total Protein 6.1 L D Albumin 2.7 L Urine Color Urine Clarity Urine pH Ur Specific [place] Urine Protein Urine Glucose (UA) Urine Ketones Urine Occult Blood Urine Nitrate Urine Bilirubin Urine Urobilinogen Ur Leukocyte Esterase Urine RBC Urine WBC Urine WBC Clumps Hyaline Casts Urine Yeast Micro UA Comment Ur Microscopic Review Urine Culture Comments - Imaging Chest X-Ray 04/19/18 18:13 CONCLUSION: Stable appearance with no acute cardiopulmonary disease. There is no evidence of pneumonia. Head CT 04/19/18 18:13 CONCLUSION: 1. Suboptimal examination with motion artifact. No evidence of acute hemorrhage or mass effect. 2. Chronic sinusitis again noted involving the sphenoid sinuses. . Assessment and Plan - Plan UTI, gram negative, ID P recent h/o ESBL+ E.coli UTI agree with initial abx choice further recommnedations per final clx
[2018-04-21] MEDS: Sod Chloride 0.9% Inj 1,000 ML IV.CONT SCH ×2 (04:53→13:35)
[2018-04-21] MEDS: Senna/Docusate Sodium 8.6/50 MG Tablet PO SCH ×2 (08:51→20:20)
[2018-04-21] MEDS: Baclofen 10 MG Tablet PO SCH ×2 (08:51→20:21)
[2018-04-21] MEDS: dilTIAZem CD 120 MG Capsule PO SCH (08:52)
[2018-04-21] MEDS: Gabapentin 300 MG Capsule PO SCH ×2 (08:52→20:21)
[2018-04-21] MEDS: Atenolol 25 MG Tablet PO SCH (08:53)
[2018-04-21] MEDS: Tiotropium Bromide 18 MCG/ACT Inhaler INH SCH (08:54)
[2018-04-21] MEDS: Budesonide-Formoterol 160/4.5 MCG 6 GM Inhaler INH SCH ×2 (08:56→20:29)
[2018-04-21 10:38] LABS: Hematocrit 38.5 % (35.0-46.0); Hemoglobin 12.9 gm/dL (11.6-15.3); Mean Corpuscular HGB Conc 33.6 % (32.0-36.0); Mean Corpuscular Hemoglobin 30.5 pg (27.0-34.0); Mean Corpuscular Volume 90.8 fL (80.0-100.0); Mean Platelet Volume 8.8 fL (7.0-11.0); Platelet Count 172 th/mm3 (150-450); Red Blood Count 4.23 mil/mm3 (4.00-5.30); Red Cell Distribution Width 14.1 % (11.6-17.2); White Blood Count 5.9 th/mm3 (4.0-11.0)
[2018-04-21 11:07] LABS: Calcium 8.8 mg/dL (8.5-10.1); Carbon Dioxide 26.3 meq/L (21.0-32.0); Potassium 3.9 meq/L (3.5-5.1)
--- NOTE | 2018-04-21 11:13 | P.PNIM ---
Subjective Interval history: Pt found laying in bed, dressed in hospital gown, NAD. Alert, Oriented x4. States that she is feeling "okay". Endorses Dry Mouth that she states is "terrible". Pt reports that she slept well, has good appetite, and had 2 bowel movements yesterday that were "normal for her". Pt states that she now remembers the events that led to this admission, "I was watching TV and I saw bad things that I know now weren't true, it must've been a lighting effect or something on the show." Denies any MARIN, Fever, Cough, Chest Pain, N/V, GERD, Abdominal Pain, Diarrhea/Constipation, Pruritus, Rash, or Muscle Aches/Pains. GEN: Good Appetite, Sleeping/Eating Well; Denies Fever, Fatigue HEENT: Endorses Xerostomia, Dentures; Denies MARIN, Vision Changes, Ear Pain, Sinus Pain/Congestion, Neck Pain, Sore Throat Cardio: Denies Chest Pain, Jaw/Arm Claudication, Edema Lungs: Denies SOB, Cough GI: Denies N/V, Dysphagia/Odynophagia, Abdominal Pain, Diarrhea/Constipation, Melena, Hematochezia : Denies Suprapubic/Pelvic Pain, Vaginal Discharge/Bleeding, Dysuria Neuro: Denies Weakness MSK: Denies Pain, Edema Skin: Denies rash, pruritus Attending notes: Patient seen and examined. She reports that she is feeling okay. She is alert and oriented x4. She has no complaints today. Physical Exam Vital signs: Vital Signs 04/20/18 11:59 04/20/18 16:00 04/20/18 20:00 Temperature 98.2 F 98.1 F 98.1 F Pulse Rate 96 H 68 71 Respiratory Rate 20 18 20 Blood Pressure 146/74 H 118/60 122/55 L Pulse Oximetry 96 94 L 96 04/21/18 00:00 04/21/18 04:00 04/21/18 07:47 Temperature 97.9 F 97.6 F Pulse Rate 76 76 Respiratory Rate 20 20 18 Blood Pressure 144/65 H 131/79 Pulse Oximetry 96 96 04/21/18 07:52 Temperature 97.4 F L Pulse Rate 90 Respiratory Rate 18 Blood Pressure 153/89 H Pulse Oximetry 96 Intake & Output 04/20/18 04/21/1818 18:59 06:59 18:59 Intake Total 1940 / 1940 1999 / 1999 100 / 100 Output Total 1000 / 1000 725 / 725 Balance 940 / 940 1275 / 1275 100 / 100 Weight 83.9 kg Intake: IV 1100 / 1100 1999 / 1999 100 / 100 NS Inj 1,000 ML @ 100 mls/hr IV 1000 / 1000 1999 .CONT .Q10H [facility] Rx#:[id number] INVanz Inj 1,000 MG In NS Inj 100 / 100 100 / 100 100 ML @ 200 mls/hr IV.SIG Q24H [facility] Rx#:[id number] Oral 840 / 840 Output: Urine 1000 / 1000 725 / 725 Other: Date of Last Bowel Movement 05/19/18 05/19/18 # Bowel Movements 1 Narrative: GEN: lying in bed, dressed in hospital gown, NAD, pleasant, cooperative HEENT: Head - normocephalic, atraumatic, no edema; Eye - nonicteric, noninjected , no conjunctival pallor; Oropharynx - Dry Mucosa, Dentures, No exudates CARDIO: Irregularly Irregular Rhythm and Pulses consistent w/ diagnosis of AFIB Lungs: Expiratory Wheezing Appreciated in all Lung [place], No rales/crackles/ rhonchi heard GI: +BS all 4 quadrants, Abdomen soft, non-tender, nondistended, No organomegaly or masses noted : No suprapubic tenderness to palpation NEURO: Awake, Alert, Oriented x4. No focal neurologic deficits. Moving both upper and lower extremities spontaneously. PSYCH: Mood "good", Mood Congruent and Appropriate Affect. Insight and judgment normal. Mini-Cog Score 5/5 MSK: No obvious bony defects, edema. Left AKA SKIN: Warm, Dry, Intact, No rash/jaundice/petechiae/purpura GENERAL: This is a well-nourished, well-developed patient, in no apparent distress. CARDIOVASCULAR: Normal rate and regular rhythm without murmurs, gallops, or rubs. RESPIRATORY: Good respiratory efforts. Breath sounds equal and clear to auscultation bilaterally. GASTROINTESTINAL: Abdomen soft, non-tender, non-distended. Normal active bowel sounds MUSCULOSKELETAL: Extremities without cyanosis, or edema. Status post left AKA NEURO: Alert & Oriented x4 to person, place, time, situation. PSYCH: Appropriate mood and affect. - Urinary Catheter Management Indwelling Urethral Catheter Cath placed during this visit: yes Reason for continuing: Other continuation reason Insertion date: 04/19/18 Insertion time: 20:00 Results - Labs CBC & Chem 7: 04/21/18 09:14 04/21/18 09:14 Laboratory Results - last 24 hr 04/19/18 04/21/18 19:35 09:14 WBC 5.9 RBC 4.23 Hgb 12.9 Hct 38.5 MCV 90.8 MCH 30.5 MCHC 33.6 RDW 14.1 Plt Count 172 MPV 8.8 Urine Color Yellow Urine Clarity Turbid H Urine pH 5.0 Ur Specific [place] 1.011 Urine Protein Negative Urine Glucose (UA) Negative Urine Ketones Negative Urine Occult Blood Small H Urine Nitrate Negative Urine Bilirubin Negative Urine Urobilinogen Less than 2 Ur Leukocyte Esterase Large H Urine RBC 9 H Urine WBC 154 H Urine WBC Clumps Many H Hyaline Casts 14 Urine Yeast Few H Micro UA Comment Cath-culture ind Urine Culture Comments Cath-cult indicated Microbiology 04/19/18 19:35 Clean Catch Urine Urine Culture - Preliminary gram negative rods Assessment and Plan - Plan 82 yo Female w/ Hx of AFIB, CHF, COPD, HTN, Hyperlipidemia, and Recurrent MDRO UTIs, who was admitted after presenting to the ED on 04/19/18 for AMS in the context of recurrent UTIs and recent hospitalization on 03/08- for Sepsis and UTI. Cultures on 03/11/18 grew E.coli ESBL+. Pt discharged on Doxycycline at the time. She returned with encephalopathy and recurrent UTI. 1) Encephalopathy - Resolved, acute AMS per report, likely secondary to transient hypotension and UTI, pt now seemingly back to baseline mental status. * CT Head w/ no acute findings * Monitor with frequent Neuro checks for delirium, AMS, and deterioration * Mini-Cog Score = 5/5 2) UTI - Recurrent, Previous admit 03/08-03/11/18 for UTI/Sepsis, Urine Culture 03/08 +ESBL E Coli, s/p Doxycycline in ER * Urine Culture significant for Gram Negative Rods (04/20/18) - sensitivity pending, will continue to follow and adjust tx regimen accordingly * Continue Ertapenem * Consult ID for further evaluation/recommendations regarding antibiotic regimen 3) MANDY - Likely prerenal. Improving, most recent Creatinine is 0.70 (04/21/18) was Creatinine 1.39 on admission (04/19/18), previously 0.06 on 03/11/2018 * Improved GFR, now 80 (04/21/18) was 36 on admission (04/19) * Continue to monitor I/O * Follow up labs in AM. 4) Xerostomia - chronic, pt reports that it is worse than usual most likely due to ABx and poor PO intake * Encouraged pt to continue hydration efforts and oral hygiene as she has not removed her dentures or brushed her mouth since admission * Nursing: Provided pt w/ Lemon-Glycerine Swabs * Order Oral Hygiene Kit - to prevent oral candidiasis in context that pt is on broad spectrum IV Abx, Inhaled Symbicort, and has dentures 5) Chronic Pain Syndrome - stable * Monitor for Hypotension * Continue Home Meds - Gabapentin 600mg twice daily, Duloxetine 20mg twice daily 6) AFIB and CHF - stable, currently in AFIB * Monitor for arrhythmias with daily EKG or Telemetry * Continue Home Meds - Apixaban 2.5mg twice daily, Diltiazem 120mg once daily 7) COPD - stable * Continue Home Meds - DuoNebs prn, Symbicort 2 puffs twice daily, Tiotropium 18mcg inhalation once daily 8) HTN - stable * Continue Home Meds - Atenolol 25mg once daily 9) Hyperlipidemia - stable * Continue Home Meds - Pravastatin 20mg twice daily 10) Hx of Falls * Fall Risk, assist pt with ambulation, grooming tasks, and showering 11) DVT Prophylaxis - On Eliquis Discharge Planning: Anticipate discharge tomorrow. - Attending Attestation The exam, history, and the medical decision-making described in the above note were completed with the assistance of the medcial student Marc Lopez. I reviewed, edited and agree with the findings presented. I attest that I had a [id number] encounter with the patient on the same day, and personally performed and documented my assessment and findings in the medical record. Encephalopathy resolved. Follow for urine culture sensitivity. Continue antibiotics per infectious disease.
[2018-04-22] MEDS: Sod Chloride 0.9% Inj 1,000 ML IV.CONT SCH ×2 (06:13→11:55)
[2018-04-22] MEDS: Baclofen 10 MG Tablet PO SCH (09:35)
[2018-04-22] MEDS: Gabapentin 300 MG Capsule PO SCH (09:35)
[2018-04-22] MEDS: Senna/Docusate Sodium 8.6/50 MG Tablet PO SCH (09:36)
[2018-04-22] MEDS: Tiotropium Bromide 18 MCG/ACT Inhaler INH SCH (09:36)
[2018-04-22] MEDS: Budesonide-Formoterol 160/4.5 MCG 6 GM Inhaler INH SCH (09:36)
[2018-04-22] MEDS: Atenolol 25 MG Tablet PO SCH (09:40)
[2018-04-22] MEDS: dilTIAZem CD 120 MG Capsule PO SCH (09:49)
--- NOTE | 2018-04-22 13:35 | P.PNIM ---
Subjective Interval history: Pt found lying in bed, dressed in hospital gown, NAD, Alert, Oriented x4. " Close Friend" of Pt, Elana, at bedside. Pt states that she feels "good" and slept well last night but does not have much appetite this morning and did not eat breakfast. Reports that she received the Lemon-Glycerine Swabs and Oral Care Kit which has improved her Xerostomia greatly. Per pt, Last BM was yesterday afternoon and "normal for her". Endorses swelling in the hands and right leg overnight, but has since resolved. Denies MARIN, Fever, Night Sweats/ Chills, Sore Throat, Chest Pain, SOB, Abdominal Pain, N/V, Acid Reflux, Diarrhea /Constipation, Dysuria, Flank Pain, Rash, Pruritus, or Paraesthesias. Nursing Roebr reports that pt was temporarily taken off of fluids overnight due to swelling in extremities. GEN: Decreased Appetite, Sleeping Well; Denies Fever, Fatigue HEENT: Improved Xerostomia, Dentures; Denies MARIN, Vision Changes, Ear Pain, Sinus Pain/Congestion, Neck Pain, Sore Throat Cardio: Denies Chest Pain, Jaw/Arm Claudication, Edema Lungs: Denies SOB, Cough GI: Denies N/V, Dysphagia/Odynophagia, Abdominal Pain, Diarrhea/Constipation, Melena, Hematochezia : Denies Suprapubic/Pelvic Pain, Vaginal Discharge/Bleeding, Dysuria Neuro: Denies Weakness MSK: Denies Pain, Edema Skin: Denies rash, pruritus Physical Exam Vital signs: Vital Signs 04/21/18 15:30 04/21/18 20:00 04/21/18 23:59 Temperature 97.9 F 97.9 F Pulse Rate 70 79 88 Respiratory Rate 18 16 Blood Pressure 151/74 H 163/76 H Pulse Oximetry 96 98 04/22/18 00:00 04/22/18 04:00 04/22/18 08:00 Temperature 97.8 F 97.8 F 97.8 F Pulse Rate 85 73 83 Respiratory Rate 18 18 20 Blood Pressure 175/79 H 149/69 H 152/82 H Pulse Oximetry 99 98 96 04/22/18 11:48 Temperature 97.4 F L Pulse Rate 60 Respiratory Rate 20 Blood Pressure 140/57 L Pulse Oximetry 96 Intake & Output 04/21/18 04/22/18 04/22/18 18:59 06:59 18:59 Intake Total 1600 / 1600 100 / 100 600 / 600 Output Total 650 / 650 650 / 650 Balance 950 / 950 -550 / -550 600 / 600 Weight 84 kg Intake: IV 900 / 900 100 / 100 600 / 600 NS Inj 1,000 ML @ 100 mls/hr IV 800 / 800 100 / 100 500 / 500 .CONT .Q10H LINDSAY Rx#:[id number] INVanz Inj 1,000 MG In NS Inj 100 / 100 100 / 100 100 ML @ 200 mls/hr IV.SIG Q24H LINDSAY Rx#:[id number] Oral 700 / 700 Output: Urine 650 / 650 650 / 650 Other: Date of Last Bowel Movement 04/20/18 04/21/18 04/21/18 # Bowel Movements 1 Narrative: GEN: lying in bed, dressed in hospital gown, NAD, pleasant, cooperative, "friend " Elana at bedside HEENT: Head - normocephalic, atraumatic, no edema; Eye - nonicteric, noninjected , no conjunctival pallor; Oropharynx - Moist Mucosa, Dentures, No exudates CARDIO: Irregularly Irregular Rhythm and Pulses consistent w/ diagnosis of AFIB , Extremities cold to touch, Pulses intact throughout Lungs: Expiratory Wheezing Appreciated in all Lung Sotelo, No rales/crackles/ rhonchi heard GI: +BS all 4 quadrants, Abdomen soft, non-tender, nondistended, No organomegaly or masses noted : No suprapubic tenderness to palpation NEURO: Awake, Alert, Oriented x4. No focal neurologic deficits. Moving both upper and lower extremities spontaneously. PSYCH: Mood "good", Mood Congruent and Appropriate Affect. Insight and judgment normal. MSK: No obvious bony defects, edema. Left AKA SKIN: Cool, Dry, Intact, No rash/jaundice/petechiae/purpura - Urinary Catheter Management Indwelling Urethral Catheter Cath placed during this visit: yes Reason for continuing: Other continuation reason Insertion date: 04/19/18 Insertion time: 20:00 Results - Labs CBC & Chem 7: 04/21/18 09:14 04/21/18 09:14 Microbiology 04/19/18 19:35 Clean Catch Urine Urine Culture - Final Escherichia coli ESBL positive Assessment and Plan - Plan 82 yo Female w/ Hx of AFIB, CHF, COPD, HTN, Hyperlipidemia, and Recurrent MDRO UTIs, who was admitted after presenting to the ED on 04/19/18 for AMS in the context of recurrent UTIs and recent hospitalization on 03/08- for Sepsis and UTI. Cultures on 03/11/18 grew E.coli ESBL+. Pt discharged on Doxycycline at the time. She returned with encephalopathy and recurrent UTI. 1) Encephalopathy - Resolved, acute AMS per report, likely secondary to transient hypotension and UTI, pt now seemingly back to baseline mental status. * CT Head w/ no acute findings * Monitor with frequent Neuro checks for delirium, AMS, and deterioration * Mini-Cog Score = 5/5 2) UTI - Recurrent, Previous admit 03/08-03/11/18 for UTI/Sepsis, Urine Culture 03/08 +ESBL E Coli, s/p Doxycycline in ER * Urine Culture significant for E.coli +ESBL * Continue Ertapenem * Consult ID for further evaluation/recommendations regarding antibiotic regimen before discharged back to group home 3) MANDY - Likely prerenal. Improving, most recent Creatinine is 0.70 (04/21/18) was Creatinine 1.39 on admission (04/19/18), previously 0.06 on 03/11/2018 * Improved GFR, 80 (04/21/18) was 36 on admission (04/19) * Continue to monitor I/O * Meds: STOP IV Fluids - pt appears adequately hydrated with good renal fxn on most recent labs, hx of CHF/AFIB do not want to volume overload 4) Xerostomia - IMPROVED, chronic * Encouraged pt to continue hydration efforts and oral hygiene as she has not removed her dentures or brushed her mouth since admission * Nursing: Provided pt w/ Lemon-Glycerine Swabs * Continue Oral Hygiene Kit - to prevent oral candidiasis in context that pt is on broad spectrum IV Abx, Inhaled Symbicort, and has dentures 5) Chronic Pain Syndrome - stable * Monitor for Hypotension * Continue Home Meds - Gabapentin 600mg twice daily, Duloxetine 20mg twice daily 6) AFIB and CHF - stable, currently in AFIB * Monitor for arrhythmias with daily EKG or Telemetry * Continue Home Meds - Apixaban 2.5mg twice daily, Diltiazem 120mg once daily * Meds: STOP IV Fluids - pt is adequately hydrated and has improved renal fxn, do not want to volume overload 7) COPD - stable * Continue Home Meds - DuoNebs prn, Symbicort 2 puffs twice daily, Tiotropium 18mcg inhalation once daily 8) HTN - stable * Continue Home Meds - Atenolol 25mg once daily 9) Hyperlipidemia - stable * Continue Home Meds - Pravastatin 20mg twice daily 10) Hx of Falls * Fall Risk, assist pt with ambulation, grooming tasks, and showering 11) DVT Prophylaxis - On Eliquis Discharge Planning: Pt ready to be discharged back to group home following ID Consult to confirm pt is on appropriate Abx regimen.
--- NOTE | 2018-04-22 14:05 | P.DCO ---
Post Hospital Infusion Therapy - Infusion Therapy Location of Infusion Therapy: [facility] Infusion Therapy Order - Patient Information Patient Weight: 84 kg - Diagnosis (1) Acute UTI Code(s): N39.0 - Urinary tract infection, site not specified - Administer Medication Ertapenem Dose: 1 gram IV Directions: q 24 hours Start Treatment: 04/23/18 Stop Treatment: 05/03/18 - Additional Information Venous Access: PICC Line Additional Instructions: [x] Peripheral flush and dressing changes per protocol [x] Implanted port and central continuous pickling line pickler: * Implanted port: 10 ml Normal Saline followed by 5 ml Heparin 100 units/ml Heparin flush after each use and monthly to maintain. [] May leave port accessed during therapy. [] May leave peripheral site accessed for duration of therapy. [x] If patient has SOB or respiratory distress, check oxygen saturation. If less than 90% or clinical signs of respiratory distress, administer oxygen at 2 L/min. via nasal cannula and notify physician. [x] Anaphylaxis/Reaction orders: * Stop infusion. * Keep IV line open with saline flush. * Notify physician. * Monitor vital signs every 15 minutes until symptoms resolve. * Check Oxygen saturation; Oxygen at 2 L/min. via nasal cannula if less than 90% or clinical signs of respiratory distress. * Administer diphenhydramine (Benadryl) 25 mg IV STAT, (unless patient has received as pre-med). May repeat once, if necessary. * Solu-Cortef 250 mg IVP over 30-60 seconds, use 100 mg vials for each dissolution. * Epinephrine (1mg/1 ml) 0.3 mg subcutaneously or IVP now with any signs of respiratory distress. * Check with physician for new additional pre-med orders if patient is re- challenged or re-treated. [x] May remove PICC line when treatment complete, after confirming with Physician. [x] If the patient is admitted to the hospital, the ED, or transferred via EVAC , complete transfer form including medication reconciliation order sheet. 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
--- NOTE | 2018-04-22 15:53 | P.DS ---
<Rukhsana Workmann - Last Filed: 04/22/18 15:00> Date of admission: 04/19/18 21:21 Primary care physician: No Primary Care Physician Brief History from admission: This is the HPI as documented by the Admitting Physician This is an 82-year-old female with a PMH of HTN, Hyperlipidemia, CHF (Echo 03/10 with EF 55-60%), A. fib on Eliquis, h/o Left BKA and Dementia who was sent to the ER from [facility] for AMS and hypotension. Recent admit 03/08- for UTI/Sepsis. Upon EMS arrival, BP 80's systolic, s/p IVF w/ improvement. Pt poor historian, but reports increased lethargy for the last few days. Unsure if she's had fever/chills. On arrival, BP 125/61, HR 86, O2 sat 94% on RA, Afebrile. CBC unremarkable. Creatinine 1.39, previously 0.60 on 03/11/2018. UA positive for UTI. CT Head with no acute findings. CXR with stable appearance. Per review of UTI from 03/08, +ESBL E Coli, s/p Doxycycline in ER. DS: Diagnosis - Discharge Diagnosis (1) UTI (urinary tract infection) Status: Acute Diagnosis: Principal (2) ESBL (extended spectrum beta-lactamase) producing bacteria infection Status: Acute Diagnosis: Principal (Urine Culture significant for +ESBL E.coli) (3) MANDY (acute kidney injury) Status: Acute Diagnosis: Secondary (RESOLVED, Most likely due to dehydration and Acute UTI) DS: Summary Hospital Course: 82 yo Female w/ Hx of AFIB, CHF, COPD, HTN, Hyperlipidemia, and Recurrent MDRO UTIs, who was admitted after presenting to the ED on 04/19/18 for AMS in the context of recurrent UTIs and recent hospitalization on 03/08- for Sepsis and UTI. Cultures on 03/11/18 grew E.coli ESBL+. Pt discharged on Doxycycline at the time. She returned with encephalopathy and recurrent UTI. 1) Encephalopathy - Resolved, likely Delirium secondary to transient hypotension and UTI, pt now seemingly back to baseline mental status. * CT Head w/ no acute findings * Pt was monitored by staff with frequent Neuro checks for delirium, AMS, and deterioration * Mini-Cog Score = 5/5 on 04/21/18 2) UTI - Improving, Recurrent, Previous admit 03/08-03/11/18 for +ESBL E Coli UTI/Sepsis * Pt originally started on IV Doxycycline in ED on 04/19/18, Started on Ertapenem (04/20/18) given prior admission hx and cultures * Urine Culture significant for E.coli +ESBL on 04/19/18 * Infectious Disease was consulted and agreed with treatment regimen throughout hospital course * Meds: Continue Ertapenem 3) MANDY - Resolved. Likely prerenal, most recent Creatinine is 0.70 (04/21/18) was Creatinine 1.39 on admission (04/19/18), previously 0.06 on 03/11/2018 * Improved GFR, 80 (04/21/18) was 36 on admission (04/19) * Pt improved greatly with IV Fluids which were stopped on 04/22/18 as she appears adequately hydrated with good renal fxn on most recent labs 4) Xerostomia - IMPROVED, chronic * Pt c/o Xerostomia on 04/21/18, She was encouraged to continue hydration efforts and oral hygiene * Pt was provided w/ Lemon-Glycerine Swabs to alleviate symptoms * Oral Hygiene Kit to prevent oral candidiasis in context that pt is on broad spectrum IV Abx, Inhaled Symbicort, and has dentures * Pt reported improvement of symptoms on 04/22/18 after using provided Swabs and Hygiene Kit * Patient Education: Instructed pt on importance of oral hygiene and overall health 5) Chronic Pain Syndrome - stable * Pt did not c/o pain while inpatient and Home Meds were continued throughout hospitalization * Discharge: Continue Home Meds as prescribed by PCP - Gabapentin 600mg twice daily, Duloxetine 20mg twice daily 6) AFIB and CHF - stable, currently in AFIB * Pt was monitored throughout hospitalization with Telemetry, with no reported cardiac abnormalities above baseline AFIB rhythm * IV Fluids were d/c'd on 04/22/18 as pt was adequately hydrated and had improved renal fxn, did not want to volume overload * Home Meds were continued throughout hospital course * Discharge: Continue Home Meds as prescribed by PCP - Apixaban 2.5mg twice daily, Diltiazem 120mg once daily 7) COPD - stable * Home meds were continued throughout hospital course, no ARDS or SOB reported. Expiratory Wheezes in all lung sotelo consistent w/ COPD. * Discharge: Continue Home Meds as prescribed by PCP - Karsten carcamon, Symbicort 2 puffs twice daily, Tiotropium 18mcg inhalation once daily 8) HTN - stable * Per ED Note, pt was hypotensive with systolic in the 80s on EVAC, improved with IV Fluids which were maintained throughout hospital course until 04/22/18 with MAP maintained > 90mmHg and resolution of MANDY * Home Meds were continued throughout hospital course * Discharge: Continue Home Meds as prescribed by PCP - Atenolol 25mg once daily 9) Hyperlipidemia - stable * Meds: Pt was given Pravastatin 20mg twice daily throughout hospital course * Discharge: Continue Home Meds as prescribed by PCP - Lovastatin 20mg twice daily 10) DVT Prophylaxis - * SCDs throughout hospitalization and daily pulse checks of the upper and lower extremity * Home Meds were given throughout hospital course * Discharge: Continue Home Meds as prescribed by PCP - Eliquis 2.5mg twice daily - Time Spent with Patient Total time spent providing and/or coordinating discharge services: - Quality: VTE Deep Vein Thrombosis/Pulmonary Embolism Present on Admission: No Exam Vital signs: Vital Signs 04/21/18 15:30 04/21/18 20:00 04/21/18 23:59 Temperature 97.9 F 97.9 F Pulse Rate 70 79 88 Respiratory Rate 18 16 Blood Pressure 151/74 H 163/76 H Pulse Oximetry 96 98 04/22/18 00:00 04/22/18 04:00 04/22/18 08:00 Temperature 97.8 F 97.8 F 97.8 F Pulse Rate 85 73 83 Respiratory Rate 18 18 20 Blood Pressure 175/79 H 149/69 H 152/82 H Pulse Oximetry 99 98 96 04/22/18 11:48 Temperature 97.4 F L Pulse Rate 60 Respiratory Rate 20 Blood Pressure 140/57 L Pulse Oximetry 96 Intake & Output 04/21/18 04/22/18 04/22/18 18:59 06:59 18:59 Intake Total 1600 / 1600 100 / 100 600 / 600 Output Total 650 / 650 650 / 650 Balance 950 / 950 -550 / -550 600 / 600 Weight 84 kg 84 kg Intake: IV 900 / 900 100 / 100 600 / 600 NS Inj 1,000 ML @ 100 mls/hr IV 800 / 800 100 / 100 500 / 500 .CONT .Q10H LINDSAY Rx#:[id number] INVanz Inj 1,000 MG In NS Inj 100 / 100 100 / 100 100 ML @ 200 mls/hr IV.SIG Q24H LINDSAY Rx#:[id number] Oral 700 / 700 Output: Urine 650 / 650 650 / 650 Other: Date of Last Bowel Movement 04/20/18 04/21/18 04/21/18 # Bowel Movements 1 Narrative: GEN: lying in bed, dressed in hospital gown, NAD, pleasant, cooperative, "friend " Elana at bedside HEENT: Head - normocephalic, atraumatic, no edema; Eye - nonicteric, noninjected , no conjunctival pallor; Oropharynx - Moist Mucosa, Dentures, No exudates CARDIO: Irregularly Irregular Rhythm and Pulses consistent w/ diagnosis of AFIB , Extremities cold to touch, Pulses intact throughout Lungs: Expiratory Wheezing Appreciated in all Lung Sotelo, No rales/crackles/ rhonchi heard GI: +BS all 4 quadrants, Abdomen soft, non-tender, nondistended, No organomegaly or masses noted : No suprapubic tenderness to palpation NEURO: Awake, Alert, Oriented x4. No focal neurologic deficits. Moving both upper and lower extremities spontaneously. PSYCH: Mood "good", Mood Congruent and Appropriate Affect. Insight and judgment normal. Mini-Cog 5/5 MSK: No obvious bony defects, edema. Left AKA SKIN: Cool, Dry, Intact, No rash/jaundice/petechiae/purpura Results - Impressions ITS Impressions Chest X-Ray 04/19/18 18:13 CONCLUSION: Stable appearance with no acute cardiopulmonary disease. There is no evidence of pneumonia. Head CT 04/19/18 18:13 CONCLUSION: 1. Suboptimal examination with motion artifact. No evidence of acute hemorrhage or mass effect. 2. Chronic sinusitis again noted involving the sphenoid sinuses. . <Jose Roque - Last Filed: 04/22/18 17:30> Date of admission: 04/19/18 21:21 Primary care physician: No Primary Care Physician Brief History from admission: Attending note: Patient admitted with recurrent UTI and encephalopathy as documented above. Patient update on day of discharge: Patient reports she is feeling well today. Eager to go back to her facility. DS: Summary Hospital Course: The exam, history, and the medical decision-making described in the above note were completed with the assistance of the medical student Marc Lopez MS3. I reviewed, edited and agree with the findings presented. I attest that I had a [id number] encounter with the patient on the same day, and personally performed and documented my assessment and findings in the medical record. 82-year-old female admitted with recurrent UTI due to ESBL and encephalopathy likely related to the UTI. The patient was admitted and treated with IV antibiotics under the guidance of infectious disease. Encephalopathy resolved. She is discharged back to the nursing facility on Azactam to complete the course of treatment. The rest of the patient's chronic conditions will remain stable and were treated with her home medications. She is discharged in stable condition. - Time Spent with Patient Total time spent providing and/or coordinating discharge services: Greater than 30 minutes Exam Vital signs: Vital Signs 04/21/18 20:00 04/21/18 23:59 04/22/18 00:00 Temperature 97.9 F 97.8 F Pulse Rate 79 88 85 Respiratory Rate 16 18 Blood Pressure 163/76 H 175/79 H Pulse Oximetry 98 99 04/22/18 04:00 04/22/18 08:00 04/22/18 11:48 Temperature 97.8 F 97.8 F 97.4 F L Pulse Rate 73 83 60 Respiratory Rate 18 20 20 Blood Pressure 149/69 H 152/82 H 140/57 L Pulse Oximetry 98 96 96 04/22/18 15:38 Temperature 98.0 F Pulse Rate 76 Respiratory Rate 20 Blood Pressure 132/59 L Pulse Oximetry 99 Intake & Output 04/21/18 04/22/18 04/22/18 18:59 06:59 18:59 Intake Total 1600 / 1600 100 / 100 960 / 960 Output Total 650 / 650 650 / 650 600 / 600 Balance 950 / 950 -550 / -550 360 / 360 Weight 84 kg 84 kg Intake: IV 900 / 900 100 / 100 600 / 600 NS Inj 1,000 ML @ 100 mls/hr IV 800 / 800 100 / 100 500 / 500 .CONT .Q10H LINDSAY Rx#:[id number] INVanz Inj 1,000 MG In NS Inj 100 / 100 100 / 100 100 ML @ 200 mls/hr IV.SIG Q24H LINDSAY Rx#:[id number] Oral 700 / 700 360 / 360 Output: Urine 650 / 650 650 / 650 Urine Amount (Catheter) 600 / 600 Indwelling Urethral Catheter 600 / 600 Other: Date of Last Bowel Movement 04/20/18 04/21/18 04/21/18 # Bowel Movements 1 Narrative: GENERAL: This is a well-nourished, well-developed patient, in no apparent distress. CARDIOVASCULAR: Normal rate and regular rhythm without murmurs, gallops, or rubs. RESPIRATORY: Good respiratory efforts. Breath sounds equal and clear to auscultation bilaterally. GASTROINTESTINAL: Abdomen soft, non-tender, non-distended. Normal active bowel sounds MUSCULOSKELETAL: Extremities without cyanosis, or edema. Status post left AKA NEURO: Alert & Oriented x4 to person, place, time, situation. PSYCH: Appropriate mood and affect. Results Procedures completed during hospitalization: None - Impressions ITS Impressions Chest X-Ray 04/19/18 18:13 CONCLUSION: Stable appearance with no acute cardiopulmonary disease. There is no evidence of pneumonia. Head CT 04/19/18 18:13 CONCLUSION: 1. Suboptimal examination with motion artifact. No evidence of acute hemorrhage or mass effect. 2. Chronic sinusitis again noted involving the sphenoid sinuses. . Discharge Plan - Discharge Order Discharge Orders: Discharge Order (Routine); Ordered 04/22/18 Ordered By: Jose Roque ED Use Only Admit Order (Routine); Ordered 04/19/18 Ordered By: Caitlin Candelario - Discharge Details Discharge Comment: OK to DC pending antibiotics recommendations from ID. - Physicians Team Primary Care Provider: Primary Care [place],No Attending Provider: Jose Roque Other Providers: Karon Bautista MD ; [facility],Agency
== END 2018-04-22 18:45 ==
LOC: NEPC 17:28 → NEDA 21:21 → N05 22:38
PROVIDERS: ADMIT Family Medicine; ATTEND Family Medicine